=== PATIENT | male | born 1965 | race Caucasian/White ===

== ENCOUNTER 2016-09-08 19:46 | Inpatient (IN) | payer SELFPAY ==
[~2016-09-08] VITALS: Ht 188 cm; Wt 84.0 kg
[2016-09-08 19:47] VITALS: BP 190/88; PULSE 124; RESP 18; TEMP 101.6; O2SAT 98
--- NOTE | 2016-09-08 21:49 | PD ---
HPI Chief Complaint: Injury Time Seen by Provider: 21:44 Travel History International Travel<30 days: No Contact w/Intl Traveler<30days: No Traveled to known affect area: No History of Present Illness HPI 51-year-old male came to the emergency room with history of right foot wound that is not healing. Patient has history of diabetes but he is not taking any medications since he says medication makes him sick. He hasn't checked his blood sugar in a while either. Patient says about 4-5 days ago he noticed a blood blister on his lateral aspect of the right foot. Since then the blister has popped and the wound has not been healing. He has been trying to clean it daily but it has started to look worse and black. He decided to come in today. In triage his temperature was 101.5. He says he's been able to walk on that foot. Patient does not have a primary care physician. PFSH Past Medical History Narrative Medical List of his past medical, surgical, social and family history is reviewed from the nursing note. Hypertension: Yes Tetanus Vaccination: < 5 Years Influenza Vaccination: No Past Surgical History Endocrine Surgery: Yes (LITHOTRIPSY) Social History Alcohol Use: Yes (WEEKENDS) Tobacco Use: No Substance Use: Yes (MARIJUANA) Allergies-Medications (Allergen,Severity, Reaction): Coded Allergies: Ampicillin (Verified Allergy, Unknown, 09/08/16) Comments List of his allergies reviewed from the nursing note. However upon asking patient said he broke out into hives in 1970s when he received ampicillin. Since then he has received amoxicillin and penicillin without any problems. Narrative Medication Awaiting for the nurse to do a med reconciliation. However patient told me that he is not taking any medications. Review of Systems Except as stated in HPI: all other systems reviewed are Neg Physical Exam Narrative GENERAL: Awake, alert, anxious, mild distress SKIN: Focused skin assessment warm/dry. Flushed face. Right foot at the head of the fifth metatarsal laterally has a 2 cm diameter black, dry gangrenous looking wound. On the plantar aspect there is a 2 x 3 cm hemorrhagic blister that is fluctuant and nontender. There is significant surrounding erythema on the dorsum of the foot at the mid plantar aspect. The nail bed of the great toe looks ecchymotic but could be gangrene is. The nail is still intact. HEAD: Atraumatic. Normocephalic. EYES: Pupils equal and round. No scleral icterus. No injection or drainage. ENT: No nasal bleeding or discharge. Mucous membranes pink and moist. NECK: Trachea midline. No JVD. CARDIOVASCULAR: Regular rate and rhythm. No murmur appreciated. RESPIRATORY: No accessory muscle use. Clear to auscultation. Breath sounds equal bilaterally. GASTROINTESTINAL: Abdomen soft, non-tender, nondistended. Hepatic and splenic margins not palpable. MUSCULOSKELETAL: No obvious deformities. No clubbing. No cyanosis. No edema. NEUROLOGICAL: Awake and alert. No obvious cranial nerve deficits. Motor grossly within normal limits. Normal speech. PSYCHIATRIC: Appropriate mood and affect; insight and judgment normal. Data Data Last Documented VS Vital Signs Date Time Temp Pulse Resp B/P Pulse Ox O2 Delivery O2 Flow Rate FiO2 09/08/16 23:10 108 16 97 Room Air 09/08/16 22:00 98.3 145/78 Orders Complete Blood Count With Diff (09/08/16 21:52) Comprehensive Metabolic Panel (09/08/16 21:52) Lactic Acid Sepsis Protocol (09/08/16 21:52) Urinalysis - C+S If Indicated (09/08/16 21:52) Blood Culture (09/08/16 21:52) Chest, Single Ap (09/08/16 21:52) Blood Glucose (09/08/16 21:52) Ecg Monitoring (09/08/16 21:52) Iv Access Insert/Monitor (09/08/16 21:52) Oximetry (09/08/16 21:52) Oxygen Administration (09/08/16 21:52) Piperacil-Tazo 4.5 Gm Premix (Zosyn 4.5 (09/08/16 21:52) Sodium Chlor 0.9% 1000 Ml Inj (Ns 1000 M (09/08/16 21:52) Sodium Chlor 0.9% 1000 Ml Inj (Ns 1000 M (09/08/16 21:52) Sodium Chlor 0.9% 1000 Ml Inj (Ns 1000 M (09/08/16 21:52) Resp Blood Gas Venous (09/08/16 ) Mri Foot W&W/O Contrast (09/08/16 ) Acetaminophen (Tylenol) (09/08/16 22:00) Blood Gas Venous (Vbg) (09/08/16 22:43) Admit Order (Ed Use Only) (09/08/16 23:38) Labs Laboratory Tests Test 09/08/16 09/08/16 09/08/16 22:20 22:25 22:43 Lactic Acid Level 1.3 mmol/L White Blood Count 10.3 TH/MM3 Red Blood Count 5.14 MIL/MM3 Hemoglobin 15.0 GM/DL Hematocrit 43.9 % Mean Corpuscular Volume 85.5 FL Mean Corpuscular Hemoglobin 29.1 PG Mean Corpuscular Hemoglobin 34.0 % Concent Red Cell Distribution Width 12.8 % Platelet Count 283 TH/MM3 Mean Platelet Volume 9.0 FL Neutrophils (%) (Auto) 86.3 % Lymphocytes (%) (Auto) 6.7 % Monocytes (%) (Auto) 6.4 % Eosinophils (%) (Auto) 0.1 % Basophils (%) (Auto) 0.5 % Neutrophils # (Auto) 8.9 TH/MM3 Lymphocytes # (Auto) 0.7 TH/MM3 Monocytes # (Auto) 0.7 TH/MM3 Eosinophils # (Auto) 0.0 TH/MM3 Basophils # (Auto) 0.0 TH/MM3 CBC Comment DIFF FINAL Differential Comment Sodium Level 134 MEQ/L Potassium Level 3.8 MEQ/L Chloride Level 100 MEQ/L Carbon Dioxide Level 26.9 MEQ/L Anion Gap 7 MEQ/L Blood Urea Nitrogen 14 MG/DL Creatinine 0.93 MG/DL Estimat Glomerular Filtration 85 ML/MIN Rate Random Glucose 318 MG/DL Calcium Level 9.2 MG/DL Total Bilirubin 1.0 MG/DL Aspartate Amino Transf 12 U/L (AST/SGOT) Alanine Aminotransferase 22 U/L (ALT/SGPT) Alkaline Phosphatase 170 U/L Total Protein 8.1 GM/DL Albumin 3.7 GM/DL Blood Gas Puncture Site PIV Blood Gas Patient Temperature 98.6 Venous Blood pH 7.43 Venous Blood Partial Pressure 40 mmHg CO2 Venous Blood Partial Pressure 32 mmHg O2 Venous Blood HCO3 26 mmol/L Venous Blood Oxygen Saturation 65 % Venous Blood Oxygen Content 12.4 Vol % Venous Blood Base Excess 2.1 mmol/L Oxygen Delivery Device RA Blood Gas Inspired Oxygen 21 % MDM Medical Decision Making Medical Screen Exam Complete: Yes Emergency Medical Condition: Yes Medical Record Reviewed: Yes Differential Diagnosis Dry gangrene, osteomyelitis, sepsis, diabetic wound Narrative Course 11:45 PM given the fever in triage patient was approached as a sepsis and sepsis protocol was started. I went ahead and gave him Zosyn and vancomycin. Patient has not had any reaction to the Zosyn yet. Patient was also given Tylenol for his fever. Blood test results otherwise came back looking okay. I have ordered an MRI of the foot with and without contrast. Awaiting for the MRI to be done and resulted. Patient has been admitted to the hospitalist. Patient has been told about this plan. In my opinion the foot would require aggressive debridement in the OR and depending on the MRI may even require partial amputation. Critical Care Narrative Aggregate critical care time was 30 minutes. Time to perform other separately billable procedures was not included in the critical care time. My time did not include minutes spent treating any other patients simultaneously or on activities that did not directly contribute to the patient's treatment. The services I provided to this patient were to treat and/or prevent clinically significant deterioration that could result in: Sepsis, sepsis protocol, possible osteomyelitis I provided critical care services requiring my management, as noted below: Chart data review, documentation time, medication orders and management, vital sign assessments/reviewing monitor data, ordering and reviewing lab tests, ordering and interpreting/reviewing x-rays and diagnostic studies, care of the patient and discussion of the patient with the admitting physicians. Procedures EKG Prior to Arrival: No Sepsis Criteria SIRS Criteria (2 or more): Temp > 100.9 or < 96.8, Heart rate over 90 Sepsis Criteria (SIRS+source): Infect source susp/known Diagnosis Primary Impression: Sepsis Qualified Code: A41.9 - Sepsis, due to unspecified organism Additional Impressions: Diabetic foot Fever Qualified Code: R50.9 - Fever, unspecified fever cause possible osteomyelitis Dry gangrene Hyperglycemia Admitting Information Admitting Physician Requests: Admit Sourav Muro MD Sep 08, 2016 21:49 Sourav Muro MD Sep 08, 2016 21:49
[2016-09-08] MEDS ORDERED: SODIUM CHLOR 0.9% 1000 ML INJ 1,000 ML IV ONE ×2 (21:52)
[2016-09-08] MEDS ORDERED: VANCOMYCIN INJ 1,000 MG in SODIUM CHLOR 0.9% 250 ML INJ 250 ML IV STA (21:52)
[2016-09-08] MEDS ORDERED: SODIUM CHLOR 0.9% 1000 ML INJ 700 ML IV ONE (21:52)
[2016-09-08] MEDS ORDERED: PIPERACIL-TAZO 4.5 GM PREMIX 100 ML IV STA (21:52)
[2016-09-08 22:00] VITALS: BP 145/78; PULSE 111; RESP 18; TEMP 98.3; O2SAT 98
[2016-09-08] MEDS ORDERED: ACETAMINOPHEN 325 MG TAB PO ONE (22:00)
--- NOTE | 2016-09-08 22:35 | RADRPT ---
EXAM DATE/TIME: 09/08/2016 21:59 [facility] COMPARISON: No previous studies available for comparison. INDICATIONS : Fever. Infection. MEDICAL HISTORY : None. SURGICAL HISTORY : None. ENCOUNTER: Initial ACUITY: 3 days PAIN SCORE: 5/10 LOCATION: Bilateral chest FINDINGS: A single view of the chest demonstrates the lungs to be symmetrically aerated without evidence of mas s, infiltrate or effusion. The cardiomediastinal contours are unremarkable. Osseous structures are intact. CONCLUSION: No acute disease. Henri Thomas MD on September 08, 2016 at 22:32 Board Certified Radiologist. This report was verified electronically.
[2016-09-08 22:51] LABS: AUTOMATED NEUTROPHIL # 8.9 TH/MM3 (1.8-7.7); BASOPHIL % 0.5 % (0.0-2.0); EOSINOPHIL % 0.1 % (0.0-4.0); HEMATOCRIT 43.9 % (39.0-51.0); HEMO FLAGS DIFF FINAL; LYMPH % 6.7 % (9.0-44.0); LYMPHOCYTE # 0.7 TH/MM3 (1.0-4.8); MEAN CELL VOLUME 85.5 FL (80.0-100.0); MEAN CORPUSCULAR HEMOGLOBIN 29.1 PG (27.0-34.0); MONO % 6.4 % (0.0-8.0); NEUT % 86.3 % (16.0-70.0); PLATELET COUNT 283 TH/MM3 (150-450); RED BLOOD COUNT 5.14 MIL/MM3 (4.50-5.90); RED CELL DISTRIBUTION WIDTH 12.8 % (11.6-17.2); WHITE BLOOD COUNT 10.3 TH/MM3 (4.0-11.0)
[2016-09-08 23:09] LABS: BLOOD GAS VENOUS BASE EXCESS 2.1 mmol/L (-2-2); BLOOD GAS VENOUS HCO3 26 mmol/L (22-26); BLOOD GAS VENOUS O2 CONTENT 12.4 Vol % (9.0-17.0); BLOOD GAS VENOUS O2 HGB SAT 65 % (70-76); BLOOD GAS VENOUS PCO2 40 mmHg (44-48); BLOOD GAS VENOUS PO2 32 mmHg (35-40); BLOOD GAS VENOUS pH 7.43 (7.360-7.400); CRITICAL VALUE NO; DRAW SITE PIV; FIO2 21 %; OXYGEN DEVICE RA; STAT NO; TEMP CORR TO 98.6
[2016-09-08 23:10] VITALS: PULSE 108; RESP 16; O2SAT 97
[2016-09-08 23:10] LABS: ALT (GPT) 22 U/L (12-78); ANION GAP 7 MEQ/L (5-15); AST (GOT) 12 U/L (15-37); BICARBONATE 26.9 MEQ/L (21.0-32.0); BLOOD UREA NITROGEN 14 MG/DL (7-18); CHLORIDE 100 MEQ/L (98-107); GLOMERULAR FILTRATION RATE 85 ML/MIN (>89); POTASSIUM 3.8 MEQ/L (3.5-5.1); SODIUM (NA) 134 MEQ/L (136-145)
[2016-09-08 23:12] LABS: ALKALINE PHOSPHATASE 170 U/L (45-117)
--- NOTE | 2016-09-08 23:52 | HHI.HP ---
HPI Service [facility] Primary Care Physician No Primary Care Physician Admission Diagnosis sepsis, diabetic foot, hyperglycemia Diagnoses: (1) Sepsis Diagnosis: Principal (2) Right foot infection Diagnosis: Principal (3) HTN (hypertension) Diagnosis: Principal (4) Dehydration Diagnosis: Principal (5) DM (diabetes mellitus) Diagnosis: Principal Travel History International Travel<30 Days: No Contact w/Intl Traveler <30 Da: No Traveled to Known Affected Are: No History of Present Illness This is a 51-year-old male with PMH of HTN, DM and Non-Compliance who presents to ER with complaint of right foot pain and swelling x4-5 days. States he noticed a blister on his foot which popped on its own, notes area has gotten progressively worse since then. Denies fever or chills. On arrival, BP 190/88 , HR 124, O2 sat 98% on RA, Temp 101.6. CBC unremarkable except for elevated neutrophil count. GFR 85, no previous labs for comparison. BS 318. CXR with no acute findings. MRI ft. With soft tissue inflammation around fifth MTP, no evidence of marrow replacement to confirm osteomyelitis. S/p Blood Cultures, Vanc/Zosyn in ER. Review of Systems Except as stated in HPI: all other systems reviewed are Neg ROS: 14 point review of systems otherwise negative. Past Family Social History Past Medical History PMH: HTN, DM and Non-Compliance Past Surgical History PAST SURGICAL HISTORY: Lithotripsy Allergies: Coded Allergies: Ampicillin (Verified Allergy, Unknown, 09/08/16) Family History PAST FAMILY HISTORY: Reviewed. No h/o DM or CAD Social History PAST SOCIAL HISTORY: Occasional alcohol. Negative for tobacco. Positive for Marijuana. Physical Exam Vital Signs Vital Signs Date Time Temp Pulse Resp B/P Pulse Ox O2 Delivery O2 Flow Rate FiO2 09/08/16 23:10 108 16 97 Room Air 09/08/16 23:10 98 Room Air 09/08/16 22:00 98.3 111 18 145/78 98 Room Air 09/08/16 22:00 98 Room Air 09/08/16 19:47 101.6 124 18 190/88 98 Room Air Physical Exam PE: GENERAL: Middle-aged male in no acute distress. HEENT: PERRLA, EOMI. No scleral icterus or conjunctival pallor. No lid lag or facial droop. CARDIOVASCULAR: Regular rate and rhythm. No obvious murmurs to auscultation. No chest tenderness to palpation. RESPIRATORY: No obvious rhonchi or wheezing. Clear to auscultation. Breath sounds equal bilaterally. GASTROINTESTINAL: Abdomen soft, non-tender, nondistended. BS normal. MUSCULOSKELETAL: Extremities without clubbing, cyanosis, or edema. No obvious deformities. Right foot w/ necrotic wound 5th toe lateral aspect. NEUROLOGICAL: Awake, alert and oriented x4. No focal neurologic deficits. Moving both upper and lower extremities spontaneously. Laboratory Laboratory Tests Test 09/08/16 09/08/16 09/08/16 22:20 22:25 22:43 Lactic Acid Level 1.3 White Blood Count 10.3 Red Blood Count 5.14 Hemoglobin 15.0 Hematocrit 43.9 Mean Corpuscular Volume 85.5 Mean Corpuscular Hemoglobin 29.1 Mean Corpuscular Hemoglobin 34.0 Concent Red Cell Distribution Width 12.8 Platelet Count 283 Mean Platelet Volume 9.0 Neutrophils (%) (Auto) 86.3 Lymphocytes (%) (Auto) 6.7 Monocytes (%) (Auto) 6.4 Eosinophils (%) (Auto) 0.1 Basophils (%) (Auto) 0.5 Neutrophils # (Auto) 8.9 Lymphocytes # (Auto) 0.7 Monocytes # (Auto) 0.7 Eosinophils # (Auto) 0.0 Basophils # (Auto) 0.0 CBC Comment DIFF FINAL Differential Comment Sodium Level 134 Potassium Level 3.8 Chloride Level 100 Carbon Dioxide Level 26.9 Anion Gap 7 Blood Urea Nitrogen 14 Creatinine 0.93 Estimat Glomerular Filtration 85 Rate Random Glucose 318 Calcium Level 9.2 Total Bilirubin 1.0 Aspartate Amino Transf 12 (AST/SGOT) Alanine Aminotransferase 22 (ALT/SGPT) Alkaline Phosphatase 170 Total Protein 8.1 Albumin 3.7 Blood Gas Puncture Site PIV Blood Gas Patient Temperature 98.6 Venous Blood pH 7.43 Venous Blood Partial Pressure 40 CO2 Venous Blood Partial Pressure 32 O2 Venous Blood HCO3 26 Venous Blood Oxygen Saturation 65 Venous Blood Oxygen Content 12.4 Venous Blood Base Excess 2.1 Oxygen Delivery Device RA Blood Gas Inspired Oxygen 21 Date/Time Procedure Status Source Growth 09/08/16 22:25 Aerobic Blood Culture Received Blood Peripheral Pending 09/08/16 22:25 Anaerobic Blood Culture Received Blood Peripheral Pending Result Diagram: 09/08/16222409/08/162224 Assessment and Plan Problem List: (1) Sepsis ICD Code: A41.9 Status: Acute (2) Right foot infection ICD Code: L08.9 Status: Acute (3) Dehydration ICD Code: E86.0 Status: Acute (4) HTN (hypertension) ICD Code: I10 Status: Acute (5) DM (diabetes mellitus) ICD Code: E11.9 Status: Acute Assessment and Plan A/P: 1. Sepsis: HR 124, Temp 101.6, WBC normal, elevated neutrophil count, Source- Right Foot Infection. S/p Blood Cult, Vanc/Zosyn in ER. Follow up cultures, continue IV Abx. 2. Right Foot Infection: ongoing right foot infection x5 days, Foot MRI w/ no evidence of osteomyelitis, images reviewed by me. Continue w/ above treatment/ plan. Wound Consult for further evaluation. 3. Dehydration: GFR 85, no previous labs for comparison, BUN/Creatinine normal. IVF for hydration, repeat labs in am. 4. HTN: BP 170's on arrival, currently 140's, will monitor. 5. DM: Uncontrolled, secondary to Non-Compliance. Sliding scale w/ Accu- Cheks. Check Hgb A1c. 6. DVT Prophylaxis: Heparin sq 7. Social work for d/c planning as needed. 8. Case discussed w/ ER physician at length. Physician Certification 2 Midnight Certification Type: Admission for Inpatient Services Order for Inpatient Services The services are ordered in accordance with Medicare regulations or non- Medicare payer requirements, as applicable. In the case of services not specified as inpatient-only, they are appropriately provided as inpatient services in accordance with the 2-midnight benchmark. Estimated LOS (days): 2 days is the estimated time the patient will need to remain in the hospital, assuming treatment plan goals are met and no additional complications. Post-Hospital Plan: Not yet determined Problem Qualifiers (1) Sepsis: Qualified Code: A41.9 - Sepsis, due to unspecified organism Alta Wilson MD Sep 08, 2016 23:52
[2016-09-09] VITALS (9 sets, daily range): BP systolic 160–195; BP diastolic 82–98; PULSE 88–110; RESP 16–20; TEMP 97.6–98.6; O2SAT 98–99
[2016-09-09] MEDS ORDERED: Vancomycin Consult Pharmacy 1 EA OTHER SCH
[2016-09-09] MEDS ORDERED: ACETAMINOPHEN 325 MG TAB PO PRN
[2016-09-09] MEDS ORDERED: ONDANSETRON HCL 4 MG/2 ML VIAL IVP PRN
[2016-09-09] MEDS ORDERED: DEXTROSE 50% IN WATER 50 ML VIAL(D50) IV PRN
[2016-09-09] MEDS ORDERED: BISACODYL 10 MG SUPP RECTAL PRN
[2016-09-09] MEDS ORDERED: SENNOSIDES 8.6 MG TAB PO PRN
[2016-09-09] MEDS ORDERED: MAGNESIUM HYDROXIDE SUSP 30 ML CUP PO PRN
[2016-09-09] MEDS ORDERED: MORPHINE SULFATE 4 MG/ML INJ IV PRN
[2016-09-09] MEDS ORDERED: LACTULOSE SYRUP 20 GM/30 ML CUP PO PRN
[2016-09-09] MEDS ORDERED: SODIUM CHLORIDE 0.9% FLUSH 10 ML FLUSH IV FLUSH PRN
[2016-09-09] MEDS ORDERED: GLUCAGON 1 MG/ML VIAL OTHER PRN
--- NOTE | 2016-09-09 00:52 | RADRPT ---
EXAM DATE/TIME: 09/08/2016 23:35 [facility] COMPARISON: No previous studies available for comparison. INDICATIONS : Osteomyelitis. Wound rt lateral foot 5th metatarsal area CONTRAST: 16 cc Omniscan (gadodiamide) IV MEDICAL HISTORY : Diabetes mellitus type 2. Renal calculi. SURGICAL HISTORY : Left leg surgery. ENCOUNTER: Initial ACUITY: 1 week PAIN SCORE: 6/10 LOCATION: Right foot TECHNIQUE: Multiplanar, multisequence MRI examination was performed without contrast and after the intravenous a dministration of gadolinium. FINDINGS: Study was performed without the benefit of a plain film. BONE/CARTILAGE: Bone marrow signal is homogeneous. Articular cartilage signal is within normal limits. TENDONS: All of the visualized tendons are intact. There is some soft tissue swelling in the dorsum of the nolan t and throughout the interosseous musculature particularly between the fourth and fifth metatarsal sh afts MISCELLANEOUS: Plantar aponeurosis is intact. Sinus tarsi is within normal limits. POST-CONTRAST: There is diffuse enhancement of the fifth MTP joint and stranding soft tissues. I do not see any lj ow replacement on the T1 image to confirm osteomyelitis. Plain film would be helpful to evaluate for osteolysis. CONCLUSION: Soft tissue inflammation is around the fifth MTP joint. I don't see any evidence of marrow replacemen t to confirm osteomyelitis. No evidence of acute fracture or tendinous retraction. Plain film would b e helpful to evaluate for foreign body and osteolysis. Claudio Colunga MD on September 09, 2016 at 0:45 Board Certified Radiologist. This report was verified electronically.
[2016-09-09] MEDS ORDERED: VANCOMYCIN INJ 1,750 MG in SODIUM CHLORID 0.9% 500 ML INJ 500 ML IV ONE (00:55)
[2016-09-09] MEDS: SODIUM CHLOR 0.9% 1000 ML INJ 1,000 ML IV SCH ×3 (01:07→19:52)
[2016-09-09] MEDS ORDERED: GADODIAMIDE PF 287 MG/ML 20 ML VIAL (for RAD MRI) IV ONE (01:24)
[2016-09-09 02:04] LABS: PROTHROMBIN TIME - PATIENT 10.7 SEC (9.8-11.6)
[2016-09-09] MEDS: INSULIN ASPART SUPPLEMENTAL SCALE SQ SCH ×4 (05:52→20:44)
[2016-09-09] MEDS: HEPARIN SODIUM - SQ 10,000 UNITS/ML VIAL SQ SCH ×2 (08:59→20:46)
[2016-09-09] MEDS: DOCUSATE SODIUM 50 MG/SENNA 8.6 MG TAB PO SCH ×2 (08:59→20:52)
[2016-09-09] MEDS: SODIUM CHLORIDE 0.9% FLUSH 10 ML FLUSH IV FLUSH SCH ×2 (09:00→20:52)
[2016-09-09] MEDS: CEFEPIME INJ 2,000 MG in SODIUM CHLORIDE 0.9% INJ 100 ML IV SCH ×2 (09:59→20:48)
[2016-09-09 10:54] LABS: AUTOMATED NEUTROPHIL # 5.6 TH/MM3 (1.8-7.7); BASOPHIL % 0.6 % (0.0-2.0); EOSINOPHIL # 0.1 TH/MM3 (0-0.4); EOSINOPHIL % 1.4 % (0.0-4.0); HEMATOCRIT 37.4 % (39.0-51.0); HEMO FLAGS DIFF FINAL; LYMPH % 13.3 % (9.0-44.0); MEAN CELL VOLUME 85.5 FL (80.0-100.0); MEAN CORPUSCULAR HGB CONC 33.9 % (32.0-36.0); MONO % 7.7 % (0.0-8.0); PLATELET COUNT 237 TH/MM3 (150-450); RED BLOOD COUNT 4.38 MIL/MM3 (4.50-5.90); RED CELL DISTRIBUTION WIDTH 12.8 % (11.6-17.2); WHITE BLOOD COUNT 7.3 TH/MM3 (4.0-11.0)
[2016-09-09 11:32] LABS: ALKALINE PHOSPHATASE 125 U/L (45-117); ALT (GPT) 17 U/L (12-78); ANION GAP 6 MEQ/L (5-15); AST (GOT) 11 U/L (15-37); BICARBONATE 27.3 MEQ/L (21.0-32.0); BLOOD UREA NITROGEN 10 MG/DL (7-18); CHLORIDE 106 MEQ/L (98-107); GLOMERULAR FILTRATION RATE 122 ML/MIN (>89); POTASSIUM 3.6 MEQ/L (3.5-5.1); SODIUM (NA) 139 MEQ/L (136-145); TOTAL BILIRUBIN ADULT 0.6 MG/DL (0.2-1.0)
--- NOTE | 2016-09-09 12:49 | HHI.PR ---
Subjective Remarks No acute events overnight. Afebrile since 7 PM last night. Vital signs stable. Patient denies any pain. States he is able to walk on his foot without any issue. Objective Vitals Vital Signs Date Time Temp Pulse Resp B/P Pulse Ox O2 Delivery O2 Flow Rate FiO2 09/09/16 08:20 Room Air 09/09/16 08:00 98.2 90 20 182/90 99 09/09/16 04:00 Room Air 09/09/16 04:00 97.6 90 18 188/90 99 09/09/16 03:05 91 09/09/16 03:05 Room Air 09/09/16 01:45 97.8 92 20 195/91 99 09/08/16 23:10 108 16 97 Room Air 09/08/16 23:10 98 Room Air 09/08/16 22:00 98.3 111 18 145/78 98 Room Air 09/08/16 22:00 98 Room Air 09/08/16 19:47 101.6 124 18 190/88 98 Room Air I/O 09/08/16 09/08/16 09/08/16 09/09/16 09/09/16 09/09/16 07:00 15:00 23:00 07:00 15:00 23:00 Intake Total 997 ml Balance 997 ml Intake Oral 300 ml IV Total 697 ml # Voids 1 # Bowel Movements 0 Result Diagram: 09/09/16 1030 09/09/16 1030 Objective Remarks GENERAL: Middle-aged male in no acute distress. HEENT: PERRLA, EOMI. No scleral icterus or conjunctival pallor. No lid lag or facial droop. CARDIOVASCULAR: Regular rate and rhythm. No obvious murmurs to auscultation. No chest tenderness to palpation. RESPIRATORY: No obvious rhonchi or wheezing. Clear to auscultation. Breath sounds equal bilaterally. GASTROINTESTINAL: Abdomen soft, non-tender, nondistended. BS normal. MUSCULOSKELETAL: Extremities without clubbing, cyanosis, or edema. No obvious deformities. Right foot w/ necrotic wound 5th toe lateral aspect. Surrounding erythema to the ankle. No fluctuance noted. NEUROLOGICAL: Awake, alert and oriented x4. No focal neurologic deficits. Moving both upper and lower extremities spontaneously. A/P Problem List: (1) Sepsis ICD Code: A41.9 Status: Acute (2) Right foot infection ICD Code: L08.9 Status: Acute (3) Dehydration ICD Code: E86.0 Status: Acute (4) HTN (hypertension) ICD Code: I10 Status: Acute (5) DM (diabetes mellitus) ICD Code: E11.9 Status: Acute Assessment and Plan 1. Sepsis: HR 124, Temp 101.6, WBC normal, elevated neutrophil count, Source- Right Foot Infection. S/p Blood Cult, Vanc/Zosyn in ER. Follow up cultures, continue IV Abx. No growth 1 day. 2. Right Foot Infection: ongoing right foot infection x5 days, Foot MRI w/ no evidence of osteomyelitis. Continue w/ above treatment/plan. Wound Consult for further evaluation. Consult podiatry for possible debridement. Foot x-ray pending. 3. HTN: BP 170's on arrival, remains elevated in the [id number] systolic. Started on lisinopril. 4. DM: Uncontrolled, secondary to Non-Compliance. Sliding scale w/ Accu- Cheks. Check Hgb A1c, pending. Started Levemir 5 units twice a day. 6. DVT Prophylaxis: Heparin sq 7. Social work for d/c planning as needed. Problem Qualifiers (1) Sepsis: Qualified Code: A41.9 - Sepsis, due to unspecified organism Larissa Arroyo MD R3 Sep 09, 2016 12:49
[2016-09-09] MEDS ORDERED: LISINOPRIL 5 MG TAB PO SCH (13:00)
[2016-09-09 13:05] LABS: HEMOGLOBIN A1a 1.3 %; HEMOGLOBIN Ao 76.2 %; HEMOGLOBIN F 1.7 %; HEMOGLOBIN P3 5.3 %
--- NOTE | 2016-09-09 13:49 | RADRPT ---
EXAM DATE/TIME: 09/09/2016 13:02 [facility] COMPARISON: No previous studies available for comparison. INDICATIONS : Right foot pain. MEDICAL HISTORY : Diabetes mellitus type II. SURGICAL HISTORY : None. ENCOUNTER: Subsequent ACUITY: 2 days PAIN SCORE: 3/10 LOCATION: Right foot. FINDINGS: Three view examination of the right foot demonstrates soft tissue swelling of the lateral foot with a small amount of subcutaneous air at the base of the fifth toe. No acute bony abnormality. No fractur e or dislocation. CONCLUSION: 1. Soft tissue swelling of the lateral right foot with small ocular subcutaneous air. Findings most c haracteristic of a cellulitis, possibly with a gas producing organism. No acute bony abnormality. Joe Jaime MD on September 09, 2016 at 13:45 Board Certified Radiologist. This report was verified electronically.
[2016-09-09] MEDS ORDERED: VANCOMYCIN 1,500 MG/NS 500 ML IV ONE ×2 (14:00)
[2016-09-09] MEDS: INSULIN DETEMIR 100 UNITS/ML VIAL SQ SCH (20:45)
[2016-09-10] VITALS (11 sets, daily range): BP systolic 118–200; BP diastolic 54–116; PULSE 74–106; RESP 16–20; TEMP 97.9–99.1; O2SAT 97–100
[2016-09-10] MEDS: hydrALAZINE HCL 20 MG/ML VIAL IV PUSH PRN ×2 (00:47→20:16)
[2016-09-10] MEDS: SODIUM CHLOR 0.9% 1000 ML INJ 1,000 ML IV SCH ×2 (05:47→15:52)
[2016-09-10] MEDS: INSULIN ASPART SUPPLEMENTAL SCALE SQ SCH ×3 (05:47→16:00)
[2016-09-10 06:52] LABS: BASOPHIL % 0.5 % (0.0-2.0); EOSINOPHIL # 0.1 TH/MM3 (0-0.4); EOSINOPHIL % 1.6 % (0.0-4.0); HEMATOCRIT 39.3 % (39.0-51.0); HEMO FLAGS DIFF FINAL; LYMPH % 12.8 % (9.0-44.0); MEAN CELL VOLUME 84.7 FL (80.0-100.0); MEAN CORPUSCULAR HEMOGLOBIN 28.8 PG (27.0-34.0); MONO % 9.7 % (0.0-8.0); NEUT % 75.4 % (16.0-70.0); PLATELET COUNT 257 TH/MM3 (150-450); RED BLOOD COUNT 4.64 MIL/MM3 (4.50-5.90); RED CELL DISTRIBUTION WIDTH 12.7 % (11.6-17.2); WHITE BLOOD COUNT 7.9 TH/MM3 (4.0-11.0)
[2016-09-10 07:49] LABS: ALT (GPT) 19 U/L (12-78); ANION GAP 6 MEQ/L (5-15); AST (GOT) 14 U/L (15-37); BICARBONATE 25.8 MEQ/L (21.0-32.0); BLOOD UREA NITROGEN 9 MG/DL (7-18); CHLORIDE 107 MEQ/L (98-107); GLOMERULAR FILTRATION RATE 136 ML/MIN (>89); POTASSIUM 3.5 MEQ/L (3.5-5.1); SODIUM (NA) 139 MEQ/L (136-145)
[2016-09-10 07:51] LABS: ALKALINE PHOSPHATASE 150 U/L (45-117); TOTAL BILIRUBIN ADULT 0.4 MG/DL (0.2-1.0)
[2016-09-10] MEDS: DOCUSATE SODIUM 50 MG/SENNA 8.6 MG TAB PO SCH ×2 (09:00→21:00)
[2016-09-10] MEDS: INSULIN DETEMIR 100 UNITS/ML VIAL SQ SCH ×3 (09:00→21:47)
[2016-09-10] MEDS: LISINOPRIL 10 MG TAB PO SCH (09:10)
[2016-09-10] MEDS: CEFEPIME INJ 2,000 MG in SODIUM CHLORIDE 0.9% INJ 100 ML IV SCH ×2 (09:11→21:00)
[2016-09-10] MEDS: SODIUM CHLORIDE 0.9% FLUSH 10 ML FLUSH IV FLUSH SCH ×2 (09:11→21:00)
--- NOTE | 2016-09-10 09:15 | PD.VS.CON ---
History of Present Illness Chief Complaint: right foot wound for more than a week. Consult Requested by: calvin Schreiber History of Present Illness 51 year old with right diabetic foot wound for more than a week. Hx of smoking and diabetes. Past/Family/Social History Past Medical History Past Medical History PMH: HTN, DM and Non-Compliance Past Surgical History PAST SURGICAL HISTORY: Lithotripsy Allergies: Coded Allergies: Ampicillin (Verified Allergy, Unknown, 09/08/16) Family History PAST FAMILY HISTORY: Reviewed. No h/o DM or CAD Social History PAST SOCIAL HISTORY: Occasional alcohol. Negative for tobacco. Positive for Marijuana. Coded Allergies: Ampicillin (Verified Allergy, Unknown, 09/08/16) Physical Exam Vitals/I&O Date Time Temp Pulse Resp B/P Pulse Ox O2 Delivery O2 Flow Rate FiO2 09/10/16 04:28 98.0 90 16 187/91 98 09/10/16 04:00 Room Air 09/10/16 00:07 98.3 85 16 188/93 98 09/10/16 00:00 Room Air 09/09/16 20:25 98.5 93 16 179/89 99 170/90 09/09/16 20:00 Room Air 09/09/16 20:00 110 09/09/16 16:00 Room Air 09/09/16 16:00 98.6 90 20 160/98 98 09/09/16 12:00 Room Air 09/09/16 12:00 97.7 98 20 186/82 99 09/10/16 09/10/16 09/10/16 07:00 15:00 23:00 Intake Total 2736 ml Balance 2736 ml Neck: supple Heart: regular Lungs: CTA b Vascular: palpable femoral bilaterally left dp/pt palpable right dp/pt with signals. Extremities: right foot with 5th MT eschar and plantar 1st MT ecchymosis. Erythema right foot. Laboratory Tests Test 09/09/16 09/10/16 10:30 06:00 White Blood Count 7.3 7.9 Red Blood Count 4.38 4.64 Hemoglobin 12.7 13.4 Hematocrit 37.4 39.3 Mean Corpuscular Volume 85.5 84.7 Mean Corpuscular Hemoglobin 29.0 28.8 Mean Corpuscular Hemoglobin 33.9 34.0 Concent Red Cell Distribution Width 12.8 12.7 Platelet Count 237 257 Mean Platelet Volume 9.1 9.2 Neutrophils (%) (Auto) 77.0 75.4 Lymphocytes (%) (Auto) 13.3 12.8 Monocytes (%) (Auto) 7.7 9.7 Eosinophils (%) (Auto) 1.4 1.6 Basophils (%) (Auto) 0.6 0.5 Neutrophils # (Auto) 5.6 6.0 Lymphocytes # (Auto) 1.0 1.0 Monocytes # (Auto) 0.6 0.8 Eosinophils # (Auto) 0.1 0.1 Basophils # (Auto) 0.0 0.0 CBC Comment DIFF FINAL DIFF FINAL Differential Comment Sodium Level 139 139 Potassium Level 3.6 3.5 Chloride Level 106 107 Carbon Dioxide Level 27.3 25.8 Anion Gap 6 6 Blood Urea Nitrogen 10 9 Creatinine 0.68 0.62 Estimat Glomerular Filtration 122 136 Rate Random Glucose 272 191 Hemoglobin A1c 11.3 Calcium Level 7.9 8.4 Total Bilirubin 0.6 0.4 Aspartate Amino Transf 11 14 (AST/SGOT) Alanine Aminotransferase 17 19 (ALT/SGPT) Alkaline Phosphatase 125 150 Total Protein 6.2 6.6 Albumin 2.6 2.6 Date/Time Procedure Status Source Growth 09/08/16 22:25 Aerobic Blood Culture - Preliminary Resulted Blood Peripheral NO GROWTH IN 1 DAY 09/08/16 22:25 Anaerobic Blood Culture - Preliminary Resulted Blood Peripheral NO GROWTH IN 1 DAY Last 48 hours Impressions Foot X-Ray 09/09/16 0000 Signed Impressions: Service Date/Time: Friday, September 09, 2016 13:02 - CONCLUSION: 1. Soft tissue swelling of the lateral right foot with small ocular subcutaneous air. Findings most characteristic of a cellulitis, possibly with a gas producing organism. No acute bony abnormality. Joe Jaime MD Chest X-Ray 09/08/162151 Signed Impressions: Service Date/Time: Thursday, September 08, 2016 21:59 - CONCLUSION: No acute disease. Henri Thomas MD Assessment and Plan Assessment: (1) Diabetic foot Status: Acute (2) Dry gangrene Status: Acute Plan 51 year old with diabetic foot ulcer with cellulitis and gangrenous changes of the right lower extremity. 1. Hgb a1c 2. CTA aorta with runoff. 3. Vein mapping 4. Arterial evaluation Merritt Rashid DO, FACS Findings on CTA are significant right SFA disease and distal popliteal/ tibioperoneal artery disease. Plan for angiogram to assess runoff vessels this afternoon (awaiting NPO for 8 hours). Needs right lower extremity recanalization vs. bypass. Vein mapping by duplex US with only upper leg vein that appears adequate. Patient made aware of vascular status and risk of limb loss. Merritt Rashid DO Sep 10, 2016 09:15
[2016-09-10] MEDS: HEPARIN SODIUM - SQ 10,000 UNITS/ML VIAL SQ SCH ×2 (09:19→21:46)
--- NOTE | 2016-09-10 09:46 | MB ---
cc: MITZY DOWNING DPM DATE OF CONSULTATION 09/10/2016 REASON FOR CONSULTATION Right foot a dark eschar. Diabetic foot infection. HISTORY OF PRESENT ILLNESS This is a 51-year-old male who states he developed a blood blister and pain on the right foot within the past 4-5 days. The area has gotten progressively worse, is red, swollen and now painful. The patient does admit he is a diabetic. He works; he owns his own [employer] business. He has been excessively working and walking, but now he is very concerned because the area is black. PAST MEDICAL HISTORY Positive for - 1. Diabetes. 2. Hypertension. FAMILY HISTORY He does note he has family, a blood line relative that suffered from diabetes and amputations. ALLERGIES AMPICILLIN. SOCIAL HISTORY Positive for marijuana. Occasional alcohol. No tobacco. OUTPATIENT MEDICATIONS I did not see a list. INPATIENT MEDICATIONS He is receiving - 1. Vancomycin. 2. Cefepime. 3. Please see complete med list in chart. PHYSICAL EXAMINATION VITALS: Temperature is 98, pulse rate 90, respiratory rate 16, blood pressure 187/91. He is sating 98% on room air. GENERAL: This is an alert and oriented gentleman seen bedside exhibiting nonlabored respirations. EXTREMITIES: The bilateral lower extremities are examined. The left lower extremity appeared to be free from any lesion or compromise of the soft tissue envelope. The right lower extremity is examined. There appears to be an eschar with very mild odor of the dorsal distal lateral fifth MPJ. There is significant philippe-eschar erythema that extends to the midfoot. There is no obvious signs of soft tissue emphysema. There is no drainage from the area, there is no obvious fluctuance. Upon attempting to palpate dorsalis pedis and posterior tibialis, I am not able. The foot, however, is warm. There is slight delayed capillary fill time to the right fifth digit. Digits one through five appear to be slightly cool. Sensation is significantly decreased below the patient's ankle. The limb appears to be warm at the level of the ankle and proximal. There is good range of motion of the ankle. LABORATORY FINDINGS White blood cell 7.9, hemoglobin/hematocrit 13 and 39, platelet count is 257. Chem-7 - Sodium is 139, potassium 3.5, chloride 107, CO2 25.8, BUN is 9, random glucose is 191, hemoglobin A1c is 11.3. PT is 10.7, INR 1.0. Blood cultures - No growth 1 day. IMAGING FINDINGS Foot x-ray - Soft tissue swelling, findings most consistent with cellulitis. Of note, possible gas-producing organism. No acute bony abnormality. MRI findings - Soft tissue inflation around the fifth MPJ. No obvious marrow placement to confirm osteomyelitis. There is no acute fracture. ASSESSMENT AND PLAN Right diabetic foot infection. Clinically there is no signs of a gas gangrene event. However, ischemia is noted and absent pulses. My concern is that the circulation maybe be a huge issue. The patient will likely need a fifth ray debridement and amputation of the digits. At this time my main concern is verifying circulation. We may need to move forward with surgery within the next 1-2 days pending the patient's clinical presentation. At this time I wish to evaluate the circulatory status and continue antibiotics. It is probably a good idea to add anaerobic coverage and consult Infectious Disease as well as Vascular. I spoke with Medicine and told them my clinical findings and plan. MARTA García/AMOS /8:25 AM /9:37 AM
[2016-09-10] MEDS ORDERED: IOHEXOL 350 MG/ML 10 ML VIAL (for RAD DIAG) IV ONE (10:32)
--- NOTE | 2016-09-10 12:00 | RADRPT ---
EXAM DATE/TIME: 09/10/2016 10:11 [facility] COMPARISON: No previous studies available for comparison. INDICATIONS : Evaluate for occlusion. IV CONTRAST: 100 cc Omnipaque 350 (iohexol) IV RADIATION DOSE: 2.97 CTDIvol (mGy) MEDICAL HISTORY : Cardiovascular disease. Diabetes mellitus type 2. Hypertension. SURGICAL HISTORY : None. ENCOUNTER: Initial ACUITY: 1 day PAIN SCALE: 0/10 LOCATION: Bilateral lower extremity TECHNIQUE: Volumetric scanning was performed using a multi-row detector CT scanner. The data was post processed with a variety of visualization algorithms including full volume maximum intensity projection, multi -planar sliding thin slab reformation, curved planar reformation, and surface rendering techniques. Using automated exposure control and adjustment of the mA and/or kV according to patient size, radiat ion dose was kept as low as reasonably achievable to obtain optimal diagnostic quality images. DICO M format image data is available electronically for review and comparison. FINDINGS: AORTA: History abdominal aorta with circumferential mixed plaque in the distal abdominal aorta wi th resultant moderate stenosis. The distal aorta measures 13 mm. No aortic aneurysm. VISCERAL ARTERIES: Single bilateral renal arteries which are widely patent. Celiac, SMA, and JASIEL are widely patent. RIGHT LEG: INFLOW: Mild stenosis of the mid common iliac artery secondary to eccentric mixed plaque. Interna l iliac artery is heavily diseased and occluded just beyond the origin. Common femoral artery is agustin nt. OUTFLOW: Bone erosion is patent. There is however mild stenosis of the profunda moderate stenosis of the proximal profunda. SFA is diffusely diseased in the mid to distal thigh with severe stenosis in the mid thigh secondary to noncalcified plaque and focal moderate to severe stenosis in the distal thigh secondary to eccentric calcified plaque. There is occlusion of the popliteal artery at the lev el of the knee with reconstitution of the proximal below-knee popliteal artery. RUNOFF: Small caliber 3 vessel runoff. The tibioperoneal trunk is heavily diseased with occlusion /critical stenosis at the bifurcation. The anterior tibial artery is not well-demonstrated beyond the ankle, likely occluded. LEFT LEG: INFLOW: Mild stenosis of the mid to distal cardiac artery secondary to concentric noncalcified pl aque. Severely diseased internal iliac artery which appears occluded proximally. The external iliac a rtery is patent. OUTFLOW: Profunda is patent. SFA is diffusely diseased in the mid to distal spine are with multip le tandem [id number] stenoses. There is a mild to moderate focal stenosis of the popliteal trina ry at the level of the knee. Below knee popliteal artery is patent. RUNOFF: There is limited three-vessel runoff. Heavily calcified tibioperoneal trunk with tandem m oderate stenoses. GENERAL FINDINGS: Visualized lung bases are clear. Evaluation of the abdominal viscera is limited due to arterial phase technique. Liver, spleen, adrenal glands, and pancreas are grossly unremarkable. Small calcified gal lstones in the gallbladder which otherwise appears unremarkable by CT. Kidneys demonstrate symmetrica l enhancement without evidence for hydronephrosis. There is a punctate calcification in the anterior left inferior likely reflecting calyceal calculus. No significant renal mass. The bowel appears unrem arkable without evidence for obstruction. No significant free fluid or drainable fluid collection. Bladder is mildly distended but otherwise unremarkable. Prostate and seminal vesicles are within norm al limits. CONCLUSION: 1. Moderate distal aortic stenosis secondary to circumferential mixed plaque. 2. No significant iliac inflow stenosis. 3. Diffuse outflow disease bilaterally, right > left. There are moderate to severe stenoses in the ri ght SFA in the mid to distal thigh with occlusion of the right popliteal artery at the level of the k nee joint. 4. Very limited runoff on the right with occlusion/critical stenosis of the distal tibioperoneal trun k and occlusion of the anterior tibial artery at the ankle. Therefore, there is no continuous single in line flow on the right. 5. Limited three-vessel runoff on the left. 6. Punctate obstructing left inferior pole renal calyceal calculus. Dta Barlow MD on September 10, 2016 at 11:30 Board Certified Radiologist. This report was verified electronically.
--- NOTE | 2016-09-10 12:48 | PD.PN.STU ---
Subjective Remarks Patient is a 51 year old male presenting meeting sepsis criteria for a black, painful lesion on his right lateral foot. He states that for the past week he has had increasing pain the area following a blister rupturing. The lesion turned black on 09-08-16 which prompted his presentation to the ED. He is a known diabetic with a family history of both maternal and paternal diabetes necessitating amputations. He does not take any medications and does not test his blood sugar regularly. He was a smoker for 25 years. On initial presentation he met sepsis criteria. He was started on broad spectrum antibiotics and admitted to evaluate possible surgical debridement/amputation of the necrotic tissue as well as supportive care for sepsis. Serial blood cultures have remained negative. Imaging on 09-09-2016 shows involvement of the surrounding soft tissues but no evidence of osteomyelitis. Today the patient states he feels well aside from the pain in his right foot localized around the lesion. He states his feet are usually "not very sensitive " and "numb". He denies chest pain, chest tightness, shortness of breath, headache, muscle aches, fever, cough, join pain, nausea, and vomiting. He is concerned with possible amputation of his foot or leg and the impact it will have on his ability to work in [employer]. He states that two years ago he had a large area of his left calf removed due to necrosis from an insect bite while working. The scar is well healed. Objective Vitals Vital Signs Date Time Temp Pulse Resp B/P Pulse Ox O2 Delivery O2 Flow Rate FiO2 09/10/16 08:00 97.9 106 18 191/91 99 09/10/16 08:00 Room Air 09/10/16 04:28 98.0 90 16 187/91 98 09/10/16 04:00 Room Air 09/10/16 00:07 98.3 85 16 188/93 98 09/10/16 00:00 Room Air 09/09/16 20:25 98.5 93 16 179/89 99 170/90 09/09/16 20:00 Room Air 09/09/16 20:00 110 09/09/16 16:00 Room Air 09/09/16 16:00 98.6 90 20 160/98 98 I/O 09/09/16 09/09/16 09/09/16 09/10/16 09/10/16 09/10/16 07:00 15:00 23:00 07:00 15:00 23:00 Intake Total 997 ml 1028 ml 600 ml 2736 ml Output Total 225 ml Balance 997 ml 1028 ml 375 ml 2736 ml Intake Oral 300 ml 600 ml 600 ml 480 ml IV Total 697 ml 428 ml 2256 ml Output Urine Total 225 ml # Voids 1 10 4 6 # Bowel Movements 0 0 0 Result Diagram: 09/10/16 0600 09/10/16 0600 Other Results Laboratory Tests Test 09/08/16 09/08/16 09/08/16 09/09/16 22:20 22:25 22:43 01:00 Lactic Acid Level 1.3 mmol/L (0.4-2.0) White Blood Count 10.3 TH/MM3 (4.0-11.0) Red Blood Count 5.14 MIL/MM3 (4.50-5.90) Hemoglobin 15.0 GM/DL (13.0-17.0) Hematocrit 43.9 % (39.0-51.0) Mean Corpuscular Volume 85.5 FL (80.0-100.0) Mean Corpuscular Hemoglobin 29.1 PG (27.0-34.0) Mean Corpuscular Hemoglobin 34.0 % Concent (32.0-36.0) Red Cell Distribution Width 12.8 % (11.6-17.2) Platelet Count 283 TH/MM3 (150-450) Mean Platelet Volume 9.0 FL (7.0-11.0) Neutrophils (%) (Auto) 86.3 % (16.0-70.0) Lymphocytes (%) (Auto) 6.7 % (9.0-44.0) Monocytes (%) (Auto) 6.4 % (0.0-8.0) Eosinophils (%) (Auto) 0.1 % (0.0-4.0) Basophils (%) (Auto) 0.5 % (0.0-2.0) Neutrophils # (Auto) 8.9 TH/MM3 (1.8-7.7) Lymphocytes # (Auto) 0.7 TH/MM3 (1.0-4.8) Monocytes # (Auto) 0.7 TH/MM3 (0-0.9) Eosinophils # (Auto) 0.0 TH/MM3 (0-0.4) Basophils # (Auto) 0.0 TH/MM3 (0-0.2) CBC Comment DIFF FINAL Differential Comment Sodium Level 134 MEQ/L (136-145) Potassium Level 3.8 MEQ/L (3.5-5.1) Chloride Level 100 MEQ/L (98-107) Carbon Dioxide Level 26.9 MEQ/L (21.0-32.0) Anion Gap 7 MEQ/L (5-15) Blood Urea Nitrogen 14 MG/DL (7-18) Creatinine 0.93 MG/DL (0.60-1.30) Estimat Glomerular Filtration 85 ML/MIN (>89) Rate Random Glucose 318 MG/DL (74-106) Calcium Level 9.2 MG/DL (8.5-10.1) Total Bilirubin 1.0 MG/DL (0.2-1.0) Aspartate Amino Transf 12 U/L (15-37) (AST/SGOT) Alanine Aminotransferase 22 U/L (12-78) (ALT/SGPT) Alkaline Phosphatase 170 U/L (45-117) Total Protein 8.1 GM/DL (6.4-8.2) Albumin 3.7 GM/DL (3.4-5.0) Blood Gas Puncture Site PIV Blood Gas Patient Temperature 98.6 Venous Blood pH 7.43 (7.360-7.400) Venous Blood Partial Pressure 40 mmHg (44-48) CO2 Venous Blood Partial Pressure 32 mmHg (35-40) O2 Venous Blood HCO3 26 mmol/L (22-26) Venous Blood Oxygen Saturation 65 % (70-76) Venous Blood Oxygen Content 12.4 Vol % (9.0-17.0) Venous Blood Base Excess 2.1 mmol/L (-2-2) Oxygen Delivery Device RA Blood Gas Inspired Oxygen 21 % Prothrombin Time 10.7 SEC (9.8-11.6) Prothromb Time International 1.0 RATIO Ratio Blood Type O POSITIVE Antibody Screen NEGATIVE Blood Bank Comment Test 09/09/16 09/10/16 10:30 06:00 White Blood Count 7.3 TH/MM3 7.9 TH/MM3 (4.0-11.0) (4.0-11.0) Red Blood Count 4.38 MIL/MM3 4.64 MIL/MM3 (4.50-5.90) (4.50-5.90) Hemoglobin 12.7 GM/DL 13.4 GM/DL (13.0-17.0) (13.0-17.0) Hematocrit 37.4 % 39.3 % (39.0-51.0) (39.0-51.0) Mean Corpuscular Volume 85.5 FL 84.7 FL (80.0-100.0) (80.0-100.0) Mean Corpuscular Hemoglobin 29.0 PG 28.8 PG (27.0-34.0) (27.0-34.0) Mean Corpuscular Hemoglobin 33.9 % 34.0 % Concent (32.0-36.0) (32.0-36.0) Red Cell Distribution Width 12.8 % 12.7 % (11.6-17.2) (11.6-17.2) Platelet Count 237 TH/MM3 257 TH/MM3 (150-450) (150-450) Mean Platelet Volume 9.1 FL 9.2 FL (7.0-11.0) (7.0-11.0) Neutrophils (%) (Auto) 77.0 % 75.4 % (16.0-70.0) (16.0-70.0) Lymphocytes (%) (Auto) 13.3 % 12.8 % (9.0-44.0) (9.0-44.0) Monocytes (%) (Auto) 7.7 % (0.0-8.0) 9.7 % (0.0-8.0) Eosinophils (%) (Auto) 1.4 % (0.0-4.0) 1.6 % (0.0-4.0) Basophils (%) (Auto) 0.6 % (0.0-2.0) 0.5 % (0.0-2.0) Neutrophils # (Auto) 5.6 TH/MM3 6.0 TH/MM3 (1.8-7.7) (1.8-7.7) Lymphocytes # (Auto) 1.0 TH/MM3 1.0 TH/MM3 (1.0-4.8) (1.0-4.8) Monocytes # (Auto) 0.6 TH/MM3 0.8 TH/MM3 (0-0.9) (0-0.9) Eosinophils # (Auto) 0.1 TH/MM3 0.1 TH/MM3 (0-0.4) (0-0.4) Basophils # (Auto) 0.0 TH/MM3 0.0 TH/MM3 (0-0.2) (0-0.2) CBC Comment DIFF FINAL DIFF FINAL Differential Comment Sodium Level 139 MEQ/L 139 MEQ/L (136-145) (136-145) Potassium Level 3.6 MEQ/L 3.5 MEQ/L (3.5-5.1) (3.5-5.1) Chloride Level 106 MEQ/L 107 MEQ/L (98-107) (98-107) Carbon Dioxide Level 27.3 MEQ/L 25.8 MEQ/L (21.0-32.0) (21.0-32.0) Anion Gap 6 MEQ/L (5-15) 6 MEQ/L (5-15) Blood Urea Nitrogen 10 MG/DL (7-18) 9 MG/DL (7-18) Creatinine 0.68 MG/DL 0.62 MG/DL (0.60-1.30) (0.60-1.30) Estimat Glomerular Filtration 122 ML/MIN 136 ML/MIN Rate (>89) (>89) Random Glucose 272 MG/DL 191 MG/DL (74-106) (74-106) Hemoglobin A1c 11.3 % (4.3-6.0) Calcium Level 7.9 MG/DL 8.4 MG/DL (8.5-10.1) (8.5-10.1) Total Bilirubin 0.6 MG/DL 0.4 MG/DL (0.2-1.0) (0.2-1.0) Aspartate Amino Transf 11 U/L (15-37) 14 U/L (15-37) (AST/SGOT) Alanine Aminotransferase 17 U/L (12-78) 19 U/L (12-78) (ALT/SGPT) Alkaline Phosphatase 125 U/L 150 U/L (45-117) (45-117) Total Protein 6.2 GM/DL 6.6 GM/DL (6.4-8.2) (6.4-8.2) Albumin 2.6 GM/DL 2.6 GM/DL (3.4-5.0) (3.4-5.0) Imaging Last 72 hours Impressions Foot X-Ray 09/09/16 0000 Signed Impressions: Service Date/Time: Friday, September 09, 2016 13:02 - CONCLUSION: 1. Soft tissue swelling of the lateral right foot with small ocular subcutaneous air. Findings most characteristic of a cellulitis, possibly with a gas producing organism. No acute bony abnormality. Joe Jaime MD Chest X-Ray 09/08/162151 Signed Impressions: Service Date/Time: Thursday, September 08, 2016 21:59 - CONCLUSION: No acute disease. Henri Thomas MD Foot MRI 09/08/16 0000 Signed Impressions: Service Date/Time: Thursday, September 08, 2016 23:35 - CONCLUSION: Soft tissue inflammation is around the fifth MTP joint. I don't see any evidence of marrow replacement to confirm osteomyelitis. No evidence of acute fracture or tendinous retraction. Plain film would be helpful to evaluate for foreign body and osteolysis. Claudio Colunga MD Objective Remarks General- Patient is well developed, well nourished, anxious Cardiovascular- Regualr rate and rhythm, no rubs murmurs or gallops Pulmonary- Breath sounds clear bilaterally Integumentary- 6cm by 3cm lesion noted on the right lateral foot with ulceration of the skin. There is minimal thin clear drainage from the wound Vascular- Femoral pulses palpable, posterior tibial pulse 1+ on left and absent on right, Dorsalis pedis 2+ on left and 1+ on right Neuro- Decreased sensation bilaterally, inability to distinguish light touch Medications and IVs Current Medications Medications (Trade) Dose Ordered Sig/Wilma Route PRN Reason Start Time Stop Time Status Last Admin Dose Admin Dextrose (D50w (Vial) Inj) 50 ml UNSCH PRN IV HYPOGLYCEMIA-SEE COMMENTS 09/09/16 00:00 Glucagon 1 mg 1 mg UNSCH PRN OTHER HYPOGLYCEMIA-SEE COMMENTS 09/09/16 00:00 Pharmacy Profile Note 0 ml @ 0 mls/hr UNSCH OTHER 09/09/16 00:00 Cefepime HCl 2000 mg/Sodium Chloride 100 ml @ 200 mls/hr Q12H IV 09/09/16 09:00 09/10/16 09:11 Sodium Chloride (NS 1000 ml Inj) 1,000 ml @ 100 mls/hr Q10H IV 09/08/16 23:52 09/10/16 05:47 Sodium Chloride (NS Flush) 2 ml UNSCH PRN IV FLUSH FLUSH AFTER USING IV ACCESS 09/09/16 00:00 Sodium Chloride (NS Flush) 2 ml BID IV FLUSH 09/09/16 09:00 09/10/16 09:11 Ondansetron HCl (Zofran Inj) 4 mg Q6H PRN IVP NAUSEA OR VOMITING 09/09/16 00:00 Heparin Sodium (Porcine) (Heparin Inj) 5,000 units Q12H SQ 09/09/16 09:00 09/10/16 09:19 Acetaminophen (Tylenol) 650 mg Q6H PRN PO FEVER/PAIN SCALE 1 TO 2 09/09/16 00:00 Acetaminophen/ Hydrocodone Bitart ([place] 5-325 Mg) 1 tab Q4H PRN PO PAIN SCALE 3 TO 5 09/09/16 00:00 Morphine Sulfate (Morphine Inj) 2 mg Q3H PRN IV Pain 6-10 09/09/16 00:00 Senna/Docusate Sodium (Hailey-Colace) 1 tab BID PO 09/09/16 09:00 Magnesium Hydroxide (Milk Of Magnesia Liq) 30 ml Q12H PRN PO MILD - MODERATE CONSTIPATION 09/09/16 00:00 Sennosides (Senokot) 17.2 mg Q12H PRN PO MODERATE - SEVERE CONSTIPATION 09/09/16 00:00 Bisacodyl (Dulcolax Supp) 10 mg DAILY PRN RECTAL SEVERE CONSITIPATION 09/09/16 00:00 Lactulose (Lactulose Liq) 30 ml DAILY PRN PO SEVERE CONSITIPATION 09/09/16 00:00 Miscellaneous Information SPECIFIC LAB TO BE GREG... ONCE ONCE .XX 09/10/16 13:45 09/10/16 13:46 Insulin Detemir (Levemir Inj) 5 units Q12HR SQ 09/09/16 21:00 09/09/16 20:45 Hydralazine HCl (Apresoline Inj) 10 mg Q4H PRN IV PUSH SBP>180, DBP>100 09/09/16 13:00 09/10/16 00:47 Lisinopril (Prinivil) 10 mg DAILY PO 09/10/16 09:00 09/10/16 09:10 A/P Assessment and Plan Wound concerning for impaired healing from minimal circulation and sensation secondary to diabetic neuropathy. Vascular surgery consulted and requested SHANNON testing to evaluate extent of impaired circulation. Pending results of testing surgical intervention for debridement with possible amputation of the right 5th metatarsal expected within the next day. 1)Necrotic foot ulcer 2)Uncontrolled Diabetes Mellitus 3)Diabetic neuropathy 4)Smoker (former) Discharge Planning Pending evaluation by vascular surgery Sariah Bangura M3 Sep 10, 2016 12:48
[2016-09-10] MEDS ORDERED: PHARMACY ORDERED LAB ONE (13:45)
--- NOTE | 2016-09-10 14:58 | RADRPT ---
EXAM DATE/TIME: 09/10/2016 00:00 [facility] COMPARISON: No previous studies available for comparison. INDICATIONS : Sepsis, Diabetic Foot Infection, Hyperglycemia TECHNIQUE: Five-station segmental examination of the lower extremities was performed. Pulsed-cuff waveform tracings and pressures were recorded. Ankle-brachial indices and toe-brachial indices were calculated. PRESSURES (mmHg): Brachial (arm): Right IV SITE Left 211 Left Lower Thigh: Right 210 Left 225 Calf: Right 190 Left 207 Ankle: Right 103 Left 212 Toe: Right 48 Left 153 SHANNON: Right 0.49 Left 1.00 TBI: Right 0.23 Left 0.73 PULSED CUFF WAVEFORMS: Biphasic waveforms to the right knee with monophasic waveforms in the right ankle and toe. Biphasic w aveforms throughout the left. CONCLUSION: 1. Significantly diminished blood flow on the right, rest pain range, corresponding to outflow and ru noff disease. 2. Decreased blood flow on the left corresponding to mild outflow disease. SHANNON is likely falsely elev ated due to noncompressible vessels. Dat Barlow MD on September 10, 2016 at 14:26 Board Certified Radiologist. This report was verified electronically.
--- NOTE | 2016-09-10 16:36 | RADRPT ---
EXAM DATE/TIME: 09/10/2016 12:28 [facility] COMPARISON: No previous studies available for comparison. INDICATIONS : Preop arterial surgery. Diabetic foot ulcer. MEDICAL HISTORY : Hypertension. Renal calculi. Diabetes. Substance use. SURGICAL HISTORY : Litrotripsy. ENCOUNTER: Initial ACUITY: 1 day PAIN SCORE: 0/10 LOCATION: Bilateral leg. TECHNIQUE: Venous ultrasound of the left and right leg was performed from the inguinal ligament to the proximal calf. Real-time, color Doppler and spectral tracing, compression and augmentation techniques were us ed. FINDINGS: RIGHT LEG: There is normal compressibility of the deep venous system from the inguinal region to the proximal ca lf. No echogenic clot is seen in the lumen of the common femoral, femoral, popliteal, and posterior tibial veins. There is a normal response of the venous system to proximal and distal augmentation an d respiration. Incidental note is made of enlarged right inguinal lymph nodes the largest measuring 3.8 x 0.9 x 1.7 cm. LEFT LEG: There is normal compressibility of the deep venous system from the inguinal region to the proximal ca lf. No echogenic clot is seen in the lumen of the common femoral, femoral, popliteal, and posterior tibial veins. There is a normal response of the venous system to proximal and distal augmentation an d respiration. CONCLUSION: 1. No sonographic evidence for lower extremity DVT. 2. Incidental note of nonspecific right inguinal adenopathy. Dat Barlow MD on September 10, 2016 at 16:31 Board Certified Radiologist. This report was verified electronically.
[2016-09-10] MEDS: HEPARIN SODIUM - IV 10,000 UNITS/10 ML VIAL ONE ×2 (16:56→17:16)
[2016-09-10] MEDS: MIDAZOLAM HCL 5 MG/ML VIAL (1 ML) ONE ×6 (16:56→17:58)
[2016-09-10] MEDS ORDERED: IOHEXOL 300 MG/ML 100 ML BTL (for Rad CT) OTHER ONE (16:57)
[2016-09-10] MEDS ORDERED: VANCOMYCIN INJ 1,250 MG in SODIUM CHLOR 0.9% 250 ML INJ 250 ML IV SCH (17:00)
--- NOTE | 2016-09-10 17:00 | RADRPT ---
EXAM DATE/TIME: 09/10/2016 15:13 [facility] COMPARISON: No previous studies available for comparison. INDICATIONS : Preop arterial surgery. Diabetic foot ulcer. MEDICAL HISTORY : Hypertension. Renal calculi. Diabetes. Substance use. SURGICAL HISTORY : Litrotripsy. ENCOUNTER: Initial ACUITY: 1 day PAIN SCORE: 0/10 LOCATION: Bilateral leg. GREATER SAPHENOUS VEIN THIGH: PROXIMAL: Right 4 mm Left 3 mm MID: Right 3 mm Left 1 mm DISTAL: Right 3 mm Left 2 mm CALF: PROXIMAL: Right 2 mm Left 1 mm MID: Right 1 mm Left 1 mm DISTAL: Right 3 mm Left 2 mm FINDINGS: The venous system of the lower extremities are patent by color Doppler imaging. Measurements of the leg veins (in mm) are listed above. CONCLUSION: Venous mapping as above. Kumar De La Paz MD on September 10, 2016 at 16:57 Board Certified Radiologist. This report was verified electronically.
--- NOTE | 2016-09-10 17:06 | HHI.PR ---
Subjective Remarks Patient is very anxious about the possibility of partial amputation. Otherwise he has no new complaints. Pain is controlled. Patient reports vascular surgery is planning for endovascular intervention. Objective Vitals Vital Signs Date Time Temp Pulse Resp B/P Pulse Ox O2 Delivery O2 Flow Rate FiO2 09/10/16 12:00 97.9 96 18 190/100 99 09/10/16 08:16 99 09/10/16 08:00 97.9 106 18 191/91 99 09/10/16 08:00 Room Air 09/10/16 04:28 98.0 90 16 187/91 98 09/10/16 04:00 Room Air 09/10/16 00:07 98.3 85 16 188/93 98 09/10/16 00:00 Room Air 09/09/16 20:25 98.5 93 16 179/89 99 170/90 09/09/16 20:00 Room Air 09/09/16 20:00 110 I/O 09/09/16 09/09/16 09/09/16 09/10/16 09/10/16 09/10/16 07:00 15:00 23:00 07:00 15:00 23:00 Intake Total 997 ml 1028 ml 600 ml 2736 ml 400 ml Output Total 225 ml Balance 997 ml 1028 ml 375 ml 2736 ml 400 ml Intake Oral 300 ml 600 ml 600 ml 480 ml IV Total 697 ml 428 ml 2256 ml 400 ml Output Urine Total 225 ml # Voids 1 10 4 6 # Bowel Movements 0 0 0 Result Diagram: 09/10/16 0600 09/10/16 0600 Imaging Last Impressions Lower Extremity Ultrasound 09/10/16 0000 Signed Impressions: Service Date/Time: Saturday, September 10, 2016 12:28 - CONCLUSION: 1. No sonographic evidence for lower extremity DVT. 2. Incidental note of nonspecific right inguinal adenopathy. Dat Barlow MD Aorta w/Runoff CTA 09/10/16 0000 Signed Impressions: Service Date/Time: Saturday, September 10, 2016 10:11 - CONCLUSION: 1. Moderate distal aortic stenosis secondary to circumferential mixed plaque. 2. No significant iliac inflow stenosis. 3. Diffuse outflow disease bilaterally, right > left. There are moderate to severe stenoses in the right SFA in the mid to distal thigh with occlusion of the right popliteal artery at the level of the knee joint. 4. Very limited runoff on the right with occlusion/critical stenosis of the distal tibioperoneal trunk and occlusion of the anterior tibial artery at the ankle. Therefore, there is no continuous single in line flow on the right. 5. Limited three-vessel runoff on the left. 6. Punctate obstructing left inferior pole renal calyceal calculus. Dat Barlow MD Foot X-Ray 09/09/16 0000 Signed Impressions: Service Date/Time: Friday, September 09, 2016 13:02 - CONCLUSION: 1. Soft tissue swelling of the lateral right foot with small ocular subcutaneous air. Findings most characteristic of a cellulitis, possibly with a gas producing organism. No acute bony abnormality. Joe Jaime MD Chest X-Ray [id number]/08/[id number] Signed Impressions: Service Date/Time: Thursday, September 08, 2016 21:59 - CONCLUSION: No acute disease. Henri Thomas MD Foot MRI 09/08/16 0000 Signed Impressions: Service Date/Time: Thursday, September 08, 2016 23:35 - CONCLUSION: Soft tissue inflammation is around the fifth MTP joint. I don't see any evidence of marrow replacement to confirm osteomyelitis. No evidence of acute fracture or tendinous retraction. Plain film would be helpful to evaluate for foreign body and osteolysis. Claudio Colunga MD Objective Remarks GENERAL: Patient in no acute distress. HEENT: PERRLA, EOMI. No scleral icterus or conjunctival pallor. No lid lag or facial droop. CARDIOVASCULAR: Regular rate and rhythm. No obvious murmurs to auscultation. No chest tenderness to palpation. RESPIRATORY: No obvious rhonchi or wheezing. Clear to auscultation. Breath sounds equal bilaterally. GASTROINTESTINAL: Abdomen soft, non-tender, nondistended. BS normal. MUSCULOSKELETAL: Right foot w/ necrotic wound 5th toe lateral aspect and plantar aspect. NEUROLOGICAL: Awake, alert and oriented x4. No focal neurologic deficits. Moving both upper and lower extremities spontaneously. A/P Problem List: (1) Sepsis ICD Code: A41.9 Status: Acute (2) Right foot infection ICD Code: L08.9 Status: Acute (3) Dehydration ICD Code: E86.0 Status: Acute (4) HTN (hypertension) ICD Code: I10 Status: Acute (5) DM (diabetes mellitus) ICD Code: E11.9 Status: Acute Assessment and Plan 51-year-old male admitted with 1. Sepsis: HR 124, Temp 101.6, WBC normal, elevated neutrophil count, Source- Right Foot Infection. S/p Blood Cult, Vanc/Zosyn in ER. Follow up cultures, continue IV Abx. No growth so far. 2. Right Foot gangrene/cellulitis/ischemia: ongoing right foot infection x5 days, Foot MRI w/ no evidence of osteomyelitis. Podiatry and vascular surgery following. Plan for endovascular intervention today per vascular surgery. 3. HTN: BP 170's on arrival, remains elevated in the [id number] systolic. Started on lisinopril. Increase to 10 mg daily. Anxiety likely contributing. Add Ativan as needed. 4. DM: Uncontrolled, secondary to Non-Compliance. Sliding scale w/ Accu- Cheks. Hemoglobin A1c 11.3. Patient counseled regarding the need to be compliant. Continue Levemir 5 units twice a day. Sliding scale insulin with Accu-Cheks. 6. DVT Prophylaxis: Heparin sq Problem Qualifiers (1) Sepsis: Qualified Code: A41.9 - Sepsis, due to unspecified organism Jolie Islas MD Sep 10, 2016 17:06
[2016-09-10] MEDS ORDERED: LABETALOL HCL 100 MG/20 ML VIAL ONE (17:12)
[2016-09-10] MEDS ORDERED: CLOPIDOGREL 75 MG TAB ONE (18:05)
--- NOTE | 2016-09-10 18:27 | HHI.PR ---
Immediate Post Op Note Procedure Date: Sep 10, 2016 Pre Op Diagnosis: (1) Right foot infection Post Op Diagnosis: (1) Right foot infection Surgeon: Merritt Rashid Yarder Operator(s): SABRINA Procedure: recanalization right popliteal artery with DCB. drug coated stent of right SFA for high grade stenosis Findings: right SFA with high grade stenosis and right popliteal artery with EDUCATION INSTRUCTOR. Additional Information: NA Complications: None Specimen(s) removed: NA Estimated blood loss: Minimal Anesthesia: Conscious Sedation Drains: None Fluids: one liter IVF Tourniquet time (min at mmHg) NA Patient to: PACU Patient Condition: Good Implant/Devices: SEE IMPLANT LOG (if applicable) Date/Time of Procedure: SEE SURGICAL CARE RECORD Merritt Rashid DO Sep 10, 2016 18:27
--- NOTE | 2016-09-10 18:30 | PD.VS.PN ---
Subjective POD #: 0 Procedure(s): Recanalization of right popliteal artery Balloon angioplasty and selective stenting right SFA Objective Vitals/I&O Date Time Temp Pulse Resp B/P Pulse Ox O2 Delivery O2 Flow Rate FiO2 09/10/16 16:30 97.9 96 18 200/100 99 09/10/16 15:00 90 09/10/16 12:00 97.9 96 18 190/100 99 09/10/16 08:16 99 09/10/16 08:00 97.9 106 18 191/91 99 09/10/16 08:00 Room Air 09/10/16 04:28 98.0 90 16 187/91 98 09/10/16 04:00 Room Air 09/10/16 00:07 98.3 85 16 188/93 98 09/10/16 00:00 Room Air 09/09/16 20:25 98.5 93 16 179/89 99 170/90 09/09/16 20:00 Room Air 09/09/16 20:00 110 09/10/16 09/10/16 09/10/16 07:00 15:00 23:00 Intake Total 2736 ml 640 ml Balance 2736 ml 640 ml Pulses: Bilateral femoral pulses palpable. Bilateral PT and DP with strong multiphasic signals. Laboratory Laboratory Tests Test 09/10/16 06:00 White Blood Count 7.9 Red Blood Count 4.64 Hemoglobin 13.4 Hematocrit 39.3 Mean Corpuscular Volume 84.7 Mean Corpuscular Hemoglobin 28.8 Mean Corpuscular Hemoglobin 34.0 Concent Red Cell Distribution Width 12.7 Platelet Count 257 Mean Platelet Volume 9.2 Neutrophils (%) (Auto) 75.4 Lymphocytes (%) (Auto) 12.8 Monocytes (%) (Auto) 9.7 Eosinophils (%) (Auto) 1.6 Basophils (%) (Auto) 0.5 Neutrophils # (Auto) 6.0 Lymphocytes # (Auto) 1.0 Monocytes # (Auto) 0.8 Eosinophils # (Auto) 0.1 Basophils # (Auto) 0.0 CBC Comment DIFF FINAL Differential Comment Sodium Level 139 Potassium Level 3.5 Chloride Level 107 Carbon Dioxide Level 25.8 Anion Gap 6 Blood Urea Nitrogen 9 Creatinine 0.62 Estimat Glomerular Filtration 136 Rate Random Glucose 191 Calcium Level 8.4 Total Bilirubin 0.4 Aspartate Amino Transf 14 (AST/SGOT) Alanine Aminotransferase 19 (ALT/SGPT) Alkaline Phosphatase 150 Total Protein 6.6 Albumin 2.6 Date/Time Procedure Status Source Growth 09/08/16 22:25 Aerobic Blood Culture - Preliminary Resulted Blood Peripheral NO GROWTH IN 2 DAYS 09/08/16 22:25 Anaerobic Blood Culture - Preliminary Resulted Blood Peripheral NO GROWTH IN 2 DAYS Assessment and Plan Assessment: (1) Diabetic foot Status: Acute (2) Dry gangrene Status: Acute Plan 51 year old with diabetic foot ulcer with cellulitis and gangrenous changes of the right lower extremity. Patient underwent endovascular revascularization of right lower extremity. Should be started on plavix. transfer to [facility] after stabilized in DOCU. Merritt Rashid DO, Merritt Miller DO Sep 10, 2016 18:30
[2016-09-10] MEDS: amLODIPine BESYLATE 5 MG TAB PO SCH (18:46)
--- NOTE | 2016-09-10 18:51 | PD.POD ---
Subjective Remarks Patient not in room SP Vascular procedure Past Med/Surg/Social History Social History Smoking Status: Former Smoker Objective Vital Signs Vital Signs Date Time Temp Pulse Resp B/P Pulse Ox O2 Delivery O2 Flow Rate FiO2 09/10/16 16:30 97.9 96 18 200/100 99 09/10/16 15:00 90 09/10/16 12:00 97.9 96 18 190/100 99 09/10/16 08:16 99 09/10/16 08:00 97.9 106 18 191/91 99 09/10/16 08:00 Room Air 09/10/16 04:28 98.0 90 16 187/91 98 09/10/16 04:00 Room Air 09/10/16 00:07 98.3 85 16 188/93 98 09/10/16 00:00 Room Air 09/09/16 20:25 98.5 93 16 179/89 99 170/90 09/09/16 20:00 Room Air 09/09/16 20:00 110 Coded Allergies: Ampicillin (Verified Allergy, Unknown, 09/08/16) Assessment & Plan A/P Right lateral foot wound eschar infection. Reviewed case with Vascular, received ok to proceed with debridement of infected tissue. Sign off to Dr Grimm who will assume care in AM and proceed with surgery Miguelangel Hart DPM Sep 10, 2016 18:51
[2016-09-10] MEDS ORDERED: LACTATED RINGER'S 1000 ML INJ IV SCH (20:30)
[2016-09-10] MEDS ORDERED: POTASSIUM PHOSPHATE 21 MMOL/NS 250 ML IV PRN ×2 (20:30)
[2016-09-10] MEDS ORDERED: POTASSIUM CHLOR 20 MEQ 100 ML x 2 BAGS IV PRN (20:30)
[2016-09-10] MEDS ORDERED: POTASSIUM CHLOR 20 MEQ/100 ML x 1 BAG IV PRN (20:30)
[2016-09-10] MEDS ORDERED: ONDANSETRON HCL 4 MG/2 ML VIAL IV PUSH PRN (20:30)
[2016-09-10] MEDS ORDERED: MAGNESIUM SULFATE 1 GM/100 ML IV PRN (20:30)
[2016-09-10] MEDS: ACETAMINOPHEN/HYDROcodone 325 MG/5 MG TAB PO PRN (21:46)
[2016-09-11] VITALS (27 sets, daily range): BP systolic 124–190; BP diastolic 76–100; PULSE 85–117; RESP 16–18; TEMP 97.6–98.6; O2SAT 98–100
[2016-09-11] MEDS ORDERED: CHLORHEXIDINE GLUCONATE 2 % 1 PACK (2 CLOTHS) TOPICAL PRN (00:30)
[2016-09-11] MEDS ORDERED: SODIUM CHLORID 0.9% 500 ML IV PRN (00:30)
[2016-09-11] MEDS ORDERED: LACTATED RINGER'S 1000 ML IV PRN (00:30)
[2016-09-11] MEDS ORDERED: POVIDONE IODINE 5% (ANTISEPSIS KIT) 4 APPLICATIONS EACH NARE PRN (00:30)
[2016-09-11] MEDS: INSULIN ASPART SUPPLEMENTAL SCALE SQ SCH ×5 (00:41→21:31)
[2016-09-11] MEDS: SODIUM CHLOR 0.9% 1000 ML INJ 1,000 ML IV SCH ×2 (01:52→11:52)
[2016-09-11 04:35] LABS: MEAN CELL VOLUME 85.4 FL (80.0-100.0); MEAN CORPUSCULAR HEMOGLOBIN 28.6 PG (27.0-34.0); MEAN CORPUSCULAR HGB CONC 33.5 % (32.0-36.0); PLATELET COUNT 255 TH/MM3 (150-450); RED BLOOD COUNT 4.68 MIL/MM3 (4.50-5.90); RED CELL DISTRIBUTION WIDTH 12.9 % (11.6-17.2); REVIEW FLAG FINAL; WHITE BLOOD COUNT 7.2 TH/MM3 (4.0-11.0)
[2016-09-11 05:02] LABS: BICARBONATE 27.2 MEQ/L (21.0-32.0); POTASSIUM 3.5 MEQ/L (3.5-5.1)
[2016-09-11] MEDS: hydrALAZINE HCL 20 MG/ML VIAL IV PUSH PRN ×3 (05:19→23:01)
--- NOTE | 2016-09-11 06:13 | MA ---
cc: DOMO JUNG DATE OF PROCEDURE 09/10/2016 PREOPERATIVE DIAGNOSIS Critical limb ischemia, diabetic foot ulcer with gangrenous changes right lower extremity. POSTOPERATIVE DIAGNOSIS Critical limb ischemia, diabetic foot ulcer with gangrenous changes right lower extremity. PROCEDURE 1. Selective right lower extremity arteriogram. 2. Balloon angioplasty with drug-coated balloon right popliteal artery. This was a Medtronic 5 x 40 drug-coated balloon. 3. Balloon angioplasty of a right superficial femoral artery with elastic recoil and subsequent Zilver drug-eluting stent by Cook in the right superficial femoral artery. This was a 6-mm x 40-mm drug-coated stent. 4. AngioSeal left common femoral artery. SURGEON Rachid, DO IV FLUIDS Approximately a 1 liter. ESTIMATED BLOOD LOSS Minimal. URINE OUTPUT Not calculated. COMPLICATIONS None. DISPOSITION To PACU. PROCEDURE The patient's bilateral groins were prepped and draped in sterile fashion after being under moderate sedation. I got access to the left common femoral artery using duplex ultrasound. I made sure that my needle went through the left common femoral artery and exchanged using Seldinger technique for a 5-Djiboutian sheath. I then advanced an Omni flush catheter over a stiff angled Glidewire in the abdominal aorta and I selected out the right lower extremity common femoral artery with a stiff angled Glidewire. I shot a selective right lower extremity arteriogram. My findings were that the right common femoral and profunda femoral arteries were widely patent and the right superficial femoral artery was patent. There was some mild disease along its length but there was a critical stenosis in the upper to middle right SFA; it was a short segment. 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 The patient's anterior tibial artery and tibioperoneal arteries appeared to be patent. There was some disease at the origin of the tibioperoneal trunk. The patient did have a blood flow across the level of the posterior tibial artery as the main runoff but also did have blood flow through the anterior tibial artery to the dorsalis pedis, although this blood flow was less brisk. Based on these findings, we heparinized the patient to an ACT of greater than 200 after exchanging for a 6-Djiboutian 45-cm Destination sheath. I used a Quick-Cross catheter and stiff angled Glidewire to cross the lesion. After I crossed and rechanneled the right popliteal artery, I made sure I had luminal access. I exchanged for a Storq wire into the anterior tibial artery and then performed balloon angioplasty of the right popliteal artery with a 4-mm x 6-cm balloon and then subsequently with a 5-mm x 4-cm drug-eluting balloon behind the right knee. Afterwards there was no residual recoil and there was patent flow through the popliteal artery and through the tibioperoneal trunk and anterior tibial artery preserved. It should be noted that there was more brisk flow after this. The patient had a had a right SFA lesion that was treated with balloon angioplasty with a 6-mm x 4-cm balloon. It was with no waisting but still residual stenosis which I suspect is recoil. Based on this I used a 6-mm x 4-cm Zilver PTX drug-coated stent and then performed balloon angioplasty after the stent was deployed. It should be noted that the blood flow was more brisk after this and my completion angio showed that there was no residual stenosis at this SFA lesion. The patient did have good blood flow across the posterior tibial artery in the ankle and the anterior tibial giving rise to dorsalis pedis. It should be noted that the distal vasculature of the foot was somewhat diminutive. At the end of the procedure I made sure that my sheath in the left groin was above the takeoff of the profunda and superficial femoral artery and I exchanged for a 6-Djiboutian AngioSeal. At the end of the procedure I applied pressure over the left groin. There was no hematoma. IN SUMMARY 1. The patient had rechanneling of the right popliteal artery with drug-coated balloon. 2. The patient had balloon angioplasty and selective stenting of the right superficial femoral artery for a high-grade stenosis. DO ASHWINI Stephens/AMOS /6:14 PM /5:58 AM
[2016-09-11] MEDS ORDERED: LIDOCAINE HCL 2% 50 ML VIAL ONE (07:12)
[2016-09-11] MEDS ORDERED: BUPIVACAINE HCL PF 0.5% 30 ML VIAL ONE (07:12)
[2016-09-11] MEDS ORDERED: PROPOFOL 200 MG/20 ML AMP IV ONE (07:43)
[2016-09-11] MEDS ORDERED: MIDAZOLAM HCL 2 MG/2 ML VIAL ONE ×2 (08:00→09:30)
[2016-09-11] MEDS ORDERED: GENTAMICIN SULFATE 80 MG/2 ML VIAL ONE (08:17)
[2016-09-11] MEDS: DOCUSATE SODIUM 50 MG/SENNA 8.6 MG TAB PO SCH ×2 (09:00→21:00)
--- NOTE | 2016-09-11 09:32 | HHI.PR ---
Immediate Post Op Note Procedure Date: Sep 11, 2016 Pre Op Diagnosis: Infection R foot, necrotic Post Op Diagnosis: same Surgeon: Jesus Grimm DPM Staffing Executive(s): Staff Procedure: Partial 5th ray amputation R foot with partial closure and wound vac Findings: Consistent with diagnosis. Necrotic tissue to dorsal and lateral 5th metatarsal midshaft and met head areas with minimal purulence noted. Healthy appearing tissue noted upon removal of necrotic tissue. Bone of 5th metatarsal resected just distal to 5th met base area and partial 5th ray amputated. No pockets of purulence noted. Irrigation with 3L NS with gentamicin. Partial closure with 2- 0 and 3-0 nylon, followed by wound vac application, set at 125mmHg continuous setting, T/Th/Sat vac dressing changes ordered. Will monitor tissues to assess viability in the coming days. Nonweightbearing R foot Additional Information: n/a Complications: none Specimen(s) removed: 1. partial R 5th ray to pathology 2. Culture R foot, prior to wound vac dressing application Estimated blood loss: 20mL Anesthesia: MAC, Local (10mL 1% lidocaine plain) Drains: Other (wound vac R foot) IVF Tourniquet time (min at mmHg) n/a Patient to: PACU Patient Condition: Good Date/Time of Procedure: SEE SURGICAL CARE RECORD Jesus Grimm DPM Sep 11, 2016 09:32
[2016-09-11] MEDS ORDERED: DO NOT ADM ANY ANTICOAGULANT DRUGS PRN (10:00)
--- NOTE | 2016-09-11 10:13 | RADRPT ---
EXAM DATE/TIME: 09/11/2016 09:51 [facility] COMPARISON: No previous studies available for comparison. INDICATIONS : Post-op right foot. MEDICAL HISTORY : Diabetes mellitus type II. Renal calculi. SURGICAL HISTORY : None. ENCOUNTER: Initial ACUITY: 1 day PAIN SCORE: 0/10 LOCATION: Right Foot. FINDINGS: The patient is status post amputation of the fifth digit distal to the base of the fifth metatarsal. Associated soft tissue defect with drain in place and bandaging. A small amount of soft tissue emphys lyndon is present. CONCLUSION: Status post fifth digit amputation as described above. Quang Dave MD on September 11, 2016 at 10:10 Board Certified Radiologist. This report was verified electronically.
[2016-09-11] MEDS: amLODIPine BESYLATE 5 MG TAB PO SCH (10:15)
[2016-09-11] MEDS: HEPARIN SODIUM - SQ 10,000 UNITS/ML VIAL SQ SCH ×2 (10:15→21:30)
[2016-09-11] MEDS: LISINOPRIL 10 MG TAB PO SCH (10:15)
[2016-09-11] MEDS: SODIUM CHLORIDE 0.9% FLUSH 10 ML FLUSH IV FLUSH SCH ×2 (10:16→21:36)
[2016-09-11] MEDS: CLOPIDOGREL 75 MG TAB PO SCH (10:16)
[2016-09-11] MEDS: CEFEPIME INJ 2,000 MG in SODIUM CHLORIDE 0.9% INJ 100 ML IV SCH ×2 (10:17→21:36)
[2016-09-11] MEDS: INSULIN DETEMIR 100 UNITS/ML VIAL SQ SCH ×2 (10:19→21:00)
--- NOTE | 2016-09-11 10:25 | PD.VS.PN ---
Subjective POD #: 1 Procedure(s): Recanalization of right popliteal artery Balloon angioplasty and selective stenting right SFA Subjective/Hospital Course patient status post right foot surgery. Without complaints. Objective Vitals/I&O right foot with wound vac in place with serosang blood in wound vac container Bilateral DP and PT triphasic. Left groin with dressing intact. Date Time Temp Pulse Resp B/P Pulse Ox O2 Delivery O2 Flow Rate FiO2 09/11/16 09:58 98.4 95 17 123/68 98 Room Air 09/11/16 09:45 94 16 115/61 98 Room Air 09/11/16 09:30 95 15 102/62 98 Room Air 09/11/16 09:24 98.4 93 15 94/62 98 Room Air 09/11/16 07:01 111 09/11/16 06:00 102 09/11/16 06:00 102 160/92 09/11/16 05:00 98 09/11/16 04:00 103 09/11/16 04:00 98.2 103 16 190/100 98 09/11/16 03:00 85 09/11/16 02:00 85 09/11/16 01:00 92 09/11/16 00:00 Room Air 09/11/16 00:00 98.0 103 18 124/76 100 09/11/16 00:00 102 09/10/16 23:00 106 09/10/16 22:00 100 09/10/16 21:00 106 09/10/16 20:00 74 09/10/16 20:00 98.0 97 20 198/116 100 09/10/16 20:00 Room Air 09/10/16 16:30 97.9 96 18 200/100 99 09/10/16 15:00 90 09/10/16 12:00 97.9 96 18 190/100 99 09/11/16 09/11/16 09/11/16 07:00 15:00 23:00 Intake Total 1705 ml 350 ml Output Total 1075 ml Balance 630 ml 350 ml Laboratory Laboratory Tests Test 09/11/16 03:30 White Blood Count 7.2 Red Blood Count 4.68 Hemoglobin 13.4 Hematocrit 40.0 Mean Corpuscular Volume 85.4 Mean Corpuscular Hemoglobin 28.6 Mean Corpuscular Hemoglobin 33.5 Concent Red Cell Distribution Width 12.9 Platelet Count 255 Mean Platelet Volume 8.7 Sodium Level 140 Potassium Level 3.5 Chloride Level 105 Carbon Dioxide Level 27.2 Anion Gap 8 Blood Urea Nitrogen 13 Creatinine 0.73 Estimat Glomerular Filtration 112 Rate Random Glucose 206 Calcium Level 8.7 Date/Time Procedure Status Source Growth 09/08/16 22:25 Aerobic Blood Culture - Preliminary Resulted Blood Peripheral NO GROWTH IN 2 DAYS 09/08/16 22:25 Anaerobic Blood Culture - Preliminary Resulted Blood Peripheral NO GROWTH IN 2 DAYS Assessment and Plan Assessment: (1) Diabetic foot Status: Acute (2) Dry gangrene Status: Acute Plan 51 year old with diabetic foot ulcer with cellulitis and gangrenous changes of the right lower extremity. Patient underwent endovascular revascularization of right lower extremity. Should be maintained on plavix. Will continue to follow. If Discharged follow up in one week in office. Merritt Rashid DO, Merritt Miller DO Sep 11, 2016 10:25
--- NOTE | 2016-09-11 10:26 | HHI.PR ---
Subjective Remarks In bed. No fever or chills. There is drainage in the wound vac. No swelling of his right leg. R Leg is wrapped., c/d/i. No chest pain , sob, n/v/d/c. Says she has no pain at this time. Objective Vitals Vital Signs Date Time Temp Pulse Resp B/P Pulse Ox O2 Delivery O2 Flow Rate FiO2 09/11/16 09:58 98.4 95 17 123/68 98 Room Air 09/11/16 09:45 94 16 115/61 98 Room Air 09/11/16 09:30 95 15 102/62 98 Room Air 09/11/16 09:24 98.4 93 15 94/62 98 Room Air 09/11/16 07:01 111 09/11/16 06:00 102 09/11/16 06:00 102 160/92 09/11/16 05:00 98 09/11/16 04:00 103 09/11/16 04:00 98.2 103 16 190/100 98 09/11/16 03:00 85 09/11/16 02:00 85 09/11/16 01:00 92 09/11/16 00:00 Room Air 09/11/16 00:00 98.0 103 18 124/76 100 09/11/16 00:00 102 09/10/16 23:00 106 09/10/16 22:00 100 09/10/16 21:00 106 09/10/16 20:00 74 09/10/16 20:00 98.0 97 20 198/116 100 09/10/16 20:00 Room Air 09/10/16 16:30 97.9 96 18 200/100 99 09/10/16 15:00 90 09/10/16 12:00 97.9 96 18 190/100 99 I/O 09/10/16 09/10/16 09/10/16 09/11/16 09/11/16 09/11/16 07:00 15:00 23:00 07:00 15:00 23:00 Intake Total 2736 ml 640 ml 1705 ml 350 ml Output Total 1075 ml Balance 2736 ml 640 ml 630 ml 350 ml Intake Oral 480 ml 240 ml 480 ml IV Total 2256 ml 400 ml 1225 ml 50 ml Other 300 ml Output Urine Total 1075 ml # Voids 6 10 # Bowel Movements 0 Result Diagram: 7/4/17 0330 09/11/16 0330 Objective Remarks GENERAL: Patient in no acute distress. HEENT: PERRLA, EOMI. No scleral icterus or conjunctival pallor. No lid lag or facial droop. CARDIOVASCULAR: Regular rate and rhythm. No obvious murmurs to auscultation. No chest tenderness to palpation. RESPIRATORY: No obvious rhonchi or wheezing. Clear to auscultation. Breath sounds equal bilaterally. GASTROINTESTINAL: Abdomen soft, non-tender, nondistended. BS normal. MUSCULOSKELETAL: Right foot with wound vac in place, wrapped, dressing c/d/i. No edema or erythema noted. NEUROLOGICAL: Awake, alert and oriented x4. No focal neurologic deficits. Moving both upper and lower extremities. Procedures Right SFA with high grade stenosis and right popliteal artery with CHIROPRACTOR SOLE PRACTITIONER s/p recanalization right popliteal artery with DCB. drug coated stent of right SFA for high grade stenosis by Dr Rachid almodovar surgeon on 09/10/16 Infection R foot, necrotic s/p Partial 5th ray amputation R foot with partial closure and wound vac 09/11/[address] Coleman podiatry A/P Problem List: (1) Sepsis ICD Code: A41.9 Status: Acute (2) Right foot infection ICD Code: L08.9 Status: Acute (3) Dehydration ICD Code: E86.0 Status: Acute (4) HTN (hypertension) ICD Code: I10 Status: Acute (5) DM (diabetes mellitus) ICD Code: E11.9 Status: Acute Assessment and Plan 51-year-old male admitted with: Sepsis: HR 124, Temp 101.6, WBC normal, elevated neutrophil count, Source- Right Foot Infection. S/p Blood Cult, Vanc/Zosyn in ER. Follow up cultures, continue IV Abx. No growth so far. Right Foot gangrene/cellulitis/ischemia: ongoing right foot infection. Foot MRI w/ no evidence of osteomyelitis. Podiatry and vascular surgery following. Plan for endovascular intervention today per vascular surgery Right SFA with high grade stenosis and right popliteal artery with CHIROPRACTOR SOLE PRACTITIONER s/p recanalization right popliteal artery with DCB. drug coated stent of right SFA for high grade stenosis by Dr Rachid almodovar surgeon on 09/10/16 Infection R foot, necrotic s/p Partial 5th ray amputation R foot with partial closure and wound vac 09/11/[address] Coleman podiatry HTN: BP 170's on arrival, remains elevated in the [id number] systolic. Started on lisinopril. Increase to 10 mg daily. Anxiety likely contributing. Add Ativan as needed. DM2: Uncontrolled, secondary to Non-Compliance. Sliding scale w/ Accu-Cheks. Hemoglobin A1c 11.3. Patient counseled regarding the need to be compliant. Continue Levemir 5 units twice a day. Sliding scale insulin with Accu-Cheks. DVT Prophylaxis: Heparin sq Problem Qualifiers (1) Sepsis: Qualified Code: A41.9 - Sepsis, due to unspecified organism Christina Sandoval MD Sep 11, 2016 10:26
[2016-09-11] MEDS: VANCOMYCIN INJ 1,250 MG in SODIUM CHLOR 0.9% 250 ML INJ 250 ML IV SCH (13:00)
--- NOTE | 2016-09-11 20:44 | MP ---
cc: JEUSS GRIDER MARTA DATE OF SURGERY 09/11/16 1965 The patient presented to the emergency department with infection to the lateral aspect of the right foot. He was evaluated and found to have necrotic tissue with gas in the superficial layers to the central fifth metatarsal mid shaft area and metatarsal head areas with some erythema surrounding these tissues. Discussed with the patient that his circulation was terrible. He underwent a vascular procedure with Dr. Rashid yesterday after he was evaluated and discussed with the patient that he would require the necrotic tissue to be removed and likely a partial fifth ray amputation in order to achieve closure of the skin due to the extensive necrotic tissue. The patient consented to the procedure. He was seen in preop holding by myself, nursing staff and anesthesia where the correct patient, side and site were all confirmed to be correct in the right foot. He was then taken back to surgical suite, placed in supine position where the right foot was prepped and draped in normal sterile fashion followed by time-out as per hospital protocol. Attention was directed to the right lateral foot where there was noted to be necrotic tissue to the dorsal and lateral aspects of fifth metatarsal mid shaft and metatarsal head areas with minimal purulence noted in the surrounding areas. There was healthy appearing tissue noted upon removal of all this necrotic tissue around the bone of the fifth metatarsal and toe with minimal bleeding. However, it was bleeding some. The fat appeared to be healthy and not necrotic. There was no foul odor noted. Upon removal of the superficial necrotic tissue, the bone was resected at the fifth metatarsal base area just distal to the fifth metatarsal base where the base was left intact to preserve tendinous attachments and a partial fifth ray was amputated. There were no pockets of purulence noted in the surrounding tissues. The area was irrigated with 3 liters normal sterile saline plus gentamicin followed by partial closure with 2-0 and 3-0 nylon followed by a small granufoam wound VAC application to the residual central wound area that was unable to be completely closed and set at 125 mmHg continuous setting with Saturday, and Saturday wound VAC dressing changed ordered. He tolerated procedure and anesthesia well and was taken back to the PACU with vital signs stable and vascular status intact to the remainder of the right foot. He will be monitored in the coming days for assessing viability of the tissue to determine if any further surgery will be required. He will be non-weightbearing to the right foot and continue IV antibiotics. Cultures were taken of the right foot prior to the wound VAC dressing application. SHORT OPERATIVE NOTE SURGEON Oksana Grider MD [employer] Staff PREOPERATIVE DIAGNOSIS Infection right foot. POSTOPERATIVE DIAGNOSIS Infection right foot. PROCEDURE Partial fifth ray amputation right foot with partial closure and wound VAC application. ANESTHESIA MAC plus 10 mL of 1% lidocaine plain ESTIMATED BLOOD LOSS 20 mL COMPLICATIONS None. CONDITION Stable to PACU PATHOLOGY 1. Partial right fifth ray to pathology 2. Culture right foot prior to wound VAC dressing application. DISPOSITION Non-weightbearing right foot. We will assess the viability of tissues in the coming days to determine if further procedures are required. Jesus SHAW/ /9:47 AM /8:35 PM
[2016-09-11] MEDS: LORazepam 1 MG TAB PO PRN (23:11)
[2016-09-12] VITALS (27 sets, daily range): BP systolic 144–180; BP diastolic 80–102; PULSE 92–120; RESP 16–18; TEMP 98.2–98.4; O2SAT 98–99
[2016-09-12] MEDS: VANCOMYCIN INJ 1,250 MG in SODIUM CHLOR 0.9% 250 ML INJ 250 ML IV SCH ×2 (01:54→18:26)
[2016-09-12] MEDS: INSULIN ASPART SUPPLEMENTAL SCALE SQ SCH ×4 (06:36→22:32)
[2016-09-12] MEDS: CEFEPIME INJ 2,000 MG in SODIUM CHLORIDE 0.9% INJ 100 ML IV SCH ×2 (08:06→22:28)
[2016-09-12] MEDS: HEPARIN SODIUM - SQ 10,000 UNITS/ML VIAL SQ SCH ×2 (08:07→22:26)
[2016-09-12] MEDS: LISINOPRIL 10 MG TAB PO SCH (08:07)
[2016-09-12] MEDS: CLOPIDOGREL 75 MG TAB PO SCH (08:07)
[2016-09-12] MEDS: amLODIPine BESYLATE 5 MG TAB PO SCH (08:07)
[2016-09-12] MEDS: DOCUSATE SODIUM 50 MG/SENNA 8.6 MG TAB PO SCH ×2 (08:07→22:28)
[2016-09-12] MEDS: SODIUM CHLORIDE 0.9% FLUSH 10 ML FLUSH IV FLUSH SCH ×2 (08:08→22:25)
[2016-09-12] MEDS: INSULIN DETEMIR 100 UNITS/ML VIAL SQ SCH ×2 (08:09→21:00)
[2016-09-12] MEDS ORDERED: PHARMACY ORDERED LAB ONE (12:45)
--- NOTE | 2016-09-12 17:35 | HHI.PR ---
Subjective Remarks Patient seen this afternoon around 2 PM. Says he is feeling all right. Denies any chest pain or shortness of breath. No nausea or vomiting Reports that pain is controlled. Patient reports he had a bowel movement recently. Objective Vital Signs Date Time Temp Pulse Resp B/P Pulse Ox O2 Delivery O2 Flow Rate FiO2 09/12/16 14:00 98 09/12/16 13:00 106 09/12/16 12:00 120 09/12/16 11:01 99 Room Air 09/12/16 11:01 98.4 119 18 167/83 99 09/12/16 11:00 112 09/12/16 10:00 102 09/12/16 09:00 98 09/12/16 08:01 98 Room Air 09/12/16 08:01 98.3 98 18 153/92 98 09/12/16 08:00 106 09/12/16 07:01 92 09/12/16 03:28 100 Room Air 09/12/16 03:15 98.2 102 16 163/86 99 09/12/16 03:00 102 09/12/16 02:00 116 09/12/16 01:00 116 09/12/16 00:00 116 09/11/16 23:10 98.2 106 18 161/82 100 09/11/16 23:04 100 Room Air 09/11/16 23:00 117 09/11/16 22:50 106 182/99 09/11/16 22:00 116 09/11/16 21:00 116 09/11/16 20:00 116 09/11/16 19:20 100 Room Air 09/11/16 19:20 98.2 104 18 160/88 100 09/11/16 19:00 117 09/11/16 18:01 116 I/O 09/11/16 09/11/16 09/11/16 09/12/16 09/12/16 09/12/16 07:00 15:00 23:00 07:00 15:00 23:00 Intake Total 1705 ml 350 ml 1952 ml 240 ml Output Total 1075 ml 525 ml 450 ml Balance 630 ml 350 ml 1427 ml -210 ml Intake Oral 480 ml 702 ml 240 ml IV Total 1225 ml 50 ml 1250 ml Other 300 ml Output Urine Total 1075 ml 525 ml 450 ml # Voids 2 # Bowel Movements 0 Result Diagram: 7/4/17 0330 09/11/16 0330 Objective Remarks GENERAL: . Appears comfortable. Alert and oriented 3. SKIN: Warm and dry. HEAD: Normocephalic. EYES: No scleral icterus. No injection or drainage. NECK: Supple, trachea midline. No JVD. CARDIOVASCULAR: Regular rate and rhythm without murmurs, gallops, or rubs. RESPIRATORY: Breath sounds equal bilaterally. No accessory muscle use. GASTROINTESTINAL: Abdomen soft, non-tender, nondistended. MUSCULOSKELETAL: No cyanosis, or edema. right fifth ray amputation with wound VAC in place. BACK: Nontender without obvious deformity. No CVA tenderness. A/P Assessment and Plan 09/12/16====== Patient continues with wound VAC to right foot. Continue cefepime and vancomycin. Follow up cultures. Diabetes. Glucose elevated. Increase Levemir //Sepsis: HR 124, Temp 101.6, WBC normal, elevated neutrophil count, Source- Right Foot Infection. S/p Blood Cult, Vanc/Zosyn in ER. Follow up cultures, continue IV Abx. No growth so far. Right Foot gangrene/cellulitis/ischemia: ongoing right foot infection. Foot MRI w/ no evidence of osteomyelitis. Podiatry and vascular surgery following. Plan for endovascular intervention today per vascular surgery Right SFA with high grade stenosis and right popliteal artery with ADMISSIONS ADVISOR s/p recanalization right popliteal artery with DCB. drug coated stent of right SFA for high grade stenosis by Dr Rashid vas surgeon on 09/10/16 Infection R foot, necrotic s/p Partial 5th ray amputation R foot with partial closure and wound vac 09/11/[address] Coleman podiatry 09/22/16-Patient continues with wound VAC to right foot. Continue cefepime and vancomycin. Follow up cultures. //HTN: BP 170's on arrival, remains elevated in the [id number] systolic. Started on lisinopril. Increase to 10 mg daily. Anxiety likely contributing. cont Ativan as needed. //DM2: Uncontrolled, secondary to Non-Compliance. Sliding scale w/ Accu- Cheks. Hemoglobin A1c 11.3. Patient counseled regarding the need to be compliant. Continue Levemir 5 units twice a day. 09/12 -Diabetes. Glucose elevated. Increase Levemir cont Sliding scale insulin with Accu-Cheks. DVT Prophylaxis: Heparin sq Discharge Planning continues with wound VAC. Patient is self-pay. Difficult discharge. Nitin Nash MD Sep 12, 2016 17:35
--- NOTE | 2016-09-12 18:38 | PD.WCN.NOT ---
Wound Consult Description: Patient seen on [facility] at request of [facility] for Wound VAC assessment on R lateral foot. Wound VAC dressing was changed yesterday.Wound VAC is alarming with blockage alert and is not holding suction. Sensi trac pad sensors are not contact with black foam. Removed Sensi trac pad and bridged granufoam to R dorsal foot from granufoam covering wound bed. Applied new Sensi trac pad over mushroom cap of granufoam to bridged granufoam on dorsal R foot.Wound VAC suctioning without leaks upon leaving patient's room. Wound VAC dressing is due to be changed tomorrow. Communicated with: AISHWARYA [facility] Recommendation: Please Vocera wound care nurse for wound VAC dressing assistance if needed. Nat Vernon [facility] Sep 12, 2016 18:38
[2016-09-12] MEDS: hydrALAZINE HCL 20 MG/ML VIAL IV PUSH PRN (22:21)
[2016-09-13] VITALS (23 sets, daily range): BP systolic 124–182; BP diastolic 63–94; PULSE 90–117; RESP 16–18; TEMP 98.4–99; O2SAT 97–99
[2016-09-13] MEDS: SODIUM CHLOR 0.9% 1000 ML INJ 1,000 ML IV SCH ×3 (03:52→21:24)
[2016-09-13] MEDS: VANCOMYCIN INJ 1,750 MG in SODIUM CHLORID 0.9% 500 ML INJ 500 ML IV SCH ×2 (05:37→17:52)
[2016-09-13] MEDS: INSULIN ASPART SUPPLEMENTAL SCALE SQ SCH ×4 (06:10→21:52)
--- NOTE | 2016-09-13 07:52 | PD.VS.PN ---
Subjective Procedure(s): Recanalization of right popliteal artery Balloon angioplasty and selective stenting right SFA Subjective/Hospital Course patient status post right foot surgery. Without complaints. Objective Vitals/I&O Date Time Temp Pulse Resp B/P Pulse Ox O2 Delivery O2 Flow Rate FiO2 09/13/16 03:20 98 Room Air 09/13/16 03:20 98.8 103 18 149/80 98 09/13/16 03:00 95 09/13/16 02:00 96 09/13/16 01:00 90 09/12/16 23:01 99 Room Air 09/12/16 23:01 98.3 97 18 144/80 99 09/12/16 23:00 103 09/12/16 22:00 102 09/12/16 21:40 98.4 99 18 180/102 98 09/12/16 21:00 96 09/12/16 20:09 99 Room Air 09/12/16 20:00 94 09/12/16 19:00 107 09/12/16 18:01 94 09/12/16 17:00 108 09/12/16 16:00 98 09/12/16 15:45 98.3 98 18 155/88 99 09/12/16 15:45 99 Room Air 09/12/16 15:00 98 09/12/16 14:00 98 09/12/16 13:00 106 09/12/16 12:00 120 09/12/16 11:01 99 Room Air 09/12/16 11:01 98.4 119 18 167/83 99 09/12/16 11:00 112 09/12/16 10:00 102 09/12/16 09:00 98 09/12/16 08:01 98 Room Air 09/12/16 08:01 98.3 98 18 153/92 98 09/12/16 08:00 106 09/13/16 09/13/16 09/13/16 07:00 15:00 23:00 Intake Total 240 ml Balance 240 ml Pulses: Palpable right PT. left groin site soft Laboratory Laboratory Tests Test 09/12/16 09/13/16 17:46 05:52 Vancomycin Level Trough 4.4 Creatinine 0.58 Estimat Glomerular Filtration 147 Rate Date/Time Procedure Status Source Growth 09/11/16 13:53 Gram Stain - Final Resulted Wound Foot 09/11/16 13:53 Wound Culture - Preliminary Resulted Wound Foot 09/11/16 13:53 Fungal Smear - Final Resulted Wound Foot NO FUNGAL ELEMENTS SEEN. 09/11/16 13:53 Fungal Culture Resulted Wound Foot Pending 09/11/16 13:53 Acid Fast Stain Received Wound Foot Pending 09/11/16 13:53 Mycobacterial Culture Received Wound Foot Pending 09/08/16 22:25 Aerobic Blood Culture - Preliminary Resulted Blood Peripheral NO GROWTH IN 4 DAYS 09/08/16 22:25 Anaerobic Blood Culture - Preliminary Resulted Blood Peripheral NO GROWTH IN 4 DAYS Assessment and Plan Assessment: (1) Diabetic foot Status: Acute (2) Dry gangrene Status: Acute Plan 51 year old with diabetic foot ulcer with cellulitis and gangrenous changes of the right lower extremity Status post right ray amputation open. Patient underwent endovascular revascularization of right lower extremity. Should be maintained on plavix. Will continue to follow. If Discharged follow up in one week in office. Merritt Rashid DO, Merritt Miller DO Sep 13, 2016 07:52
[2016-09-13] MEDS: SODIUM CHLORIDE 0.9% FLUSH 10 ML FLUSH IV FLUSH SCH ×2 (08:45→21:39)
[2016-09-13] MEDS: CLOPIDOGREL 75 MG TAB PO SCH (08:45)
[2016-09-13] MEDS: DOCUSATE SODIUM 50 MG/SENNA 8.6 MG TAB PO SCH ×2 (08:45→21:39)
[2016-09-13] MEDS: LISINOPRIL 10 MG TAB PO SCH (08:45)
[2016-09-13] MEDS: amLODIPine BESYLATE 5 MG TAB PO SCH (08:45)
[2016-09-13] MEDS: HEPARIN SODIUM - SQ 10,000 UNITS/ML VIAL SQ SCH ×2 (08:45→21:39)
[2016-09-13] MEDS: INSULIN DETEMIR 100 UNITS/ML VIAL SQ SCH ×2 (08:49→21:52)
[2016-09-13] MEDS: CEFEPIME INJ 2,000 MG in SODIUM CHLORIDE 0.9% INJ 100 ML IV SCH ×2 (08:51→21:36)
[2016-09-13] MEDS: hydrALAZINE HCL 20 MG/ML VIAL IV PUSH PRN ×2 (12:08→21:51)
--- NOTE | 2016-09-13 13:26 | HHI.PR ---
Subjective Remarks Patient seen this morning around 11 AM. Reports pain is controlled. Denies any chest pain or shortness of breath. Denies constipation. Objective Vital Signs Date Time Temp Pulse Resp B/P Pulse Ox O2 Delivery O2 Flow Rate FiO2 09/13/16 13:05 110 09/13/16 12:03 92 09/13/16 11:41 104 09/13/16 11:41 98.4 96 16 148/80 98 09/13/16 11:41 98 Room Air 09/13/16 10:04 97 09/13/16 09:01 115 09/13/16 08:00 97 Room Air 09/13/16 08:00 99 09/13/16 08:00 98.4 97 16 148/80 97 09/13/16 03:20 98 Room Air 09/13/16 03:20 98.8 103 18 149/80 98 09/13/16 03:00 95 09/13/16 02:00 96 09/13/16 01:00 90 09/12/16 23:01 99 Room Air 09/12/16 23:01 98.3 97 18 144/80 99 09/12/16 23:00 103 09/12/16 22:00 102 09/12/16 21:40 98.4 99 18 180/102 98 09/12/16 21:00 96 09/12/16 20:09 99 Room Air 09/12/16 20:00 94 09/12/16 19:00 107 09/12/16 18:01 94 09/12/16 17:00 108 09/12/16 16:00 98 09/12/16 15:45 98.3 98 18 155/88 99 09/12/16 15:45 99 Room Air 09/12/16 15:00 98 09/12/16 14:00 98 I/O 09/12/16 09/12/16 09/12/16 09/13/16 09/13/16 09/13/16 07:00 15:00 23:00 07:00 15:00 23:00 Intake Total 240 ml 790 ml 240 ml Output Total 450 ml 1025 ml Balance -210 ml -235 ml 240 ml Intake Oral 240 ml 690 ml 240 ml IV Total 100 ml Output Urine Total 450 ml 1025 ml # Voids 4 2 # Bowel Movements 1 1 Result Diagram: 09/11/16 0330 09/13/16 0552 Objective Remarks GENERAL: . Appears comfortable. Alert and oriented 3. SKIN: Warm and dry. HEAD: Normocephalic. EYES: No scleral icterus. No injection or drainage. NECK: Supple, trachea midline. No JVD. CARDIOVASCULAR: Regular rate and rhythm without murmurs, gallops, or rubs. RESPIRATORY: Breath sounds equal bilaterally. No accessory muscle use. GASTROINTESTINAL: Abdomen soft, non-tender, nondistended. MUSCULOSKELETAL: No cyanosis, or edema. right fifth ray amputation with wound VAC in place, no appreciable change from yesterday.. BACK: Nontender without obvious deformity. No CVA tenderness. A/P Assessment and Plan 09/13/16====== Patient continues with wound VAC to right fifth ray amputation site. Cultures with group B strep. We'll consult infectious disease for home antibiotics recommendations. -Discussed with case management. Possibility of needing home wound VAC. Care as per podiatry. Appreciate podiatry assistance. Diabetes. Glucose levels improved. Into new Levemir 8 units twice daily. Awaiting diabetic counselor. //Sepsis: HR 124, Temp 101.6, WBC normal, elevated neutrophil count, Source- Right Foot Infection. S/p Blood Cult, Vanc/Zosyn in ER. Follow up cultures, continue IV Abx. No growth so far. Right Foot gangrene/cellulitis/ischemia: ongoing right foot infection. Foot MRI w/ no evidence of osteomyelitis. Podiatry and vascular surgery following. Plan for endovascular intervention today per vascular surgery Right SFA with high grade stenosis and right popliteal artery with LOAN CLERK s/p recanalization right popliteal artery with DCB. drug coated stent of right SFA for high grade stenosis by Dr Rashid vas surgeon on 09/10/16 Infection R foot, necrotic s/p Partial 5th ray amputation R foot with partial closure and wound vac 09/11/[address] Coleman podiatry 09/22/16-Patient continues with wound VAC to right foot. Continue cefepime and vancomycin. Follow up cultures. //HTN: BP 170's on arrival, remains elevated in the [id number] systolic. Started on lisinopril. Increase to 10 mg daily. Anxiety likely contributing. cont Ativan as needed. //DM2: Uncontrolled, secondary to Non-Compliance. Sliding scale w/ Accu- Cheks. Hemoglobin A1c 11.3. Patient counseled regarding the need to be compliant. Continue Levemir 5 units twice a day. 09/12 -Diabetes. Glucose elevated. Increase Levemir cont Sliding scale insulin with Accu-Cheks. DVT Prophylaxis: Heparin sq Discharge Planning continues with wound VAC. Patient is self-pay. Difficult discharge. -May need home diabetic supplies. -May need wound VAC. -Discharge wound care as per podiatry. Nitin Nash MD Sep 13, 2016 13:26
[2016-09-13] MEDS: LORazepam 1 MG TAB PO PRN (15:54)
[2016-09-13] MEDS: ACETAMINOPHEN/HYDROcodone 325 MG/5 MG TAB PO PRN (21:51)
[2016-09-14] VITALS (27 sets, daily range): BP systolic 128–199; BP diastolic 71–99; PULSE 88–114; RESP 16–20; TEMP 97.6–98.4; O2SAT 96–99
[2016-09-14] MEDS: VANCOMYCIN INJ 1,750 MG in SODIUM CHLORID 0.9% 500 ML INJ 500 ML IV SCH (05:34)
[2016-09-14] MEDS: INSULIN ASPART SUPPLEMENTAL SCALE SQ SCH ×4 (05:42→21:42)
[2016-09-14] MEDS: INSULIN DETEMIR 100 UNITS/ML VIAL SQ SCH ×2 (09:00→21:42)
[2016-09-14] MEDS: SODIUM CHLORIDE 0.9% FLUSH 10 ML FLUSH IV FLUSH SCH ×2 (09:00→21:36)
[2016-09-14] MEDS: DOCUSATE SODIUM 50 MG/SENNA 8.6 MG TAB PO SCH ×2 (09:35→21:37)
[2016-09-14] MEDS: CLOPIDOGREL 75 MG TAB PO SCH (09:35)
[2016-09-14] MEDS: LISINOPRIL 10 MG TAB PO SCH (09:36)
[2016-09-14] MEDS: amLODIPine BESYLATE 5 MG TAB PO SCH (09:36)
[2016-09-14] MEDS: CEFEPIME INJ 2,000 MG in SODIUM CHLORIDE 0.9% INJ 100 ML IV SCH (09:39)
[2016-09-14] MEDS: HEPARIN SODIUM - SQ 10,000 UNITS/ML VIAL SQ SCH ×2 (09:40→21:36)
[2016-09-14] MEDS: SODIUM CHLOR 0.9% 1000 ML INJ 1,000 ML IV SCH ×2 (09:52→19:52)
--- NOTE | 2016-09-14 10:30 | PD.VS.PN ---
Subjective POD #: 4 Procedure(s): Recanalization of right popliteal artery Balloon angioplasty and selective stenting right SFA Subjective/Hospital Course Patient s/p right foot surgery. Pt sitting in chair eating breakfast without complaints Objective Vitals/I&O Date Time Temp Pulse Resp B/P Pulse Ox O2 Delivery O2 Flow Rate FiO2 09/14/16 07:00 101 09/14/16 06:00 98 09/14/16 05:00 93 09/14/16 04:00 88 09/14/16 03:30 98.4 95 16 153/83 98 09/14/16 03:00 98 09/14/16 02:00 89 09/14/16 01:00 93 09/14/16 00:00 95 09/13/16 23:45 99.0 102 16 124/63 99 09/13/16 23:00 103 09/13/16 22:28 168/89 09/13/16 22:00 100 09/13/16 21:00 102 09/13/16 20:30 98.7 107 16 180/94 99 09/13/16 20:30 99 Room Air 09/13/16 20:00 96 09/13/16 19:00 115 09/13/16 18:03 104 09/13/16 17:25 107 09/13/16 16:29 112 09/13/16 15:24 98 Room Air 09/13/16 15:24 106 09/13/16 15:24 98.7 103 16 165/87 98 09/13/16 14:02 117 09/13/16 13:05 110 09/13/16 12:03 92 09/13/16 11:41 104 09/13/16 11:41 98.4 96 16 182/92 98 09/13/16 11:41 98 Room Air 09/14/16 09/14/16 09/14/16 07:00 15:00 23:00 Intake Total 340 ml Output Total 600 ml Balance -260 ml Exam: GENERAL: Pt alert and oriented in NAD, GCS 15 SKIN: Warm and dry/ Wound vac to Right foot in place and intact BLE warm w/o motor deficits Triphasic R DP/PT heard via Doppler Laboratory Date/Time Procedure Status Source Growth 09/11/16 13:53 Gram Stain - Final Complete Wound Foot 09/11/16 13:53 Wound Culture - Final Complete Group B Beta Strep 09/11/16 13:53 Fungal Smear - Final Resulted Wound Foot NO FUNGAL ELEMENTS SEEN. 09/11/16 13:53 Fungal Culture Resulted Wound Foot Pending 09/11/16 13:53 Acid Fast Stain - Final Resulted Wound Foot NO ACID FAST BACILLI SEEN 09/11/16 13:53 Mycobacterial Culture Resulted Wound Foot Pending Assessment and Plan Assessment: (1) Diabetic foot Status: Acute (2) Dry gangrene Status: Acute Plan 51 year old with diabetic foot ulcer with cellulitis and gangrenous changes of the right lower extremity Status post right ray amputation open/endovascular revascularization of right lower extremity. Plan Continue PT Should be maintained on Plavix Raina SHEPARD [facility] [phone] Discharge Planning Will arrange for out patient follow up Raina Beard Sep 14, 2016 10:30 Raina Beard Sep 14, 2016 10:30
[2016-09-14] MEDS: hydrALAZINE HCL 20 MG/ML VIAL IV PUSH PRN (12:50)
--- NOTE | 2016-09-14 15:13 | PD.ID.CON ---
History of Present Illness Service ID Consult Requested By Dr Nash Reason for Consult DFI Primary Care Physician No Primary Care Physician Diagnoses: History of Present Illness 51-year-old diabetic male with poor compliance presented to ER 1week ago with complaint of right foot pain and swelling x4-5 days. It started as a blister on the lateral aspect of his foot which popped on its own, and has gotten progressively worse since then. Pt was febrile with Temp 101.6a nd he had leukocytosis Blood glc in 300 range He apparently developpped gangrenous changes MRI of the foot showed soft tissue inflammation around fifth MTP, no evidence of osteomyelitis. He was seen by [facility] surgeon Dr Del Cid Findings on CTA are significant right SFA disease and distal popliteal/ tibioperoneal artery disease. He uderwent Recanalization of right popliteal artery and Balloon angioplasty and selective stenting right SFA and next day underwent partial 5th ray amputation with wound VAC placement His culg grew group B strep path showed gangrenous necrosis He is afebrile, normla WBC adn denies other complaints Review of Systems Except as stated in HPI: all other systems reviewed are Neg Past Family Social History Allergies: Coded Allergies: Ampicillin (Verified Allergy, Unknown, 09/08/16) Past Medical History HTN, DM and Non-Compliance Past Surgical History Lithotripsy Active Ordered Medications Medications where reviewed in EMR Antibiotics Include: vancomycin cefepime Family History Reviewed. Noncontributory Social History Occasional alcohol. Quit tobacco 2 yrs ago; < 1/2 ppd prior. Positive for Marijuana. Physical Exam Vital Signs Vital Signs Date Time Temp Pulse Resp B/P Pulse Ox O2 Delivery O2 Flow Rate FiO2 09/14/16 12:00 170/90 09/14/16 11:00 100 09/14/16 11:00 98.1 100 20 199/99 96 09/14/16 10:00 96 09/14/16 09:00 104 09/14/16 08:00 104 09/14/16 08:00 97.6 104 20 165/81 98 09/14/16 07:00 101 09/14/16 06:00 98 09/14/16 05:00 93 09/14/16 04:00 88 09/14/16 03:30 98.4 95 16 153/83 98 09/14/16 03:00 98 09/14/16 02:00 89 09/14/16 01:00 93 09/14/16 00:00 95 09/13/16 23:45 99.0 102 16 124/63 99 09/13/16 23:00 103 09/13/16 22:28 168/89 09/13/16 22:00 100 09/13/16 21:00 102 09/13/16 20:30 98.7 107 16 180/94 99 09/13/16 20:30 99 Room Air 09/13/16 20:00 96 09/13/16 19:00 115 09/13/16 18:03 104 09/13/16 17:25 107 09/13/16 16:29 112 09/13/16 15:24 98 Room Air 09/13/16 15:24 106 09/13/16 15:24 98.7 103 16 165/87 98 Physical Exam CONSTITUTIONAL/GENERAL: This is an adequately nourished patient, in no apparent distress. TUBES/LINES/DRAINS: SKIN: No jaundice, rashes, or lesions. Ecchymoses on upper extremities. No wounds seen anteriorly. Skin temperature appropriate. Not diaphoretic. EYES: Pupils equal and round and reactive. Extraocular motions intact. No scleral icterus. No injection or drainage. Fundi not examined. ENT: Hearing grossly normal. Oral mucosae without visible erythema, exudates, masses, or lesions. NECK: Trachea midline. Supple, nontender. No palpable thyroid enlargement or nodularity. CARDIOVASCULAR: Regular rate and rhythm without murmurs, gallops, or rubs. No JVD. Peripheral pulses symmetric. RESPIRATORY/CHEST: Symmetric, unlabored respirations. Clear to auscultation. Breath sounds equal bilaterally. No wheezes, rales, or rhonchi. GASTROINTESTINAL: Abdomen soft, non-tender, nondistended. No hepato-splenomegaly , or palpable masses. No guarding. Bowel sounds present. GENITOURINARY: Without palpable bladder distension. MUSCULOSKELETAL: Extremities without clubbing, cyanosis, or edema. No mottling or clubbing. R foot with s/p 5 toe amputation, VAC in place with serosang d/c residual erythema and edma noted no ascending lympahtgitis/lymphadenitis well perfused COntralaterl foot w/o sign of vascular deficienct LYMPHATICS: No palpable cervical or supraclavicular adenopathy. NEUROLOGICAL: Awake and alert. Motor and sensory grossly within normal limits. Follows commands. Clear speech. Moves all extremities. PSYCHIATRIC: No obvious anxiety/depression. no apparent hallucinations or other psychotic thought process. Laboratory Date/Time Procedure Status Source Growth 09/11/16 13:53 Gram Stain - Final Complete Wound Foot 09/11/16 13:53 Wound Culture - Final Complete Group B Beta Strep 09/11/16 13:53 Fungal Smear - Final Resulted Wound Foot NO FUNGAL ELEMENTS SEEN. 09/11/16 13:53 Fungal Culture Resulted Wound Foot Pending 09/11/16 13:53 Acid Fast Stain - Final Resulted Wound Foot NO ACID FAST BACILLI SEEN 09/11/16 13:53 Mycobacterial Culture Resulted Wound Foot Pending Result Diagram: 09/11/16 0330 09/13/16 0552 Imaging Last Impressions Foot X-Ray 09/11/16 0000 Signed Impressions: Service Date/Time: Sunday, September 11, 2016 09:51 - CONCLUSION: Status post fifth digit amputation as described above. Quang Dave MD Lower Extremity Ultrasound 09/10/16 0000 Signed Impressions: Service Date/Time: Saturday, September 10, 2016 12:28 - CONCLUSION: 1. No sonographic evidence for lower extremity DVT. 2. Incidental note of nonspecific right inguinal adenopathy. aDt Barlow MD Aorta w/Runoff CTA 09/10/16 0000 Signed Impressions: Service Date/Time: Saturday, September 10, 2016 10:11 - CONCLUSION: 1. Moderate distal aortic stenosis secondary to circumferential mixed plaque. 2. No significant iliac inflow stenosis. 3. Diffuse outflow disease bilaterally, right > left. There are moderate to severe stenoses in the right SFA in the mid to distal thigh with occlusion of the right popliteal artery at the level of the knee joint. 4. Very limited runoff on the right with occlusion/critical stenosis of the distal tibioperoneal trunk and occlusion of the anterior tibial artery at the ankle. Therefore, there is no continuous single in line flow on the right. 5. Limited three-vessel runoff on the left. 6. Punctate obstructing left inferior pole renal calyceal calculus. Dat Barlow MD Chest X-Ray 09/08/16 1061 Signed Impressions: Service Date/Time: Thursday, September 08, 2016 21:59 - CONCLUSION: No acute disease. Henri Thomas MD Foot MRI 09/08/16 0000 Signed Impressions: Service Date/Time: Thursday, September 08, 2016 23:35 - CONCLUSION: Soft tissue inflammation is around the fifth MTP joint. I don't see any evidence of marrow replacement to confirm osteomyelitis. No evidence of acute fracture or tendinous retraction. Plain film would be helpful to evaluate for foreign body and osteolysis. Claudio Colunga MD Assessment and Plan Assessment and Plan DFI involving R 5th toe, metatarsal with gangene in the setting of PVD sp evascularisation sp 5 th ray amputaion group B streptococcus DM PVD Ampicillin self reported allergy, rash - tolerates cefepime OK dc vanco, cefepime start Rocephine anticipate 4 wks of abx Discussed Condition With Dr Saad Poole,Claudia Cedeno MD Sep 14, 2016 15:13
[2016-09-14] MEDS: cefTRIAXone INJ 2,000 MG in SODIUM CHLORIDE 0.9% INJ 100 ML IV SCH (17:19)
--- NOTE | 2016-09-14 17:25 | HHI.PR ---
Subjective Remarks Patient seen today around noon. Says he is feeling all right. Pain is controlled. Denies any chest pain or shortness of breath. Recent bowel movement Objective Vital Signs Date Time Temp Pulse Resp B/P Pulse Ox O2 Delivery O2 Flow Rate FiO2 09/14/16 12:00 170/90 09/14/16 11:00 100 09/14/16 11:00 98.1 100 20 199/99 96 09/14/16 10:00 96 09/14/16 09:00 104 09/14/16 08:00 104 09/14/16 08:00 97.6 104 20 165/81 98 09/14/16 07:00 101 09/14/16 06:00 98 09/14/16 05:00 93 09/14/16 04:00 88 09/14/16 03:30 98.4 95 16 153/83 98 09/14/16 03:00 98 09/14/16 02:00 89 09/14/16 01:00 93 09/14/16 00:00 95 09/13/16 23:45 99.0 102 16 124/63 99 09/13/16 23:00 103 09/13/16 22:28 168/89 09/13/16 22:00 100 09/13/16 21:00 102 09/13/16 20:30 98.7 107 16 180/94 99 09/13/16 20:30 99 Room Air 09/13/16 20:00 96 09/13/16 19:00 115 09/13/16 18:03 104 09/13/16 17:25 107 I/O 09/13/16 09/13/16 09/13/16 09/14/16 09/14/16 09/14/16 07:00 15:00 23:00 07:00 15:00 23:00 Intake Total 240 ml 990 ml 340 ml Output Total 1525 ml 600 ml Balance 240 ml -535 ml -260 ml Intake Oral 240 ml 840 ml 240 ml IV Total 150 ml 100 ml Output Urine Total 1525 ml 600 ml # Voids 2 # Bowel Movements 1 0 0 Result Diagram: 09/11/16 0330 09/13/16 0552 Objective Remarks GENERAL: . sitting in chair. Appears comfortable. Alert and oriented 3. SKIN: Warm and dry. HEAD: Normocephalic. EYES: No scleral icterus. No injection or drainage. NECK: Supple, trachea midline. No JVD. CARDIOVASCULAR: Regular rate and rhythm without murmurs, gallops, or rubs. RESPIRATORY: Breath sounds equal bilaterally. No accessory muscle use. GASTROINTESTINAL: Abdomen soft, non-tender, nondistended. MUSCULOSKELETAL: No cyanosis, or edema. right fifth ray amputation with wound VAC in place, again no appreciable change from yesterday.. BACK: Nontender without obvious deformity. No CVA tenderness. A/P Assessment and Plan 09/14/16====== Patient continues with wound VAC to right fifth ray amputation site. -discussed with infectious disease. Continue Rocephin. -can discharge point cleared by podiatry, and this patient has home health for IV antibiotics and wound VAC. Diabetes. Glucose levels acceptable. //Sepsis: HR 124, Temp 101.6, WBC normal, elevated neutrophil count, Source- Right Foot Infection. S/p Blood Cult, Vanc/Zosyn in ER. Follow up cultures, continue IV Abx. No growth so far. Right Foot gangrene/cellulitis/ischemia: ongoing right foot infection. Foot MRI w/ no evidence of osteomyelitis. Podiatry and vascular surgery following. Plan for endovascular intervention today per vascular surgery Right SFA with high grade stenosis and right popliteal artery with HOTEL SERVICES SALES REPRESENTATIVE s/p recanalization right popliteal artery with DCB. drug coated stent of right SFA for high grade stenosis by Dr Rashid vas surgeon on 09/10/16 Infection R foot, necrotic s/p Partial 5th ray amputation R foot with partial closure and wound vac 09/11/[address] Coleman podiatry 09/12/16-Patient continues with wound VAC to right foot. Continue cefepime and vancomycin. Follow up cultures. //HTN: BP 170's on arrival, remains elevated in the [id number] systolic. Started on lisinopril. Increase to 10 mg daily. Anxiety likely contributing. cont Ativan as needed. //DM2: Uncontrolled, secondary to Non-Compliance. Sliding scale w/ Accu- Cheks. Hemoglobin A1c 11.3. Patient counseled regarding the need to be compliant. Continue Levemir 5 units twice a day. 09/12 -Diabetes. Glucose elevated. Increase Levemir cont Sliding scale insulin with Accu-Cheks. DVT Prophylaxis: Heparin sq Discharge Planning continues with wound VAC. Patient is self-pay. Difficult discharge. -May need home diabetic supplies. -May need wound VAC.IV Rocephin as per infectious disease. Nitin Nash MD Sep 14, 2016 17:25 Nitin Nash MD Sep 14, 2016 17:25
[2016-09-14] MEDS ORDERED: NOVOLOGSS SQ (17:34)
[2016-09-14] MEDS ORDERED: LISI10TA3 PO (17:34)
[2016-09-14] MEDS ORDERED: AMLO5 PO (17:34)
[2016-09-14] MEDS ORDERED: LEVEMIR SQ (17:34)
[2016-09-14] MEDS ORDERED: PLAV75TA29 PO (17:34)
[2016-09-14] MEDS ORDERED: PHARMACY ORDERED LAB ONE (17:45)
[2016-09-14] MEDS: LORazepam 1 MG TAB PO PRN (21:36)
[2016-09-15] VITALS (26 sets, daily range): BP systolic 128–183; BP diastolic 75–102; PULSE 66–109; RESP 16–22; TEMP 97.9–98.1; O2SAT 98–100
[2016-09-15] MEDS: SODIUM CHLOR 0.9% 1000 ML INJ 1,000 ML IV SCH (03:47)
[2016-09-15] MEDS: INSULIN ASPART SUPPLEMENTAL SCALE SQ SCH ×4 (06:13→21:24)
[2016-09-15] MEDS: INSULIN DETEMIR 100 UNITS/ML VIAL SQ SCH ×2 (09:00→20:03)
[2016-09-15] MEDS: SODIUM CHLORIDE 0.9% FLUSH 10 ML FLUSH IV FLUSH SCH ×2 (09:20→21:25)
[2016-09-15] MEDS: amLODIPine BESYLATE 5 MG TAB PO SCH (09:21)
[2016-09-15] MEDS: DOCUSATE SODIUM 50 MG/SENNA 8.6 MG TAB PO SCH ×2 (09:21→20:00)
[2016-09-15] MEDS: CLOPIDOGREL 75 MG TAB PO SCH (09:22)
[2016-09-15] MEDS: HEPARIN SODIUM - SQ 10,000 UNITS/ML VIAL SQ SCH ×2 (09:22→20:01)
[2016-09-15] MEDS: LISINOPRIL 10 MG TAB PO SCH (09:22)
[2016-09-15] MEDS: hydrALAZINE HCL 20 MG/ML VIAL IV PUSH PRN ×2 (11:49→21:15)
[2016-09-15] MEDS ORDERED: LISI-515 PO (15:08)
[2016-09-15] MEDS ORDERED: ALCO1PAD (15:10)
[2016-09-15] MEDS ORDERED: BLOOD GLUCOSE T1 TES (15:10)
[2016-09-15] MEDS ORDERED: INSU1MIS (15:10)
[2016-09-15] MEDS ORDERED: BLOOD GLUCOSE M1 KIT (15:10)
--- NOTE | 2016-09-15 15:15 | HHI.PR ---
Subjective Remarks She is seen today around 2 PM. Says he's feeling all right. Denies any chest pain or shortness of breath. Reports pain is under control. Objective Vital Signs Date Time Temp Pulse Resp B/P Pulse Ox O2 Delivery O2 Flow Rate FiO2 09/15/16 14:00 82 09/15/16 14:00 128/75 09/15/16 13:00 88 09/15/16 12:00 87 09/15/16 11:00 98.1 87 17 183/102 100 09/15/16 11:00 84 09/15/16 10:00 96 09/15/16 09:00 66 09/15/16 08:00 97 09/15/16 08:00 98.1 95 18 153/85 99 09/15/16 07:00 96 09/15/16 07:00 95 09/15/16 07:00 87 09/15/16 06:00 87 09/15/16 05:00 92 09/15/16 04:00 100 09/15/16 03:45 97.9 95 16 145/79 98 09/15/16 03:00 82 09/15/16 02:00 83 09/15/16 01:00 87 09/15/16 00:00 96 09/14/16 23:30 98.0 99 16 130/71 97 09/14/16 23:00 92 09/14/16 22:00 100 09/14/16 21:00 102 09/14/16 20:45 98.1 96 16 171/98 98 09/14/16 20:00 96 09/14/16 19:00 106 09/14/16 18:00 114 09/14/16 17:00 90 09/14/16 16:00 96 I/O 09/14/16 09/14/16 09/14/16 09/15/16 09/15/16 09/15/16 07:00 15:00 23:00 07:00 15:00 23:00 Intake Total 340 ml 1000 ml 480 ml Output Total 600 ml 1880 ml 600 ml Balance -260 ml -880 ml -120 ml Intake Oral 240 ml 800 ml 480 ml IV Total 100 ml 200 ml 0 ml Output Urine Total 600 ml 1880 ml 600 ml # Bowel Movements 0 0 Result Diagram: 09/11/16 0330 09/15/16 0508 Objective Remarks GENERAL: . sitting in chair. Appears comfortable. Alert and oriented 3. SKIN: Warm and dry. HEAD: Normocephalic. EYES: No scleral icterus. No injection or drainage. NECK: Supple, trachea midline. No JVD. CARDIOVASCULAR: Regular rate and rhythm without murmurs, gallops, or rubs. RESPIRATORY: Breath sounds equal bilaterally. No accessory muscle use. GASTROINTESTINAL: Abdomen soft, non-tender, nondistended. MUSCULOSKELETAL: No cyanosis, or edema. right fifth ray amputation with wound VAC in place, again no appreciable change from yesterday.. BACK: Nontender without obvious deformity. No CVA tenderness. A/P Assessment and Plan 09/15/16====== acc Hypertension. Blood pressure had been elevated in the 180s systolic. Discussed with nursing. Improved with hydralazine. Lisinopril will be increased. Patient continues with wound VAC to right fifth ray amputation site. -disease. Continue Rocephin as per infectious disease. -can discharge when cleared by podiatry -Patient will need home health for IV antibiotics and wound VAC. Diabetes. Glucose levels acceptable. He shouldn't will need to administer insulin. Appreciate diabetic teaching assistance. Patient will need home diabetic supplies. //Sepsis: HR 124, Temp 101.6, WBC normal, elevated neutrophil count, Source- Right Foot Infection. S/p Blood Cult, Vanc/Zosyn in ER. Follow up cultures, continue IV Abx. No growth so far. Right Foot gangrene/cellulitis/ischemia: ongoing right foot infection. Foot MRI w/ no evidence of osteomyelitis. Podiatry and vascular surgery following. Plan for endovascular intervention today per vascular surgery Right SFA with high grade stenosis and right popliteal artery with CLERK SPECIALIST s/p recanalization right popliteal artery with DCB. drug coated stent of right SFA for high grade stenosis by Dr Rashid [facility] surgeon on 09/10/16 Infection R foot, necrotic s/p Partial 5th ray amputation R foot with partial closure and wound vac 09/11/[address] Coleman podiatry 09/12/16-Patient continues with wound VAC to right foot. Continue cefepime and vancomycin. Follow up cultures. //HTN: BP 170's on arrival, remains elevated in the [id number] systolic. Started on lisinopril. Increase to 10 mg daily. Anxiety likely contributing. cont Ativan as needed. //DM2: Uncontrolled, secondary to Non-Compliance. Sliding scale w/ Accu- Cheks. Hemoglobin A1c 11.3. Patient counseled regarding the need to be compliant. Continue Levemir 5 units twice a day. 09/12 -Diabetes. Glucose elevated. Increase Levemir cont Sliding scale insulin with Accu-Cheks. DVT Prophylaxis: Heparin sq Discharge Planning continues with wound VAC, IV antibiotics. Patient is self-pay. Difficult discharge. -Will need home diabetic supplies filled -We'll likely need home health care for wound VAC -We'll need to continue Rocephin to complete course as per infectious disease. Nitin Nash MD Sep 15, 2016 15:15
[2016-09-15] MEDS: cefTRIAXone INJ 2,000 MG in SODIUM CHLORIDE 0.9% INJ 100 ML IV SCH (16:10)
--- NOTE | 2016-09-15 16:27 | PD.POD ---
Subjective Podiatric Problems s/p R 5th ray amputation with Dr Grimm on 09/11/16 Seen at bedside this pm in NAD. Pain scale used: 0-10 numeric scale Pain score: 0 Past Med/Surg/Social History Social History Smoking Status: Former Smoker Objective Vital Signs Vital Signs Date Time Temp Pulse Resp B/P Pulse Ox O2 Delivery O2 Flow Rate FiO2 09/15/16 16:19 97.9 92 20 164/89 98 09/15/16 16:00 92 09/15/16 15:00 84 09/15/16 14:00 82 09/15/16 14:00 128/75 09/15/16 13:00 88 09/15/16 12:00 87 09/15/16 11:00 98.1 87 17 183/102 100 09/15/16 11:00 84 09/15/16 10:00 96 09/15/16 09:00 66 09/15/16 08:00 97 09/15/16 08:00 98.1 95 18 153/85 99 09/15/16 07:00 96 09/15/16 07:00 95 09/15/16 07:00 87 09/15/16 06:00 87 09/15/16 05:00 92 09/15/16 04:00 100 09/15/16 03:45 97.9 95 16 145/79 98 09/15/16 03:00 82 09/15/16 02:00 83 09/15/16 01:00 87 09/15/16 00:00 96 09/14/16 23:30 98.0 99 16 130/71 97 09/14/16 23:00 92 09/14/16 22:00 100 09/14/16 21:00 102 09/14/16 20:45 98.1 96 16 171/98 98 09/14/16 20:00 96 09/14/16 19:00 106 09/14/16 18:00 114 09/14/16 17:00 90 Coded Allergies: Ampicillin (Verified Allergy, Unknown, 09/08/16) Other Results Microbiology Date/Time Procedure Status Source Growth 09/11/16 13:53 Gram Stain - Final Complete Wound Foot 09/11/16 13:53 Wound Culture - Final Complete Group B Beta Strep 09/11/16 13:53 Fungal Smear - Final Resulted Wound Foot NO FUNGAL ELEMENTS SEEN. 09/11/16 13:53 Fungal Culture Resulted Wound Foot Pending 09/11/16 13:53 Acid Fast Stain - Final Resulted Wound Foot NO ACID FAST BACILLI SEEN 09/11/16 13:53 Mycobacterial Culture Resulted Wound Foot Pending Laboratory Tests Test 09/08/16 09/11/16 09/12/16 09/15/16 22:25 03:30 17:46 05:08 Neutrophils (%) (Auto) 86.3 % Lymphocytes (%) (Auto) 6.7 % Monocytes (%) (Auto) 6.4 % Eosinophils (%) (Auto) 0.1 % Basophils (%) (Auto) 0.5 % Neutrophils # (Auto) 8.9 TH/MM3 Lymphocytes # (Auto) 0.7 TH/MM3 Monocytes # (Auto) 0.7 TH/MM3 Eosinophils # (Auto) 0.0 TH/MM3 Basophils # (Auto) 0.0 TH/MM3 CBC Comment DIFF FINAL Differential Comment White Blood Count 7.2 TH/MM3 Red Blood Count 4.68 MIL/MM3 Hemoglobin 13.4 GM/DL Hematocrit 40.0 % Mean Corpuscular Volume 85.4 FL Mean Corpuscular Hemoglobin 28.6 PG Mean Corpuscular Hemoglobin 33.5 % Concent Red Cell Distribution Width 12.9 % Platelet Count 255 TH/MM3 Mean Platelet Volume 8.7 FL Sodium Level 140 MEQ/L Potassium Level 3.5 MEQ/L Chloride Level 105 MEQ/L Carbon Dioxide Level 27.2 MEQ/L Anion Gap 8 MEQ/L Blood Urea Nitrogen 13 MG/DL Random Glucose 206 MG/DL Calcium Level 8.7 MG/DL Vancomycin Level Trough 4.4 MCG/ML Creatinine 0.62 MG/DL Estimat Glomerular Filtration 136 ML/MIN Rate Exam-Podiatry Dermatological Exam Other: Scars, Surgery,Injury RLE Intact sutures. + granular base wound with no drainage and no acute soi. No exposed bone or tendon. 3x2cm LE is warm to warm. Assessment & Plan Diagnosis: (1) Right foot infection Status: Acute (2) Dry gangrene Status: Acute (3) Amputation of fifth toe, right, traumatic Status: Acute (4) DM (diabetes mellitus) Status: Acute A/P Wound VAC changed 09/15/16 Continue with schedule. WB with post op shoe. Plan for wound VAC 2-4 weeks. OK to d/c per Podiatry. Abx per ID F/U with Dr Grimm as an out patient with in 1 week of d/c. Dr Grimm begin coverage 09/17/16 Johnna Sullivan DPRosi Sep 15, 2016 16:27
[2016-09-15] MEDS: LORazepam 1 MG TAB PO PRN (20:08)
[2016-09-16] VITALS (27 sets, daily range): BP systolic 146–178; BP diastolic 80–94; PULSE 84–112; RESP 18–20; TEMP 97.9–98.4; O2SAT 98–100
[2016-09-16] MEDS: INSULIN ASPART SUPPLEMENTAL SCALE SQ SCH ×3 (06:07→20:52)
[2016-09-16] MEDS: INSULIN DETEMIR 100 UNITS/ML VIAL SQ SCH ×2 (09:00→20:51)
[2016-09-16] MEDS: DOCUSATE SODIUM 50 MG/SENNA 8.6 MG TAB PO SCH ×2 (09:27→20:53)
[2016-09-16] MEDS: SODIUM CHLORIDE 0.9% FLUSH 10 ML FLUSH IV FLUSH SCH ×2 (09:27→20:41)
[2016-09-16] MEDS: amLODIPine BESYLATE 5 MG TAB PO SCH (09:27)
[2016-09-16] MEDS: CLOPIDOGREL 75 MG TAB PO SCH (09:28)
[2016-09-16] MEDS: LISINOPRIL 10 MG TAB PO SCH (09:28)
[2016-09-16] MEDS: HEPARIN SODIUM - SQ 10,000 UNITS/ML VIAL SQ SCH ×2 (09:28→20:40)
--- NOTE | 2016-09-16 11:23 | HHI.PR ---
Subjective Remarks Patient says he feels well. Denies any chest pain or shortness of breath. Denies any nausea or vomiting. Her bowel movements. No dysuria. Right foot pain under control. Objective Vital Signs Date Time Temp Pulse Resp B/P Pulse Ox O2 Delivery O2 Flow Rate FiO2 09/16/16 10:00 93 09/16/16 09:00 87 09/16/16 08:00 88 09/16/16 07:56 98.1 88 20 167/87 100 09/16/16 07:00 94 09/16/16 07:00 86 09/16/16 06:00 86 09/16/16 05:00 86 09/16/16 04:14 87 09/16/16 04:00 98.0 88 18 147/81 98 09/16/16 03:00 84 09/16/16 02:00 87 09/16/16 01:00 84 09/16/16 00:00 98.4 95 20 146/80 99 09/16/16 00:00 95 09/15/16 23:00 100 09/15/16 22:00 98 09/15/16 21:00 102 09/15/16 20:00 99 09/15/16 20:00 98.0 109 22 182/95 99 09/15/16 19:00 108 09/15/16 18:00 109 09/15/16 17:06 88 09/15/16 16:19 97.9 92 20 164/89 98 09/15/16 16:00 92 09/15/16 15:00 84 09/15/16 14:00 82 09/15/16 14:00 128/75 09/15/16 13:00 88 09/15/16 12:00 87 I/O 09/15/16 09/15/16 09/15/16 09/16/16 09/16/16 09/16/16 07:00 15:00 23:00 07:00 15:00 23:00 Intake Total 480 ml 680 ml 244 ml Output Total 600 ml 825 ml 850 ml Balance -120 ml -145 ml -606 ml Intake Oral 480 ml 580 ml 240 ml IV Total 0 ml 100 ml 4 ml Output Urine Total 600 ml 825 ml 850 ml Stool Total 0 ml Drainage Total 0 ml # Voids 3 # Bowel Movements 0 Result Diagram: 09/15/16 2283 Objective Remarks GENERAL: . sitting in chair. Appears comfortable. Alert and oriented 3. no chnage from yesterday SKIN: Warm and dry. HEAD: Normocephalic. EYES: No scleral icterus. No injection or drainage. NECK: Supple, trachea midline. No JVD. CARDIOVASCULAR: Regular rate and rhythm without murmurs, gallops, or rubs. RESPIRATORY: Breath sounds equal bilaterally. No accessory muscle use. GASTROINTESTINAL: Abdomen soft, non-tender, nondistended. MUSCULOSKELETAL: No cyanosis, or edema. right fifth ray amputation with wound VAC in place, no appreciable change from yesterday.. BACK: Nontender without obvious deformity. No CVA tenderness. A/P Assessment and Plan 09/16/16====== //Hypertension. improved today SBO 160s on incr dose of lisinopril. monitor Patient continues with wound VAC to right fifth ray amputation site. -inf disease. Continue Rocephin as per infectious disease. -can discharge when cleared by podiatry -Patient will need home health for IV antibiotics and wound VAC. Diabetes. Glucose levels continue acceptable. patient will need to administer insulin. Appreciate diabetic teaching assistance. Patient will need home diabetic supplies. //Sepsis: HR 124, Temp 101.6, WBC normal, elevated neutrophil count, Source- Right Foot Infection. S/p Blood Cult, Vanc/Zosyn in ER. Follow up cultures, continue IV Abx. No growth so far. Right Foot gangrene/cellulitis/ischemia: ongoing right foot infection. Foot MRI w/ no evidence of osteomyelitis. Podiatry and vascular surgery following. Plan for endovascular intervention today per vascular surgery Right SFA with high grade stenosis and right popliteal artery with SKIN CARE SPECIALIST s/p recanalization right popliteal artery with DCB. drug coated stent of right SFA for high grade stenosis by Dr Rashid [facility] surgeon on 09/10/16 Infection R foot, necrotic s/p Partial 5th ray amputation R foot with partial closure and wound vac 09/11/[address] Coleman podiatry 09/12/16-Patient continues with wound VAC to right foot. Continue cefepime and vancomycin. Follow up cultures. //HTN: BP 170's on arrival, remains elevated in the [id number] systolic. Started on lisinopril. Increase to 10 mg daily. Anxiety likely contributing. cont Ativan as needed. //DM2: Uncontrolled, secondary to Non-Compliance. Sliding scale w/ Accu- Cheks. Hemoglobin A1c 11.3. Patient counseled regarding the need to be compliant. Continue Levemir 5 units twice a day. 09/12 -Diabetes. Glucose elevated. Increase Levemir cont Sliding scale insulin with Accu-Cheks. DVT Prophylaxis: Heparin sq Discharge Planning continues with wound VAC, IV antibiotics. Patient is self-pay. Difficult discharge. -Will need home diabetic supplies filled -We'll likely need home health care for wound VAC -We'll need to continue Rocephin to complete course as per infectious disease. Nitin Nash MD Sep 16, 2016 11:23
[2016-09-16] MEDS ORDERED: HYDROCHLOROTHIAZIDE 12.5 MG CAP PO ONE (12:00)
[2016-09-16] MEDS: LORazepam 1 MG TAB PO PRN ×2 (12:22→20:52)
--- NOTE | 2016-09-16 16:15 | HHI.PR ---
Subjective Remarks F/U DFI, DM and PVD Objective Vitals Vital Signs Date Time Temp Pulse Resp B/P Pulse Ox O2 Delivery O2 Flow Rate FiO2 09/16/16 15:00 112 09/16/16 15:00 98.3 102 20 153/85 100 09/16/16 14:00 86 09/16/16 13:00 96 09/16/16 12:11 98.1 99 18 178/94 100 09/16/16 12:00 99 09/16/16 11:00 90 09/16/16 10:00 93 09/16/16 09:00 87 09/16/16 08:00 88 09/16/16 07:56 98.1 88 20 167/87 100 09/16/16 07:00 94 09/16/16 07:00 86 09/16/16 06:00 86 09/16/16 05:00 86 09/16/16 04:14 87 09/16/16 04:00 98.0 88 18 147/81 98 09/16/16 03:00 84 09/16/16 02:00 87 09/16/16 01:00 84 09/16/16 00:00 98.4 95 20 146/80 99 09/16/16 00:00 95 09/15/16 23:00 100 09/15/16 22:00 98 09/15/16 21:00 102 09/15/16 20:00 99 09/15/16 20:00 98.0 109 22 182/95 99 09/15/16 19:00 108 09/15/16 18:00 109 09/15/16 17:06 88 09/15/16 16:19 97.9 92 20 164/89 98 I/O 09/15/16 09/15/16 09/15/16 09/16/16 09/16/16 09/16/16 07:00 15:00 23:00 07:00 15:00 23:00 Intake Total 480 ml 680 ml 244 ml Output Total 600 ml 825 ml 850 ml Balance -120 ml -145 ml -606 ml Intake Oral 480 ml 580 ml 240 ml IV Total 0 ml 100 ml 4 ml Output Urine Total 600 ml 825 ml 850 ml Stool Total 0 ml Drainage Total 0 ml # Voids 3 # Bowel Movements 0 Result Diagram: 09/15/16 0508 Imaging Last Impressions Foot X-Ray 09/11/16 0000 Signed Impressions: Service Date/Time: Sunday, September 11, 2016 09:51 - CONCLUSION: Status post fifth digit amputation as described above. Quang Dave MD Lower Extremity Ultrasound 09/10/16 0000 Signed Impressions: Service Date/Time: Saturday, September 10, 2016 12:28 - CONCLUSION: 1. No sonographic evidence for lower extremity DVT. 2. Incidental note of nonspecific right inguinal adenopathy. Dat Barlow MD Aorta w/Runoff CTA 09/10/16 0000 Signed Impressions: Service Date/Time: Saturday, September 10, 2016 10:11 - CONCLUSION: 1. Moderate distal aortic stenosis secondary to circumferential mixed plaque. 2. No significant iliac inflow stenosis. 3. Diffuse outflow disease bilaterally, right > left. There are moderate to severe stenoses in the right SFA in the mid to distal thigh with occlusion of the right popliteal artery at the level of the knee joint. 4. Very limited runoff on the right with occlusion/critical stenosis of the distal tibioperoneal trunk and occlusion of the anterior tibial artery at the ankle. Therefore, there is no continuous single in line flow on the right. 5. Limited three-vessel runoff on the left. 6. Punctate obstructing left inferior pole renal calyceal calculus. Dat Barlow MD Chest X-Ray 09/08/162151 Signed Impressions: Service Date/Time: Thursday, September 08, 2016 21:59 - CONCLUSION: No acute disease. Henri Thomas MD Foot MRI 09/08/16 0000 Signed Impressions: Service Date/Time: Thursday, September 08, 2016 23:35 - CONCLUSION: Soft tissue inflammation is around the fifth MTP joint. I don't see any evidence of marrow replacement to confirm osteomyelitis. No evidence of acute fracture or tendinous retraction. Plain film would be helpful to evaluate for foreign body and osteolysis. Claudio Colunga MD Objective Remarks GENERAL: Appears comfortable. Alert and oriented 3. SKIN: Warm and dry. HEAD: Normocephalic. EYES: No scleral icterus. No injection or drainage. NECK: Supple, trachea midline. No JVD. CARDIOVASCULAR: Regular rate and rhythm without murmurs, gallops, or rubs. RESPIRATORY: Breath sounds equal bilaterally. No accessory muscle use. GASTROINTESTINAL: Abdomen soft, non-tender, nondistended. MUSCULOSKELETAL: No cyanosis, or edema. right fifth ray amputation with wound VAC in place, BACK: Nontender without obvious deformity. No CVA tenderness. Procedures Right SFA with high grade stenosis and right popliteal artery with DIESEL FITTER MECHANIC s/p recanalization right popliteal artery with DCB. drug coated stent of right SFA for high grade stenosis by Dr Rashid [facility] surgeon on 09/10/16 Infection R foot, necrotic s/p Partial 5th ray amputation R foot with partial closure and wound vac 09/11/[address] Coleman podiatry A/P Problem List: (1) Sepsis ICD Code: A41.9 Status: Acute (2) Right foot infection ICD Code: L08.9 Status: Acute (3) Dehydration ICD Code: E86.0 Status: Resolved (4) HTN (hypertension) ICD Code: I10 Status: Chronic (5) DM (diabetes mellitus) ICD Code: E11.9 Status: Chronic Assessment and Plan Hypertension. improved today SBO 160s on incr dose of lisinopril. monitor DFI. Patient continues with wound VAC to right fifth ray amputation site. -inf disease. Continue Rocephin as per infectious disease. -can discharge when IV abx and wd vac arranged pt has no payor source -Patient will need home health for IV antibiotics and wound VAC. S/p Sepsis due to above Diabetes. Aic 11.3. Glucose levels continue acceptable. patient will need to administer insulin. Appreciate diabetic teaching assistance. Patient will need home diabetic supplies. DVT Prophylaxis: Heparin sq Problem Qualifiers (1) Sepsis: Qualified Code: A41.9 - Sepsis, due to unspecified organism Jamaal Fan MD Sep 16, 2016 16:15
[2016-09-16] MEDS ORDERED: HYDR12.57 PO (16:29)
--- NOTE | 2016-09-16 16:29 | HHI.DCPOC ---
Discharge Care Plan Diagnosis: (1) Right foot infection Your Health Problems Are: Exercise Tolerance Goals to Promote Your Health * To prevent worsening of your condition and complications * To maintain your health at the optimal level Directions to Meet Your Goals Take your medications as prescribed Follow your dietary instruction Follow activity as directed Keep your appointments as scheduled Take your immunizations and boosters as scheduled If your symptoms worsen call your PCP, if no PCP go to Urgent Care Center or Emergency Room Smoking is Dangerous to Your Health. Avoid second hand smoke Call the 24-hour hour crisis hotline for domestic abuse at Jamaal Fan MD Sep 16, 2016 16:29
--- NOTE | 2016-09-16 16:31 | HHI.FF ---
Face to Face Verification Diagnosis: (1) Right foot infection Physical Therapy Order: Evaluate and Treat Home Health Nursing Order: Diabetic education Medication education-adverse effect Wound care and dressing changes (wound vac) Nursing assessment with vital signs IV medication administration I have seen patient Oniel Miller on 09/16/16. My clinical findings support the need for the requested home health care services because: Ltd mobility - disease progression I certify that my clinical findings support that this patient is homebound because: Unsteady gait/balance Need for psychosocial assistance Jamaal Fan MD Sep 16, 2016 16:31
[2016-09-16] MEDS: cefTRIAXone INJ 2,000 MG in SODIUM CHLORIDE 0.9% INJ 100 ML IV SCH (17:23)
[2016-09-17] VITALS (15 sets, daily range): BP systolic 119–173; BP diastolic 63–89; PULSE 73–98; RESP 16–20; TEMP 98.2–98.6; O2SAT 96–99
[2016-09-17] MEDS: INSULIN ASPART SUPPLEMENTAL SCALE SQ SCH ×3 (06:13→16:00)
[2016-09-17] MEDS ORDERED: HYDROCHLOROTHIAZIDE 12.5 MG CAP PO SCH (09:00)
[2016-09-17] MEDS: INSULIN DETEMIR 100 UNITS/ML VIAL SQ SCH (09:00)
[2016-09-17] MEDS: amLODIPine BESYLATE 5 MG TAB PO SCH (09:16)
[2016-09-17] MEDS: DOCUSATE SODIUM 50 MG/SENNA 8.6 MG TAB PO SCH (09:16)
[2016-09-17] MEDS: LISINOPRIL 10 MG TAB PO SCH (09:17)
[2016-09-17] MEDS: CLOPIDOGREL 75 MG TAB PO SCH (09:17)
[2016-09-17] MEDS: HEPARIN SODIUM - SQ 10,000 UNITS/ML VIAL SQ SCH (09:17)
[2016-09-17] MEDS: SODIUM CHLORIDE 0.9% FLUSH 10 ML FLUSH IV FLUSH SCH (09:18)
[2016-09-17] MEDS ORDERED: LEVEMIR SQ ×2 (10:16)
[2016-09-17] MEDS ORDERED: NOVOLOGSS SQ (10:18)
--- NOTE | 2016-09-17 10:25 | HHI.PR ---
Subjective Remarks Follow-up diabetic foot infection and diabetes mellitus. Patient is doing okay wants to go home. Denies any pain. BP elevated no headache, dizziness, chest pain and shortness of breath and hydrochlorothiazide started today. Discussed with RN, patient to be discharged after PICC. We'll also clarify with podiatry regarding wound VAC which patient does not want. Objective Vitals Vital Signs Date Time Temp Pulse Resp B/P Pulse Ox O2 Delivery O2 Flow Rate FiO2 09/17/16 10:17 88 09/17/16 09:37 98.5 93 16 173/89 96 09/17/16 08:00 96 09/17/16 06:03 83 09/17/16 05:27 88 09/17/16 04:00 98.2 80 20 131/77 99 09/17/16 04:00 81 09/17/16 03:00 80 09/17/16 02:00 89 09/17/16 01:00 89 09/17/16 00:00 86 09/17/16 00:00 98.2 86 20 119/63 99 09/16/16 23:00 85 09/16/16 22:00 92 09/16/16 21:00 85 09/16/16 20:00 89 09/16/16 20:00 97.9 108 20 172/90 99 09/16/16 19:00 108 09/16/16 18:00 93 09/16/16 17:00 96 09/16/16 16:00 102 09/16/16 15:00 112 09/16/16 15:00 98.3 102 20 153/85 100 09/16/16 14:00 86 09/16/16 13:00 96 09/16/16 12:11 98.1 99 18 178/94 100 09/16/16 12:00 99 09/16/16 11:00 90 I/O 09/16/16 09/16/16 09/16/16 09/17/16 09/17/16 09/17/16 07:00 15:00 23:00 07:00 15:00 23:00 Intake Total 244 ml 900 ml 240 ml Output Total 850 ml 1200 ml Balance -606 ml 900 ml -960 ml Intake Oral 240 ml 900 ml 240 ml IV Total 4 ml Output Urine Total 850 ml 1200 ml Drainage Total 0 ml 0 ml # Voids 4 Result Diagram: 09/15/16 0508 Imaging Last Impressions Foot X-Ray 09/11/16 0000 Signed Impressions: Service Date/Time: Sunday, September 11, 2016 09:51 - CONCLUSION: Status post fifth digit amputation as described above. Quang Dave MD Lower Extremity Ultrasound 09/10/16 0000 Signed Impressions: Service Date/Time: Saturday, September 10, 2016 12:28 - CONCLUSION: 1. No sonographic evidence for lower extremity DVT. 2. Incidental note of nonspecific right inguinal adenopathy. Dat Barlow MD Aorta w/Runoff CTA 09/10/16 0000 Signed Impressions: Service Date/Time: Saturday, September 10, 2016 10:11 - CONCLUSION: 1. Moderate distal aortic stenosis secondary to circumferential mixed plaque. 2. No significant iliac inflow stenosis. 3. Diffuse outflow disease bilaterally, right > left. There are moderate to severe stenoses in the right SFA in the mid to distal thigh with occlusion of the right popliteal artery at the level of the knee joint. 4. Very limited runoff on the right with occlusion/critical stenosis of the distal tibioperoneal trunk and occlusion of the anterior tibial artery at the ankle. Therefore, there is no continuous single in line flow on the right. 5. Limited three-vessel runoff on the left. 6. Punctate obstructing left inferior pole renal calyceal calculus. Dat Barlow MD Chest X-Ray 09/08/16 391 Signed Impressions: Service Date/Time: Thursday, September 08, 2016 21:59 - CONCLUSION: No acute disease. Henri Thomas MD Foot MRI 09/08/16 0000 Signed Impressions: Service Date/Time: Thursday, September 08, 2016 23:35 - CONCLUSION: Soft tissue inflammation is around the fifth MTP joint. I don't see any evidence of marrow replacement to confirm osteomyelitis. No evidence of acute fracture or tendinous retraction. Plain film would be helpful to evaluate for foreign body and osteolysis. Claudio Colunga MD Objective Remarks GENERAL: Appears comfortable. Alert and oriented 3. SKIN: Warm and dry. HEAD: Normocephalic. EYES: No scleral icterus. No injection or drainage. NECK: Supple, trachea midline. No JVD. CARDIOVASCULAR: Regular rate and rhythm without murmurs, gallops, or rubs. RESPIRATORY: Breath sounds equal bilaterally. No accessory muscle use. GASTROINTESTINAL: Abdomen soft, non-tender, nondistended. MUSCULOSKELETAL: No cyanosis, or edema. right fifth ray amputation with wound VAC in place, BACK: Nontender without obvious deformity. No CVA tenderness. Procedures Right SFA with high grade stenosis and right popliteal artery with PERSONAL PROPERTY APPRAISER s/p recanalization right popliteal artery with DCB. drug coated stent of right SFA for high grade stenosis by Dr Rashid [facility] surgeon on 09/10/16 Infection R foot, necrotic s/p Partial 5th ray amputation R foot with partial closure and wound vac 09/11/[address] Coleman podiatry PICC today A/P Problem List: (1) Sepsis ICD Code: A41.9 Status: Acute (2) Right foot infection ICD Code: L08.9 Status: Acute (3) Dehydration ICD Code: E86.0 Status: Resolved (4) HTN (hypertension) ICD Code: I10 Status: Chronic (5) DM (diabetes mellitus) ICD Code: E11.9 Status: Chronic Assessment and Plan Hypertension. Still elevated. Hydrochlorothiazide started today. Continue lisinopril and Norvasc. Continue to monitor. DFI. Patient continues with wound VAC to right fifth ray amputation site. -inf disease. Continue Rocephin week started 09/14/16 via PICC as per infectious disease. -can discharge when IV abx and wd vac arranged pt has no payor source -Patient will need home health for IV antibiotics and wound VAC. S/p Sepsis due to above Diabetes. Aic 11.3. Glucose levels continue acceptable. Increase Levemir to 10 units in the morning for better control and continue it units at bedtime. Appreciate diabetic teaching assistance. Patient will need home diabetic supplies. DVT Prophylaxis: Heparin sq Discharge Planning Discharge when home care with IV Rocephin and wound VAC arranged Problem Qualifiers (1) Sepsis: Qualified Code: A41.9 - Sepsis, due to unspecified organism Jamaal Fan MD Sep 17, 2016 10:25
--- NOTE | 2016-09-17 10:26 | HHI.DS ---
Discharge Summary Admission Date Sep 08, 2016 at 23:39 Discharge Date: Sep 17, 2016 Admitting Diagnosis sepsis, diabetic foot, hyperglycemia (1) Sepsis ICD Code: A41.9 Diagnosis: Principal (2) Right foot infection ICD Code: L08.9 Diagnosis: Principal (3) Dehydration ICD Code: E86.0 Diagnosis: Secondary (4) HTN (hypertension) ICD Code: I10 Diagnosis: Principal (5) DM (diabetes mellitus) ICD Code: E11.9 Diagnosis: Principal Procedures Right SFA with high grade stenosis and right popliteal artery with FLOAT PHLEBOTOMIST s/p recanalization right popliteal artery with DCB. drug coated stent of right SFA for high grade stenosis by Dr Rashid [facility] surgeon on 09/10/16 Infection R foot, necrotic s/p Partial 5th ray amputation R foot with partial closure and wound vac 09/11/[address] Coleman podiatry [facility] today Brief History - From Admission This is a 51-year-old male with PMH of HTN, DM and Non-Compliance who presents to ER with complaint of right foot pain and swelling x4-5 days. States he noticed a blister on his foot which popped on its own, notes area has gotten progressively worse since then. Denies fever or chills. On arrival, BP 190/88 , HR 124, O2 sat 98% on RA, Temp 101.6. CBC unremarkable except for elevated neutrophil count. GFR 85, no previous labs for comparison. BS 318. CXR with no acute findings. MRI ft. With soft tissue inflammation around fifth MTP, no evidence of marrow replacement to confirm osteomyelitis. S/p Blood Cultures, Vanc/Zosyn in ER. CBC/BMP: 09/15/16 0508 Imaging Last Impressions Foot X-Ray 09/11/16 0000 Signed Impressions: Service Date/Time: Sunday, September 11, 2016 09:51 - CONCLUSION: Status post fifth digit amputation as described above. Quang Dave MD Lower Extremity Ultrasound 09/10/16 0000 Signed Impressions: Service Date/Time: Saturday, September 10, 2016 12:28 - CONCLUSION: 1. No sonographic evidence for lower extremity DVT. 2. Incidental note of nonspecific right inguinal adenopathy. Dat Barlow MD Aorta w/Runoff CTA 09/10/16 0000 Signed Impressions: Service Date/Time: Saturday, September 10, 2016 10:11 - CONCLUSION: 1. Moderate distal aortic stenosis secondary to circumferential mixed plaque. 2. No significant iliac inflow stenosis. 3. Diffuse outflow disease bilaterally, right > left. There are moderate to severe stenoses in the right SFA in the mid to distal thigh with occlusion of the right popliteal artery at the level of the knee joint. 4. Very limited runoff on the right with occlusion/critical stenosis of the distal tibioperoneal trunk and occlusion of the anterior tibial artery at the ankle. Therefore, there is no continuous single in line flow on the right. 5. Limited three-vessel runoff on the left. 6. Punctate obstructing left inferior pole renal calyceal calculus. Dat Barlow MD Chest X-Ray 09/08/162151 Signed Impressions: Service Date/Time: Thursday, September 08, 2016 21:59 - CONCLUSION: No acute disease. Henri Thomas MD Foot MRI 09/08/16 0000 Signed Impressions: Service Date/Time: Thursday, September 08, 2016 23:35 - CONCLUSION: Soft tissue inflammation is around the fifth MTP joint. I don't see any evidence of marrow replacement to confirm osteomyelitis. No evidence of acute fracture or tendinous retraction. Plain film would be helpful to evaluate for foreign body and osteolysis. Claudio Colunga MD PE at Discharge GENERAL: Appears comfortable. Alert and oriented 3. SKIN: Warm and dry. HEAD: Normocephalic. EYES: No scleral icterus. No injection or drainage. NECK: Supple, trachea midline. No JVD. CARDIOVASCULAR: Regular rate and rhythm without murmurs, gallops, or rubs. RESPIRATORY: Breath sounds equal bilaterally. No accessory muscle use. GASTROINTESTINAL: Abdomen soft, non-tender, nondistended. MUSCULOSKELETAL: No cyanosis, or edema. right fifth ray amputation with wound VAC in place, BACK: Nontender without obvious deformity. No CVA tenderness. Hospital Course Hypertension. Still elevated. Hydrochlorothiazide started today. Continue lisinopril and Norvasc. Continue to monitor. DFI. Patient continues with wound VAC to right fifth ray amputation site. -inf disease. Continue Rocephin week started 09/14/16 via PICC as per infectious disease. -can discharge when IV abx and wd vac arranged pt has no payor source -Patient will need home health for IV antibiotics and wound VAC. S/p Sepsis due to above Diabetes. Aic 11.3. Glucose levels continue acceptable. Increase Levemir to 10 units in the morning for better control and continue it units at bedtime. Appreciate diabetic teaching assistance. Patient will need home diabetic supplies. DVT Prophylaxis: Heparin sq Pt Condition on Discharge: Stable Discharge Disposition: Disch w/ Home Health Serv Discharge Time: > 30 minutes Discharge Instructions DIET: Follow Instructions for: Heart Healthy Diet, Diabetic Diet Activities you can perform: Weight Bearing as Danielle Follow up Referrals: Infectious Disease - 1 Week PCP Follow-up - 1 Week Podiatry - 1 Week New Medications: Alcohol Swabs (Alcohol Prep Pads) 70 % Pad 1 PAD .ROUTE DIRECTED Aseptic process #1 Ref 0 BOX Blood Glucose Monitoring W/Device (Blood Glucose Monitoring W/Device) 1 Kit Kit 1 KIT .ROUTE DIRECTED Blood Sugar Management #1 Ref 0 KIT Blood Glucose Test Strips (Blood Glucose Test Strips) Strips Strip 1 EA .ROUTE DIRECTED Blood Sugar Management #1 Ref 0 BOX Insulin Syringe/Needle U-100 (Insulin Syringe/U-100/1Ml 28G X 1/2" 1 ml) 1 Mis Mis 1 EA .ROUTE DIRECTED Blood Sugar Management #1 BOX Lisinopril (Lisinopril) 20 Mg Tab 20 MG PO DAILY #30 Ref 0 TAB Amlodipine (Norvasc) 5 Mg Tab 5 MG PO DAILY Blood Pressure Management Days 30 TAB Clopidogrel (Plavix) 75 Mg Tab 75 MG PO DAILY Blood Clot Prevention Days 30 TAB Hydrochlorothiazide (Hydrochlorothiazide) 12.5 Mg Cap 12.5 MG PO DAILY Blood Pressure Management #30 CAP Insulin Aspart Inj (Novolog Inj) 100 Unit/Ml Inj 1 INJECTION SQ ACHS SLIDING SCALE Do not cover Fasting Sugar less than 200; Max dose at bedtime: 2 units; Max dose at 3am: 0 units; blood sugars less than 70: 0 units; blood sugars 150-199: 1 unit; blood sugars 200-249: 3 units; blood sugars 250-299: 5 units; blood sugars 300-349: 7 units; blood sugars greater than 349: 9 units. Blood Sugar Management Days 30 INJECTION Insulin Detemir Inj (Levemir Inj) 1,000 unit/ 10 ML Vial 8 UNITS SQ HS Blood Sugar Management #30 INJECTION Insulin Detemir Inj (Levemir Inj) 1,000 unit/ 10 ML Vial 10 UNITS SQ DAILYAC Blood Sugar Management #30 INJECTION Additional Information I spent 35 minutes [id number] with the patient or on the nieto discussing the patient's disposition, prognosis, and plan of care with patient's caregivers. Over half the time spent was devoted to counseling the patient regarding placement in coordinating care with caregivers and case management. Jamaal Fan MD Sep 17, 2016 10:26
--- NOTE | 2016-09-17 12:48 | HHI.FF ---
Infusion Therapy Location of Infusion Therapy: Home Health Care IV Infusion Order Patient Information Patient Weight 84 kg Diagnosis: Coded Allergies: Ampicillin (Verified Allergy, Unknown, 09/08/16) Administer Medication Ceftriaxone 2 grams IV q 24 hours Start Treatment: Sep 17, 2016 Stop Treatment: Oct 09, 2016 Additional Information Venous access: PICC Line Additional Instructions [x] Peripheral flush and dressing changes per protocol [x] Implanted port and central field pipelines supervisor: * Implanted port: 10 ml Normal Saline followed by 5 ml Heparin 100 units/ml Heparin flush after each use and monthly to maintain. [] May leave port accessed during therapy. [] May leave peripheral site accessed for duration of therapy. [x] If patient has SOB or respiratory distress, check oxygen saturation. If less than 90% or clinical signs of respiratory distress, administer oxygen at 2 L/min. via nasal cannula and notify physician. [x] Anaphylaxis/Reaction orders: * Stop infusion. * Keep IV line open with saline flush. * Notify physician. * Monitor vital signs every 15 minutes until symptoms resolve. * Check Oxygen saturation; Oxygen at 2 L/min. via nasal cannula if less than 90% or clinical signs of respiratory distress. * Administer diphenhydramine (Benadryl) 25 mg IV STAT, (unless patient has received as pre-med). May repeat once, if necessary. * Solu-Cortef 250 mg IVP over 30-60 seconds, use 100 mg vials for each dissolution. * Epinephrine (1mg/1 ml) 0.3 mg subcutaneously or IVP now with any signs of respiratory distress. * Check with physician for new additional pre-med orders if patient is re- challenged or re-treated. [x] May remove PICC line when treatment complete, after confirming with Physician. [x] If the patient is admitted to the hospital, the ED, or transferred via EVAC , complete transfer form including medication reconciliation order sheet. Laboratory Tests Weekly Labs: CBC w/diff, Creatinine, LFT's (Hepatic function test), SED Rate Claudia Poole MD Sep 17, 2016 12:48
[2016-09-17] MEDS: LORazepam 1 MG TAB PO PRN (15:23)
[2016-09-17] MEDS: cefTRIAXone INJ 2,000 MG in SODIUM CHLORIDE 0.9% INJ 100 ML IV SCH (15:25)
[2016-09-17] MEDS ORDERED: INSULIN DETEMIR 100 UNITS/ML VIAL SQ SCH (21:00)
[2016-09-18] MEDS ORDERED: INSULIN DETEMIR 100 UNITS/ML VIAL SQ SCH (08:00)
[2016-09-18] MEDS ORDERED: CEFT2INJ IV (14:41)
== END 2016-09-17 16:50 | disposition home health service (06) | DRG 854 ==
LOC: NEPD 19:46 → NEDA 23:39 → N04B 09-09 01:42 → HCIS 09-10 18:24 → HCIN 09-10 19:58
PROVIDERS: ADMIT Internal Medicine; ATTEND Internal Medicine
PROC: 047K34Z Dilation of Right Femoral Artery with Drug-eluting Intraluminal Device, Percutaneous Approach (ICD-10-PCS; 2016-09-10)
PROC: B41F1ZZ Fluoroscopy of Right Lower Extremity Arteries using Low Osmolar Contrast (ICD-10-PCS; 2016-09-10)
PROC: 047M341 Dilation of Right Popliteal Artery with Drug-eluting Intraluminal Device, using Drug-Coated Balloon, Percutaneous Approach (ICD-10-PCS; principal; 2016-09-10 16:39)
PROC: 0Y6X0Z3 Detachment at Right 5th Toe, Low, Open Approach (ICD-10-PCS; 2016-09-11)
DX: A41.9 Sepsis, unspecified organism (principal); E11.52 Type 2 diabetes mellitus with diabetic peripheral angiopathy with gangrene; E11.621 Type 2 diabetes mellitus with foot ulcer; I70.261 Atherosclerosis of native arteries of extremities with gangrene, right leg; E11.65 Type 2 diabetes mellitus with hyperglycemia; L03.115 Cellulitis of right lower limb; I10 Essential (primary) hypertension; E86.0 Dehydration; Z91.19 Patient's noncompliance with other medical treatment and regimen; Z83.3 Family history of diabetes mellitus; Z87.891 Personal history of nicotine dependence; B95.1 Streptococcus, group B, as the cause of diseases classified elsewhere; L97.509 Non-pressure chronic ulcer of other part of unspecified foot with unspecified severity; F41.9 Anxiety disorder, unspecified; E11.628 Type 2 diabetes mellitus with other skin complications
CPT/HCPCS: 36569; 37226; 37228; 71010; 73630; 73720; 75635; 75710; 76937; 80048; 80053; 80202; 82565; 82805; 82948; 83036; 83605; 85002; 85025; 85027; 85610; 86403; 86850; 86900; 86901; 87015; 87040; 87070; 87102; 87116; 87205; 87206; 88304; 88305; 88311; 93923; 93970; 93998; 96374; A9579; G0269; J0360; J0692; J0696; J1580; J1644; J1815; J2250; J2270; J2543; J3010; J3370; J7030; J7040; J7050; J7120; L3260; Q9967

== ENCOUNTER 2017-12-20 20:09 | Inpatient (IN) ==
[2017-12-20] MEDS ORDERED: Sod Chloride 0.9% Inj 1,000 ML IV.CONT SCH (22:15)
[2017-12-20 22:33] LABS: Baso # (Auto) 0.1 th/mm3 (0.0-0.2); Baso % (Auto) 0.7 % (0.0-2.0); Eos # (Auto) 0.3 th/mm3 (0.0-0.4); Eos % (Auto) 3.5 % (0.0-4.0); Hematocrit 31.6 % (39.0-51.0); Hemoglobin 10.5 gm/dL (13.0-17.0); Lymph # (Auto) 1.6 th/mm3 (1.0-4.8); Lymph % (Auto) 19.5 % (9.0-44.0); Mean Corpuscular HGB Conc 33.2 % (32.0-36.0); Mean Corpuscular Hemoglobin 27.8 pg (27.0-34.0); Mean Corpuscular Volume 83.7 fL (80.0-100.0); Mean Platelet Volume 8.1 fL (7.0-11.0); Mono # (Auto) 0.6 th/mm3 (0.0-0.9); Mono % (Auto) 7.2 % (0.0-8.0); Neut # (Auto) 5.8 th/mm3 (1.8-7.7); Neut % (Auto) 69.1 % (16.0-70.0); Platelet Count 249 th/mm3 (150-450); Red Blood Count 3.77 mil/mm3 (4.50-5.90); Red Cell Distribution Width 15.9 % (11.6-17.2); White Blood Count 8.4 th/mm3 (4.0-11.0)
[2017-12-20 23:05] LABS: Calcium 9.1 mg/dL (8.5-10.1); Carbon Dioxide 27.8 meq/L (21.0-32.0); Potassium 4.9 meq/L (3.5-5.1)
--- NOTE | 2017-12-20 23:56 | ED ---
HPI General Chief complaint: Medical Clearance Stated complaint: surgery [facility] for 12/21/17 Time Seen by Provider: 12/20/17 21:48 Source: patient Mode of arrival: ambulatory Limitations: no limitations History of Present Illness HPI narrative: 52-year-old male came to the emergency room with history of left BKA wound infection postop. Patient says that he had his surgery done almost a month ago. He fell and injured his stump 1 week ago. He had come to the emergency room since the surgical wound appeared to be erythematous. He was evaluated and discharged home. Patient is a diabetic. Patient says that the wound has continued to look worse and having a lot of copious drainage. He was seen at the orthopedist's office this afternoon and was recommended to come to the emergency room and be admitted. He was told that Dr. Hidalgo will take him to the OR in the morning and washout the wound. He was started on Bactrim today and he took his first dose at 3 PM. Patient denies any fever or chills. He says he took his blood sugar yesterday morning and it was 117. Vital signs were relatively stable upon arrival. Bedside blood sugar here was 327. Related Data Home Medications Medication Instructions Recorded Confirmed amlodipine 5 mg PO DAILY 12/12/17 12/20/17 lisinopril 20 mg PO DAILY 12/12/17 12/20/17 metformin 500 mg PO BID 12/12/17 12/20/17 Previous Rx's Medication Instructions Recorded cephalexin [Keflex] 500 mg PO BID 10 Days #20 cap 12/18/17 sulfamethoxazole-trimethoprim 1 tab PO DAILY 10 Days #10 tab 12/18/17 [Bactrim DS] Allergies Allergy/AdvReac Type Severity Reaction Status Date / Time ampicillin Allergy Severe Hives Verified 12/18/17 21:48 Penicillins Allergy Mild Hives Verified 12/18/17 21:48 vancomycin Allergy Mild Hives Verified 12/18/17 21:48 *MDRO Multi-Drug Resistant AdvReac Unknown NONE Uncoded 12/12/17 12:07 Organism Review of Systems ROS: all other systems reviewed are negative [facility] Medical History Medical History Amputated toe of right foot (Acute) DVT (deep venous thrombosis) (Acute) Diabetes (Acute) Hypertension (Acute) Kidney stone (Acute) Surgical History Surgical History Amputated below knee (Acute) Social History Social History Substance History: Active Abuse Second Hand Smoke Exposure: Yes Smoking Status: Former smoker Tobacco Type: Cigarettes How Often Do You Have a Drink Containing Alcohol: Never Recent Travel in [facility] within the Last 8 Weeks: No Recent Out of Country Travel within the Last 8 Weeks: No Substance Abuse Detail Marijuana: Route Used Substance Abuse: Inhalation Reason for Use: Calm Down Immunization History Tetanus Immunization: <5 Years Tetanus Immunization Year if Known: 2014 Exam Narrative Exam Narrative: GENERAL: Awake, alert, mild distress, emaciated SKIN: Focused skin assessment warm/dry. Pale HEAD: Atraumatic. Normocephalic. EYES: Pupils equal and round. No scleral icterus. No injection or drainage. ENT: No nasal bleeding or discharge. Dry mucous membrane and tongue NECK: Trachea midline. No JVD. CARDIOVASCULAR: Regular rate and rhythm. No murmur appreciated. RESPIRATORY: No accessory muscle use. Clear to auscultation. Breath sounds equal bilaterally. GASTROINTESTINAL: Abdomen soft, non-tender, nondistended. Hepatic and splenic margins not palpable. MUSCULOSKELETAL: No obvious deformities. No clubbing. No cyanosis. No edema. Left BKA. Surgical wound with cat. 5 cm of wound dehiscence in the central portion with serosanguineous drainage. NEUROLOGICAL: Awake and alert. No obvious cranial nerve deficits. Motor grossly within normal limits. Normal speech. PSYCHIATRIC: Appropriate mood and affect; insight and judgment normal. Course Initial Documented Vital Signs Temperature 98.3 F 12/20/17 20:31 Pulse Rate 100 H 12/20/17 20:31 Respiratory Rate 18 12/20/17 20:31 Blood Pressure 124/76 12/20/17 20:31 Pulse Oximetry 98 12/20/17 20:31 Last Documented Vital Signs Temperature 99 F 12/23/17 16:00 Pulse Rate 90 12/23/17 16:00 Respiratory Rate 16 12/23/17 16:00 Blood Pressure 153/74 H 12/23/17 16:00 Pulse Oximetry 99 12/23/17 16:00 Medical Decision Making MDM Narrative Medical decision making narrative: 12 AM patient was given 1 L of IV fluid bolus. Blood test results are back and patient has hyperglycemia. I discussed the case with Dr. Hidalgo and she recommended admission to the hospitalist. She was okay with not starting the patient on any IV antibiotics. I discussed the case with Dr. Wilson and she is accepted the patient. Medical Screen Exam Complete: Yes Emergency Medical Condition: Yes Differential Diagnosis Differential Diagnosis: Postop wound infection, wound dehiscence, MRSA infection Lab Data Result diagrams: 12/22/17 07:10 12/22/17 07:10 Lab Results 12/20/17 12/20/17 12/20/17 Range/Units 22:00 22:08 22:08 WBC 8.4 (4.0-11.0) th/mm3 RBC 3.77 L (4.50-5.90) mil/mm3 Hgb 10.5 L (13.0-17.0) gm/dL Hct 31.6 L (39.0-51.0) % MCV 83.7 (80.0-100.0) fL MCH 27.8 (27.0-34.0) pg MCHC 33.2 (32.0-36.0) % RDW 15.9 (11.6-17.2) % Plt Count 249 (150-450) th/mm3 MPV 8.1 (7.0-11.0) fL Neut % (Auto) 69.1 (16.0-70.0) % Lymph % (Auto) 19.5 (9.0-44.0) % [place] % (Auto) 7.2 (0.0-8.0) % Eos % (Auto) 3.5 (0.0-4.0) % Baso % (Auto) 0.7 (0.0-2.0) % Neut # (Auto) 5.8 (1.8-7.7) th/mm3 Lymph # (Auto) 1.6 (1.0-4.8) th/mm3 [place] # (Auto) 0.6 (0.0-0.9) th/mm3 Eos # (Auto) 0.3 (0.0-0.4) th/mm3 Baso # (Auto) 0.1 (0.0-0.2) th/mm3 WBC Differential . Differential Comment Auto diff final Sodium 135 L (136-145) meq/L Potassium 4.9 (3.5-5.1) meq/L Chloride 101 (98-107) meq/L Carbon Dioxide 27.8 (21.0-32.0) meq/L Anion Gap 6 (5-15) meq/L BUN 33 H (7-18) mg/dL Creatinine 1.35 H (0.60-1.30) mg/dL Estimated GFR 55 L (>89) mL/min POC Glucose 327 H (68-110) mg/dl Random Glucose 322 H (74-106) mg/dL Calcium 9.1 (8.5-10.1) mg/dL Total Bilirubin (0.2-1.0) mg/dL AST (15-37) U/L ALT (12-78) U/L Alkaline Phosphatase (45-117) U/L Total Protein (6.4-8.2) g/dL Albumin (3.4-5.0) g/dL 12/21/17 12/21/17 12/21/17 Range/Units 07:35 09:52 12:09 WBC (4.0-11.0) th/mm3 RBC (4.50-5.90) mil/mm3 Hgb (13.0-17.0) gm/dL Hct (39.0-51.0) % MCV (80.0-100.0) fL MCH (27.0-34.0) pg MCHC (32.0-36.0) % RDW (11.6-17.2) % Plt Count (150-450) th/mm3 MPV (7.0-11.0) fL Neut % (Auto) (16.0-70.0) % Lymph % (Auto) (9.0-44.0) % [place] % (Auto) (0.0-8.0) % Eos % (Auto) (0.0-4.0) % Baso % (Auto) (0.0-2.0) % Neut # (Auto) (1.8-7.7) th/mm3 Lymph # (Auto) (1.0-4.8) th/mm3 [place] # (Auto) (0.0-0.9) th/mm3 Eos # (Auto) (0.0-0.4) th/mm3 Baso # (Auto) (0.0-0.2) th/mm3 WBC Differential Differential Comment Sodium (136-145) meq/L Potassium (3.5-5.1) meq/L Chloride (98-107) meq/L Carbon Dioxide (21.0-32.0) meq/L Anion Gap (5-15) meq/L BUN (7-18) mg/dL Creatinine (0.60-1.30) mg/dL Estimated GFR (>89) mL/min POC Glucose 139 H 139 H 185 H (68-110) mg/dl Random Glucose (74-106) mg/dL Calcium (8.5-10.1) mg/dL Total Bilirubin (0.2-1.0) mg/dL AST (15-37) U/L ALT (12-78) U/L Alkaline Phosphatase (45-117) U/L Total Protein (6.4-8.2) g/dL Albumin (3.4-5.0) g/dL 12/21/17 12/21/17 12/22/17 Range/Units 16:41 19:58 07:10 WBC 8.9 (4.0-11.0) th/mm3 RBC 3.67 L (4.50-5.90) mil/mm3 Hgb 10.4 L (13.0-17.0) gm/dL Hct 30.9 L (39.0-51.0) % MCV 84.2 (80.0-100.0) fL MCH 28.2 (27.0-34.0) pg MCHC 33.5 (32.0-36.0) % RDW 15.7 (11.6-17.2) % Plt Count 223 (150-450) th/mm3 MPV 8.2 (7.0-11.0) fL Neut % (Auto) 73.4 H (16.0-70.0) % Lymph % (Auto) 14.4 (9.0-44.0) % [place] % (Auto) 8.3 H (0.0-8.0) % Eos % (Auto) 3.3 (0.0-4.0) % Baso % (Auto) 0.6 (0.0-2.0) % Neut # (Auto) 6.5 (1.8-7.7) th/mm3 Lymph # (Auto) 1.3 (1.0-4.8) th/mm3 [place] # (Auto) 0.7 (0.0-0.9) th/mm3 Eos # (Auto) 0.3 (0.0-0.4) th/mm3 Baso # (Auto) 0.1 (0.0-0.2) th/mm3 WBC Differential . Differential Comment Auto diff final Sodium (136-145) meq/L Potassium (3.5-5.1) meq/L Chloride (98-107) meq/L Carbon Dioxide (21.0-32.0) meq/L Anion Gap (5-15) meq/L BUN (7-18) mg/dL Creatinine (0.60-1.30) mg/dL Estimated GFR (>89) mL/min POC Glucose 153 H 190 H (68-110) mg/dl Random Glucose (74-106) mg/dL Calcium (8.5-10.1) mg/dL Total Bilirubin (0.2-1.0) mg/dL AST (15-37) U/L ALT (12-78) U/L Alkaline Phosphatase (45-117) U/L Total Protein (6.4-8.2) g/dL Albumin (3.4-5.0) g/dL 12/22/17 12/22/17 12/22/17 Range/Units 07:10 07:53 11:52 WBC (4.0-11.0) th/mm3 RBC (4.50-5.90) mil/mm3 Hgb (13.0-17.0) gm/dL Hct (39.0-51.0) % MCV (80.0-100.0) fL MCH (27.0-34.0) pg MCHC (32.0-36.0) % RDW (11.6-17.2) % Plt Count (150-450) th/mm3 MPV (7.0-11.0) fL Neut % (Auto) (16.0-70.0) % Lymph % (Auto) (9.0-44.0) % [place] % (Auto) (0.0-8.0) % Eos % (Auto) (0.0-4.0) % Baso % (Auto) (0.0-2.0) % Neut # (Auto) (1.8-7.7) th/mm3 Lymph # (Auto) (1.0-4.8) th/mm3 [place] # (Auto) (0.0-0.9) th/mm3 Eos # (Auto) (0.0-0.4) th/mm3 Baso # (Auto) (0.0-0.2) th/mm3 WBC Differential Differential Comment Sodium 136 (136-145) meq/L Potassium 4.1 D (3.5-5.1) meq/L Chloride 103 (98-107) meq/L Carbon Dioxide 26.6 (21.0-32.0) meq/L Anion Gap 6 (5-15) meq/L BUN 17 (7-18) mg/dL Creatinine 0.98 (0.60-1.30) mg/dL Estimated GFR 80 L (>89) mL/min POC Glucose 177 H 222 H (68-110) mg/dl Random Glucose 176 H D (74-106) mg/dL Calcium 8.0 L D (8.5-10.1) mg/dL Total Bilirubin 0.6 (0.2-1.0) mg/dL AST 24 (15-37) U/L ALT 34 (12-78) U/L Alkaline Phosphatase 201 H (45-117) U/L Total Protein 6.5 (6.4-8.2) g/dL Albumin 2.6 L (3.4-5.0) g/dL 12/22/17 12/22/17 12/23/17 Range/Units 17:32 21:42 08:08 WBC (4.0-11.0) th/mm3 RBC (4.50-5.90) mil/mm3 Hgb (13.0-17.0) gm/dL Hct (39.0-51.0) % MCV (80.0-100.0) fL MCH (27.0-34.0) pg MCHC (32.0-36.0) % RDW (11.6-17.2) % Plt Count (150-450) th/mm3 MPV (7.0-11.0) fL Neut % (Auto) (16.0-70.0) % Lymph % (Auto) (9.0-44.0) % [place] % (Auto) (0.0-8.0) % Eos % (Auto) (0.0-4.0) % Baso % (Auto) (0.0-2.0) % Neut # (Auto) (1.8-7.7) th/mm3 Lymph # (Auto) (1.0-4.8) th/mm3 [place] # (Auto) (0.0-0.9) th/mm3 Eos # (Auto) (0.0-0.4) th/mm3 Baso # (Auto) (0.0-0.2) th/mm3 WBC Differential Differential Comment Sodium (136-145) meq/L Potassium (3.5-5.1) meq/L Chloride (98-107) meq/L Carbon Dioxide (21.0-32.0) meq/L Anion Gap (5-15) meq/L BUN (7-18) mg/dL Creatinine (0.60-1.30) mg/dL Estimated GFR (>89) mL/min POC Glucose 180 H 180 H 139 H (68-110) mg/dl Random Glucose (74-106) mg/dL Calcium (8.5-10.1) mg/dL Total Bilirubin (0.2-1.0) mg/dL AST (15-37) U/L ALT (12-78) U/L Alkaline Phosphatase (45-117) U/L Total Protein (6.4-8.2) g/dL Albumin (3.4-5.0) g/dL 12/23/17 12/23/17 12/23/17 Range/Units 11:44 18:07 20:57 WBC (4.0-11.0) th/mm3 RBC (4.50-5.90) mil/mm3 Hgb (13.0-17.0) gm/dL Hct (39.0-51.0) % MCV (80.0-100.0) fL MCH (27.0-34.0) pg MCHC (32.0-36.0) % RDW (11.6-17.2) % Plt Count (150-450) th/mm3 MPV (7.0-11.0) fL Neut % (Auto) (16.0-70.0) % Lymph % (Auto) (9.0-44.0) % [place] % (Auto) (0.0-8.0) % Eos % (Auto) (0.0-4.0) % Baso % (Auto) (0.0-2.0) % Neut # (Auto) (1.8-7.7) th/mm3 Lymph # (Auto) (1.0-4.8) th/mm3 [place] # (Auto) (0.0-0.9) th/mm3 Eos # (Auto) (0.0-0.4) th/mm3 Baso # (Auto) (0.0-0.2) th/mm3 WBC Differential Differential Comment Sodium (136-145) meq/L Potassium (3.5-5.1) meq/L Chloride (98-107) meq/L Carbon Dioxide (21.0-32.0) meq/L Anion Gap (5-15) meq/L BUN (7-18) mg/dL Creatinine (0.60-1.30) mg/dL Estimated GFR (>89) mL/min POC Glucose 225 H 177 H 250 H (68-110) mg/dl Random Glucose (74-106) mg/dL Calcium (8.5-10.1) mg/dL Total Bilirubin (0.2-1.0) mg/dL AST (15-37) U/L ALT (12-78) U/L Alkaline Phosphatase (45-117) U/L Total Protein (6.4-8.2) g/dL Albumin (3.4-5.0) g/dL Discharge Plan Discharge Disposition Patient Disposition: 30 Still Patient Physicians Team ED Provider: Sourav Muro Primary Care Provider: Smiley Louie, Attending Provider: Travis Marina Other Providers: Krystina Hidalgo [place] Status ED Status: Left Department Discharge Information Discharge Date/Time: 12/21/17 01:00
[2017-12-21] MEDS ORDERED: Dextrose 50% in Water 50 ML Vial IV.PUSH PRN (00:03)
[2017-12-21] MEDS ORDERED: Bisacodyl 10 MG Supp RECTAL PRN (00:04)
[2017-12-21] MEDS ORDERED: Acetaminophen 325 MG Tablet PO PRN (00:04)
[2017-12-21] MEDS ORDERED: Morphine Sulfate Inj 2 MG/ML Vial IV.PUSH PRN (00:05)
[2017-12-21] MEDS: Sod Chloride 0.9% Inj 1,000 ML IV.CONT SCH ×3 (00:15→22:20)
[2017-12-21] MEDS: Morphine Inj 4 MG/ML Vial IV.PUSH PRN ×3 (00:48→22:40)
--- NOTE | 2017-12-21 00:54 | P.HPIM ---
History of Present Illness Primary Care Physician: Smiley Louie History of Present Illness: This is a 52-year-old male with a PMH of HTN, DM, PVD and h/o Left BKA who was sent to the ER by Orthopedist for admission and surgical intervention in am. Pt states he was admitted to the hospital in [place] for left foot infection, underwent multiple surgeries for non-healing foot infection and ultimately had Left BKA on . Returned to [facility] after surgery and was seen in ER on 12/12/17 after fall, states he thought his leg was still there and tried to step with it and which time he fell, wound noted to be intact and was d /c'd home. Had second fall and was seen in ER again on 12/18/17, noted to have some wound dehiscence but no purulent drainage and referred to Orthopedic Surgery as outpatient. Seen in office today and referred to the ER for admission and surgical intervention by Dr. Hidalgo in am. Was prescribed Bactrim and Keflex which he started today. Denies fever or chills. No significant pain complaints. On arrival, BP 124/76, HR 100, O2 sat 98% on RA, Afebrile. CBC unremarkable. Creatinine 1.35, no previous labs for comparison. - Diagnosis (1) Post op infection (2) DM (diabetes mellitus) (3) Renal insufficiency Inpatient Certification: I certify that the inpatient services were ordered in accordance with Medicare regulations governing the order. This includes certification that hospital inpatient services are reasonable and necessary and in the case of services not specified as inpatient-only under 42 CFR 419.22(n), that they are appropriately provided as inpatient services in accordance to with the 2-midnight benchmark under 43 CFR 412.3(e) Estimated Total Length of Stay (Days): 2 Plans for Post Hospital Care: Not yet determined Review of Systems PAST FAMILY HISTORY: Reviewed. No h/o DM or CAD All other systems reviewed negative except as stated in HPI PMFSH - History History Provided By: Patient - Medical History Medical History: Medical History (Last Reviewed 12/20/17 @ 23:58 by Sourav Muro MD) Amputated toe of right foot DVT (deep venous thrombosis) Diabetes Hypertension Kidney stone - Surgical History Surgical History: Surgical History (Last Reviewed 12/20/17 @ 23:58 by Sourav Muro MD) Amputated below knee - Tobacco History Second Hand Smoke Exposure: No Tobacco Use In Past 30 Days: No Smoking Status: Former smoker - Alcohol History How Often Do You Have a Drink Containing Alcohol: Never - Substance Use History Substance History: No History of Abuse - Substance Use Type Marijuana Route Used: Inhalation Reason for Use: Calm Down - Travel History Recent Travel in the [place] Within the Last 8 Weeks: No Recent Travel Out of the Country Within the Last 8 Weeks: No - Immunization History Tetanus Immunization: <5 Years Tetanus Immunization Year if Known: 2014 Medications and Allergies Active Medications: Active Medications Acetaminophen (Tylenol) 650 mg PO Q4H PRN PRN Reason: Temp > 100.4 Hydrocodone Bitart/Acetaminophen ([place] 5/325) 1 tab PO Q4H PRN PRN Reason: PAIN 3-5 Al Hydroxide/Mg Hydroxide (Milk Of Magnesia Liq) 30 ml PO Q12H PRN PRN Reason: Mild Constipation Amlodipine Besylate (Norvasc) 5 mg PO DAILY RENAN Bisacodyl (Dulcolax Supp) 10 mg RECTAL DAILY PRN PRN Reason: SEVERE CONSITIPATION Dextrose (D50w Vial) 50 ml IV.PUSH UNSCH PRN PRN Reason: PER HYPOGLYCEMIA PROTOCOL Glucagon (Glucagon Inj) 1 mg OTHER PRN PRN PRN Reason: for Hypoglycemia Protocol Clindamycin/Sodium Chloride (Cleocin 900 Mg/Ns Premix) 900 mg in 50 mls @ 100 mls/hr IV.SIG Q8H RENAN Sodium Chloride (Ns Inj) 1,000 mls @ 100 mls/hr IV.CONT .Q10H RENAN Last Admin: 12/21/17 00:15 Dose: 100 mls/hr Insulin Aspart (Novolog Insulin Correctional Sugar Inj) 0 unit SQ ACHS RENAN; Protocol Lactulose (Lactulose Liq) 30 ml PO DAILY PRN PRN Reason: SEVERE CONSITIPATION Morphine Sulfate (Morphine Inj) 2 mg IV.PUSH Q4H PRN PRN Reason: PAIN 6-10 Ondansetron HCl (Zofran Inj) 4 mg IV.PUSH Q6H PRN PRN Reason: NAUSEA OR VOMITING Senna/Docusate Sodium (Hailey-Colace) 1 tab PO BID RENAN Sennosides (Senokot) 17.2 mg PO Q12H PRN PRN Reason: Moderate Constipation Allergies Allergy/AdvReac Type Severity Reaction Status Date / Time ampicillin Allergy Severe Hives Verified 12/18/17 21:48 Penicillins Allergy Mild Hives Verified 12/18/17 21:48 vancomycin Allergy Mild Hives Verified 12/18/17 21:48 *MDRO Multi-Drug Resistant AdvReac Unknown NONE Uncoded 12/12/17 12:07 Organism Home Medications Medication Instructions Recorded Confirmed Type amlodipine 5 mg PO DAILY 12/12/17 12/20/17 History lisinopril 20 mg PO DAILY 12/12/17 12/20/17 History metformin 500 mg PO BID 12/12/17 12/20/17 History Exam Vital signs: Vital Signs 12/20/17 20:31 12/20/17 21:41 Temperature 98.3 F Pulse Rate 100 H 90 Respiratory Rate 18 18 Blood Pressure 124/76 115/67 Pulse Oximetry 98 100 Intake & Output 12/20/17 12/20/17 12/21/17 06:59 18:59 06:59 Intake Total 130 / 130 Balance 130 / 130 Weight 72.575 kg Intake: IV 130 / 130 NS Inj 1,000 ML @ 100 mls/hr IV 130 / 130 .CONT .Q10H [facility] Rx#:[id number] Narrative: PE: GENERAL: Pleasant middle-aged white male in no acute distress. SKIN: Focused skin assessment warm and dry. HEENT: PERRLA, EOMI. No scleral icterus or conjunctival pallor. No lid lag or facial droop. CARDIOVASCULAR: Regular rate and rhythm. No obvious murmurs to auscultation. No chest tenderness to palpation. RESPIRATORY: No obvious rhonchi or wheezing. Clear to auscultation. Breath sounds equal bilaterally. GASTROINTESTINAL: Abdomen soft, non-tender, nondistended. BS normal. MUSCULOSKELETAL: Extremities without clubbing, cyanosis, or edema. No obvious deformities. Left stump w/ cat, central wound dehiscence w/ some purulent drainage, mild erythema. NEUROLOGICAL: Awake, alert and oriented x4. No focal neurologic deficits. Moving both upper and lower extremities spontaneously. PSYCHIATRIC: Appropriate mood and affect. Insight and judgment normal. Results - Labs CBC & Chem 7: 12/20/17 22:08 12/20/17 22:08 Labs: Short CBC 12/20/17 Range/Units 22:08 WBC 8.4 (4.0-11.0) th/mm3 Hgb 10.5 L (13.0-17.0) gm/dL Hct 31.6 L (39.0-51.0) % Plt Count 249 (150-450) th/mm3 [facility] 12/20/17 22:08 Sodium 135 L Potassium 4.9 Chloride 101 Carbon Dioxide 27.8 BUN 33 H Creatinine 1.35 H Calcium 9.1 Caprini VTE Risk Assessment Caprini VTE Risk Assessment: No/Low Risk (score <= 1) VTE Mechanical Exception: LE injury/wound Caprini Risk Assessment Model: Point Value = 1 Point Value = 2 Point Value = 3 Point Value = 5 Age 41-60 Minor surgery BMI > 25 kg/m2 Swollen legs Varicose veins or History of unexplained or recurrent spontaneous Oral contraceptives or hormone replacement Sepsis (< 1 month) Serious lung disease, including pneumonia (< 1 month) Abnormal pulmonary function Acute myocardial infarction Congestive heart failure (< 1 month) History of inflammatory bowel disease Medical patient at bed rest Age 61-74 Arthroscopic surgery Major open surgery (> 45 min) Laparoscopic surgery (> 45 min) Malignancy Confined to bed (> 72 hours) Immobilizing plaster cast Central venous access Age >= 75 History of VTE Family history of VTE Factor V Leiden Prothrombin [id number] Lupus anticoagulant Anticardiolipin antibodies Elevated serum homocysteine Heparin-induced thrombocytopenia Other congenital or acquired thrombophilia Stroke (< 1 month) Elective arthroplasty Hip, pelvis, or leg fracture Acute spinal cord injury (< 1 month) Prophylaxis Regimen: Total Risk Factor Score Risk Level Prophylaxis Regimen 0-1 Low Early ambulation 2 Moderate Order ONE of the following: *Sequential Compression Device (SCD) *Heparin 5000 units SQ BID 3-4 Higher Order ONE of the following medications: *Heparin 5000 units SQ TID *Enoxaparin/Lovenox 40 mg SQ daily (WT < 150 kg, CrCl > 30 mL/min) *Enoxaparin/Lovenox 30 mg SQ daily (WT < 150 kg, CrCl > 10-29 mL/min) *Enoxaparin/Lovenox 30 mg SQ BID (WT < 150 kg, CrCl > 30 mL/min) AND/OR *Sequential Compression Device (SCD) 5 or more Highest Order ONE of the following medications: *Heparin 5000 units SQ TID (Preferred with Epidurals) *Enoxaparin/Lovenox 40 mg SQ daily (WT < 150 kg, CrCl > 30 mL/min) *Enoxaparin/Lovenox 30 mg SQ daily (WT < 150 kg, CrCl > 10-29 mL/min) *Enoxaparin/Lovenox 30 mg SQ BID (WT < 150 kg, CrCl > 30 mL/min) AND *Sequential Compression Device (SCD) Assessment and Plan - Assessment (1) Post op infection Code(s): T81.40XA - Infection following a procedure, unspecified, initial encounter Status: Acute (2) DM (diabetes mellitus) Code(s): E11.9 - Type 2 diabetes mellitus without complications Status: Acute (3) Renal insufficiency Code(s): N28.9 - Disorder of kidney and ureter, unspecified Status: Acute - Plan A/P: 1. Post Op Infection: s/p Left BKA in [place], s/p fall w/ injury to stump , +wound dehiscence and purulent drainage, seen in Orthopedic office today, referred to ER for admission and surgical intervention w/ Dr. Hidalgo in am. NPO , IVF, analgesics/antiemetics as needed. Clinda IV. Wound Management. 2. DM: Sliding scale w/ Accu-Cheks. Hold Metformin for now 3. WHIT: Creatinine 1.35, no previous labs for comparison, IVF for hydration, monitor I/O, repeat labs in am. 4. DVT Prophylaxis: Mechanical contraindication due to BKA 5. Social work for d/c planning as needed. 6. Case discussed w/ ER physician at length, labs/records/imaging reviewed by me.
[2017-12-21] MEDS: Clindamycin 900 mg/NS Premix 900 MG/50 ML PIGGYBACK IV.SIG SCH ×2 (02:03→08:26)
[2017-12-21] MEDS ORDERED: Lidocaine PF 1% Inj 5 ML Syringe OTHER ONE (08:15)
[2017-12-21] MEDS ORDERED: Ketorolac Inj 30 MG/ML (IVP) Vial IV.PUSH ONE (08:15)
--- NOTE | 2017-12-21 08:17 | P.CONOP ---
[facility] Orthopedics Consult Note - [facility] Consult date: 12/21/17 Chief complaint: status post Left BKA, postoperative wound infectio Narrative: This is a 52-year-old male with a PMH of HTN, DM, PVD and h/o Left BKA who presents to ED after wound dehiscence from a left BKA. Pt states he was admitted to the hospital in [place] for left foot infection, underwent multiple surgeries for non-healing foot infection and ultimately had Left BKA on . Returned to [facility] after surgery and was seen in ER on 12/12/17 after fall, states he thought his leg was still there and tried to step with it and which time he fell, wound noted to be intact and was d/c'd home. Had second fall and was seen in ER again on 12/18/17, noted to have some wound dehiscence but no purulent drainage and referred to Orthopedic Surgery as outpatient. Seen in office today and referred to the ER for admission and surgical intervention. He denies any significant drainage. He states the wound open after he fell on it. He denies any fevers, chills, nausea or vomiting. Denies any head trauma or other extremity injury Review of Systems Denies fevers, chills, nausea, vomiting, chest pain, cough, throat pain, blurry vision, shortness of breath, chest or abdominal pain, back pain, weakness, numbness or tingling, change in urination Reports left stump wound dehiscence but denies any significant drainage. PMFSH - History History Provided By: Patient - Medical History Medical History: Medical History (Last Reviewed 12/20/17 @ 23:58 by Sourav Muro MD) Amputated toe of right foot DVT (deep venous thrombosis) Diabetes Hypertension Kidney stone - Surgical History Surgical History: Surgical History (Last Reviewed 12/20/17 @ 23:58 by Sourav Muro MD) Amputated below knee - Tobacco History Second Hand Smoke Exposure: Yes Tobacco Use In Past 30 Days: No (quit 10 years ago) Smoking Status: Former smoker Tobacco Type: Cigarettes - Alcohol History How Often Do You Have a Drink Containing Alcohol: Never - Substance Use History Substance History: Active Abuse - Substance Use Type Marijuana Status: Active Route Used: Inhalation Frequency: daily Reason for Use: Calm Down - Travel History Recent Travel in the [facility] Within the Last 8 Weeks: No Recent Travel Out of the Country Within the Last 8 Weeks: No - Immunization History Tetanus Immunization: <5 Years Tetanus Immunization Year if Known: 2014 Medications and Allergies Active Medications: Active Medications Acetaminophen (Tylenol) 650 mg PO Q4H PRN PRN Reason: Temp > 100.4 Hydrocodone Bitart/Acetaminophen ([place] 5/325) 1 tab PO Q4H PRN PRN Reason: PAIN 3-5 Last Admin: 12/21/17 00:50 Dose: 1 tab Al Hydroxide/Mg Hydroxide (Milk Of Magnesia Liq) 30 ml PO Q12H PRN PRN Reason: Mild Constipation Amlodipine Besylate (Norvasc) 5 mg PO DAILY RENAN Bisacodyl (Dulcolax Supp) 10 mg RECTAL DAILY PRN PRN Reason: SEVERE CONSITIPATION Dextrose (D50w Vial) 50 ml IV.PUSH UNSCH PRN PRN Reason: PER HYPOGLYCEMIA PROTOCOL Glucagon (Glucagon Inj) 1 mg OTHER PRN PRN PRN Reason: for Hypoglycemia Protocol Clindamycin/Sodium Chloride (Cleocin 900 Mg/Ns Premix) 900 mg in 50 mls @ 100 mls/hr IV.SIG Q8H [facility] Last Infusion: 12/21/17 02:33 Dose: Infused Sodium Chloride (Ns Inj) 1,000 mls @ 100 mls/hr IV.CONT .Q10H [facility] Last Admin: 12/21/17 00:15 Dose: 100 mls/hr Insulin Aspart (Novolog Insulin Correctional Sugar Inj) 0 unit SQ ACHS [facility]; Protocol Lactulose (Lactulose Liq) 30 ml PO DAILY PRN PRN Reason: SEVERE CONSITIPATION Morphine Sulfate (Morphine Inj) 2 mg IV.PUSH Q4H PRN PRN Reason: PAIN 6-10 Last Admin: 12/21/17 00:48 Dose: 2 mg Ondansetron HCl (Zofran Inj) 4 mg IV.PUSH Q6H PRN PRN Reason: NAUSEA OR VOMITING Senna/Docusate Sodium (Hailey-Colace) 1 tab PO BID RENAN Sennosides (Senokot) 17.2 mg PO Q12H PRN PRN Reason: Moderate Constipation Allergies Allergy/AdvReac Type Severity Reaction Status Date / Time ampicillin Allergy Severe Hives Verified 12/18/17 21:48 Penicillins Allergy Mild Hives Verified 12/18/17 21:48 vancomycin Allergy Mild Hives Verified 12/18/17 21:48 *MDRO Multi-Drug Resistant AdvReac Unknown NONE Uncoded 12/12/17 12:07 Organism Home Medications Medication Instructions Recorded Confirmed Type amlodipine 5 mg PO DAILY 12/12/17 12/20/17 History lisinopril 20 mg PO DAILY 12/12/17 12/20/17 History metformin 500 mg PO BID 12/12/17 12/20/17 History Exam Vital signs: Vital Signs 12/20/17 20:31 12/20/17 21:41 12/21/17 01:10 Temperature 98.3 F 97.9 F Pulse Rate 100 H 90 80 Respiratory Rate 18 18 17 Blood Pressure 124/76 115/67 149/76 H Pulse Oximetry 98 100 98 Intake & Output 12/20/17 12/21/17 12/21/17 18:59 06:59 18:59 Intake Total 180 / 180 Output Total 250 / 250 Balance -70 / -70 Weight 72.6 kg Intake: IV 180 / 180 NS Inj 1,000 ML @ 100 mls/hr IV 130 / 130 .CONT .Q10H [facility] Rx#:[id number] Cleocin 900 mg/NS Premix 900 mg 50 / 50 In 50 ml @ 100 mls/hr IV.SIG Q8H [facility] Rx#:[id number] Oral 0 / 0 Output: Urine 250 / 250 Other: Weight On Admission 72.6 kg Narrative: Awake, alert, no acute distress Normocephalic Pupils equal No JVD Moist mucous membranes Soft nontender abdomen Regular rate Nonlabored respirations Left lower extremity: Low knee amputation stump with dressing in place. There is minimal erythema or edema noted. There is no significant foul odor. There is a large dehiscence in the central aspect of incision. Remaining cat remain in place. This does appear to probe to bone. There is some serosanguineous drainage, question of purulence. Bilateral upper extremities and right lower extremity: No significant tenderness to palpation, deformities or signs of infection. Full active range of motion and strength throughout. Brisk cap refill. Normal affect No rash Results - Labs Result Diagrams: 12/20/17 22:08 12/20/17 22:08 Labs: Laboratory Results - last 24 hr 12/20/17 12/20/17 12/20/17 22:00 22:08 22:08 WBC 8.4 RBC 3.77 L Hgb 10.5 L Hct 31.6 L MCV 83.7 MCH 27.8 MCHC 33.2 RDW 15.9 Plt Count 249 MPV 8.1 Neut % (Auto) 69.1 Lymph % (Auto) 19.5 Sac % (Auto) 7.2 Eos % (Auto) 3.5 Baso % (Auto) 0.7 Neut # (Auto) 5.8 Lymph # (Auto) 1.6 Sac # (Auto) 0.6 Eos # (Auto) 0.3 Baso # (Auto) 0.1 WBC Differential . Differential Comment Auto diff final Sodium 135 L Potassium 4.9 Chloride 101 Carbon Dioxide 27.8 Anion Gap 6 BUN 33 H Creatinine 1.35 H Estimated GFR 55 L POC Glucose 327 H Random Glucose 322 H Calcium 9.1 12/21/17 07:35 WBC RBC Hgb Hct MCV MCH MCHC RDW Plt Count MPV Neut % (Auto) Lymph % (Auto) Sac % (Auto) Eos % (Auto) Baso % (Auto) Neut # (Auto) Lymph # (Auto) Sac # (Auto) Eos # (Auto) Baso # (Auto) WBC Differential Differential Comment Sodium Potassium Chloride Carbon Dioxide Anion Gap BUN Creatinine Estimated GFR POC Glucose 139 H Random Glucose Calcium Assessment and Plan - Assessment and Plan 52-year-old gentleman now approximately 2 weeks status post left BKA at outside facility with wound dehiscence and question of purulence Options of management were discussed with the patient. Given the large area of wound dehiscence and concern for purulence, I would recommend surgical intervention in the form of irrigation and debridement of his left below-knee amputation with possible revision amputation. I discussed with the patient that should I not be able to fully close his tissues I may have to shorten his stump. I did also discuss that should the infection be deep and highly concerning, I may recommend a secondary surgery and at that time I would likely place a VAC instead of closure at today's surgery. I did discuss with the patient my concerns regarding using cat to close his incision and therefore I did discuss that should his incision be closed today it will be with sutures. I discussed with the patient fall prevention as he has fallen twice in the last 2 weeks after his amputation. Risks of surgery, including but not limited to: Persistent infection, recurrent wound issues and/or dehiscence, knee pain and/or stiffness, possible need for further surgery, neuroma or phantom limb pain, and other unforeseen comp occasions were all discussed with the patient. At this time he has consented to the above-mentioned procedure. Patient has been n.p.o. since midnight for plan for surgery today. Postoperative course was discussed with the patient. Given the wound dehiscence and concern for infection, I do believe it is important that the patient have at least a couple of days of IV antibiotics.
[2017-12-21] MEDS ORDERED: Post-op Orders (for Pharmacy) OTHER STA (09:35)
--- NOTE | 2017-12-21 09:35 | P.BOP ---
Date of procedure: 12/21/17 Procedure: 1. I&D left below-knee amputation wound dehiscence 2. Left below-knee amputation revision with closure of wound dehiscence Anesthesia: GETA Surgeon: Krystina Hidalgo MD Estimated blood loss (mL): 50 Pathology: other (Culture sent to microbiology) Condition: stable Disposition: PACU
[2017-12-21] MEDS ORDERED: *Meperidine Inj 25 MG/ML Vial PERIprocedural Use ONLY ONE (09:42)
[2017-12-21] MEDS ORDERED: fentaNYL Citrate Inj 100 MCG/2 ML Ampul ONE (09:47)
[2017-12-21] MEDS ORDERED: *morphine SULFATE 10 MG/ML PERIprocedure ONLY ONE (09:48)
[2017-12-21] MEDS ORDERED: *HYDROmorphone PF Inj 1 MG/ML Ampul PERIprocedural Use ONLY ONE (09:55)
[2017-12-21] MEDS ORDERED: *morphine SULFATE 4 MG/ML PERIprocedure ONLY ONE (10:11)
[2017-12-21] MEDS: amLODIPine 5 MG Tablet PO SCH (11:17)
[2017-12-21] MEDS: Senna/Docusate Sodium 8.6/50 MG Tablet PO SCH ×2 (11:17→20:07)
[2017-12-21] MEDS: Insulin NovoLOG Aspart Correctional Sugar Inj SQ SCH ×4 (11:20→20:07)
--- NOTE | 2017-12-21 12:46 | ECG ---
Date Performed: 12/21/2017 Time Performed: 08:04:06 PTAGE: 52 years EKG: Sinus rhythm NORMAL ECG NO PREVIOUS TRACING DOCTOR: Toi Loco Interpretating Date/Time 12/21/2017 12:45:18
--- NOTE | 2017-12-21 14:20 | P.PN ---
Subjective Interval history: Nursing denies any deterioration since last night. Patient looking forward to a quick discharge. Is currently postop. Physical Exam Vital signs: Vital Signs 12/20/17 20:31 12/20/17 21:41 12/21/17 01:10 Temperature 98.3 F 97.9 F Pulse Rate 100 H 90 80 Respiratory Rate 18 18 17 Blood Pressure 124/76 115/67 149/76 H Pulse Oximetry 98 100 98 12/21/17 08:00 12/21/17 09:41 12/21/17 09:45 Temperature 97.4 F L Pulse Rate 83 88 86 Respiratory Rate 17 22 12 Blood Pressure 150/81 H 159/74 H Pulse Oximetry 99 100 100 12/21/17 09:54 12/21/17 10:00 12/21/17 10:04 Temperature Pulse Rate 82 83 Respiratory Rate 15 22 19 Blood Pressure 166/79 H 156/69 H Pulse Oximetry 100 100 12/21/17 10:15 12/21/17 10:30 12/21/17 12:00 Temperature 97.3 F L Pulse Rate 84 76 82 Respiratory Rate 14 9 L 17 Blood Pressure 169/86 H 160/79 H 176/85 H Pulse Oximetry 100 100 100 Intake & Output 12/20/17 12/21/17 12/21/17 18:59 06:59 18:59 Intake Total 180 / 180 1050 / 1050 Output Total 250 / 250 Balance -70 / -70 1050 / 1050 Weight 72.6 kg Intake: IV 180 / 180 1050 / 1050 NS Inj 1,000 ML @ 100 mls/hr IV 130 / 130 1000 / 1000 .CONT .Q10H [facility] Rx#:[id number] Cleocin 900 mg/NS Premix 900 mg 50 / 50 50 / 50 In 50 ml @ 100 mls/hr IV.SIG Q8H [facility] Rx#:[id number] Oral 0 / 0 Output: Urine 250 / 250 Other: Weight On Admission 72.6 kg Narrative: Left lower extremity in AKA postop dressing with drain Unlabored breathing, no acute distress, awake and alert Results - Labs CBC & Chem 7: 12/20/17 22:08 12/20/17 22:08 Laboratory Results - last 24 hr 12/20/17 12/20/17 12/20/17 22:00 22:08 22:08 WBC 8.4 RBC 3.77 L Hgb 10.5 L Hct 31.6 L MCV 83.7 MCH 27.8 MCHC 33.2 RDW 15.9 Plt Count 249 MPV 8.1 Neut % (Auto) 69.1 Lymph % (Auto) 19.5 [place] % (Auto) 7.2 Eos % (Auto) 3.5 Baso % (Auto) 0.7 Neut # (Auto) 5.8 Lymph # (Auto) 1.6 [place] # (Auto) 0.6 Eos # (Auto) 0.3 Baso # (Auto) 0.1 WBC Differential . Differential Comment Auto diff final Sodium 135 L Potassium 4.9 Chloride 101 Carbon Dioxide 27.8 Anion Gap 6 BUN 33 H Creatinine 1.35 H Estimated GFR 55 L POC Glucose 327 H Random Glucose 322 H Calcium 9.1 12/21/17 12/21/17 12/21/17 07:35 09:52 12:09 WBC RBC Hgb Hct MCV MCH MCHC RDW Plt Count MPV Neut % (Auto) Lymph % (Auto) [place] % (Auto) Eos % (Auto) Baso % (Auto) Neut # (Auto) Lymph # (Auto) [place] # (Auto) Eos # (Auto) Baso # (Auto) WBC Differential Differential Comment Sodium Potassium Chloride Carbon Dioxide Anion Gap BUN Creatinine Estimated GFR POC Glucose 139 H 139 H 185 H Random Glucose Calcium Microbiology 12/20/17 22:44 Blood - Line Aerobic Blood Culture - Preliminary No growth in 1 day 12/20/17 22:44 Blood - Line Anaerobic Blood Culture - Preliminary No growth in 1 day 12/20/17 22:38 Blood - Line Aerobic Blood Culture - Preliminary No growth in 1 day 12/20/17 22:38 Blood - Line Anaerobic Blood Culture - Preliminary No growth in 1 day 12/20/17 22:08 Wound - Leg Gram Stain - Final Assessment and Plan - Assessment (1) Post op infection Code(s): T81.40XA - Infection following a procedure, unspecified, initial encounter Status: Acute (2) DM (diabetes mellitus) Code(s): E11.9 - Type 2 diabetes mellitus without complications Status: Acute (3) Renal insufficiency Code(s): N28.9 - Disorder of kidney and ureter, unspecified Status: Acute - Plan 52-year-old white male admitted for wound dehiscence of a left BKA 1. Post Op Infection: s/p Left BKA in [place], s/p fall w/ injury to stump , -now s/p I&D left below-knee amputation wound dehiscence and amputation revision with closure of wound dehiscence -Follow-up wound culture -Continue IV clindamycin 2. DM: Sliding scale w/ Accu-Cheks. Hold Metformin for now 3. WHIT: Continue IV fluids, recheck Lovenox when cleared w/ surgery
[2017-12-21] MEDS: Clindamycin 600 mg/NS Premix 600 MG/50 ML PIGGYBACK IV.SIG SCH ×2 (16:33→23:45)
[2017-12-21] MEDS ORDERED: oxyCODONE/Acetaminophen 10/325 Tablet PO ONE (19:45)
[2017-12-22] MEDS: Morphine Inj 4 MG/ML Vial IV.PUSH PRN ×4 (02:45→23:46)
[2017-12-22 07:46] LABS: Baso # (Auto) 0.1 th/mm3 (0.0-0.2); Baso % (Auto) 0.6 % (0.0-2.0); Eos # (Auto) 0.3 th/mm3 (0.0-0.4); Eos % (Auto) 3.3 % (0.0-4.0); Hematocrit 30.9 % (39.0-51.0); Hemoglobin 10.4 gm/dL (13.0-17.0); Lymph # (Auto) 1.3 th/mm3 (1.0-4.8); Lymph % (Auto) 14.4 % (9.0-44.0); Mean Corpuscular HGB Conc 33.5 % (32.0-36.0); Mean Corpuscular Hemoglobin 28.2 pg (27.0-34.0); Mean Corpuscular Volume 84.2 fL (80.0-100.0); Mean Platelet Volume 8.2 fL (7.0-11.0); Mono # (Auto) 0.7 th/mm3 (0.0-0.9); Mono % (Auto) 8.3 % (0.0-8.0); Neut # (Auto) 6.5 th/mm3 (1.8-7.7); Neut % (Auto) 73.4 % (16.0-70.0); Platelet Count 223 th/mm3 (150-450); Red Blood Count 3.67 mil/mm3 (4.50-5.90); Red Cell Distribution Width 15.7 % (11.6-17.2); White Blood Count 8.9 th/mm3 (4.0-11.0)
--- NOTE | 2017-12-22 08:00 | P.PNOP ---
Subjective Interval history: Resting comfortably. Pain well controlled Physical Exam Vital signs: Vital Signs 12/21/17 08:00 12/21/17 09:41 12/21/17 09:45 Temperature 97.4 F L Pulse Rate 83 88 86 Respiratory Rate 17 22 12 Blood Pressure 150/81 H 159/74 H Pulse Oximetry 99 100 100 12/21/17 09:54 12/21/17 10:00 12/21/17 10:04 Temperature Pulse Rate 82 83 Respiratory Rate 15 22 19 Blood Pressure 166/79 H 156/69 H Pulse Oximetry 100 100 12/21/17 10:15 12/21/17 10:30 12/21/17 12:00 Temperature 97.3 F L Pulse Rate 84 76 82 Respiratory Rate 14 9 L 17 Blood Pressure 169/86 H 160/79 H 176/85 H Pulse Oximetry 100 100 100 12/21/17 16:00 12/21/17 20:00 12/21/17 22:20 Temperature 97.3 F L 98.2 F Pulse Rate 80 98 H Respiratory Rate 17 20 18 Blood Pressure 139/70 196/95 H Pulse Oximetry 99 99 12/21/17 22:42 12/22/17 00:00 12/22/17 04:00 Temperature 98.7 F 99.0 F Pulse Rate 99 H 106 H Respiratory Rate 18 20 20 Blood Pressure 186/88 H 166/88 H Pulse Oximetry 97 96 Intake & Output 12/21/17 12/22/17 12/22/17 18:59 06:59 18:59 Intake Total 1999 / 1999 540 / 540 Output Total 50 / 50 800 / 800 Balance 1950 / 1950 -260 / -260 Weight 72.5 kg Intake: IV 1100 / 1100 100 / 100 NS Inj 1,000 ML @ 100 mls/hr IV 1000 / 1000 100 / 100 .CONT .Q10H [facility] Rx#:[id number] Cleocin 600 mg/NS Premix 600 mg 50 / 50 In 50 ml @ 100 mls/hr IV.SIG Q8H [facility] Rx#:[id number] Cleocin 900 mg/NS Premix 900 mg 50 / 50 In 50 ml @ 100 mls/hr IV.SIG Q8H [facility] Rx#:[id number] Oral 200 / 200 440 / 440 Anesthesia Amount 700 / 700 Output: Urine 800 / 800 Estimated Blood Loss 50 / 50 Other: # Voids 1 Date of Last Bowel Movement 12/20/17 Narrative: Awake, alert, NAD LLE: dressing in place, +HV, no significant drainage Results - Labs CBC & Chem 7: 12/22/17 07:10 12/20/17 22:08 Laboratory Results - last 24 hr 12/21/17 12/21/17 12/21/17 09:52 12:09 16:41 WBC RBC Hgb Hct MCV MCH MCHC RDW Plt Count MPV Neut % (Auto) Lymph % (Auto) [place] % (Auto) Eos % (Auto) Baso % (Auto) Neut # (Auto) Lymph # (Auto) [place] # (Auto) Eos # (Auto) Baso # (Auto) WBC Differential Differential Comment POC Glucose 139 H 185 H 153 H 12/21/17 12/22/17 12/22/17 19:58 07:10 07:53 WBC 8.9 RBC 3.67 L Hgb 10.4 L Hct 30.9 L MCV 84.2 MCH 28.2 MCHC 33.5 RDW 15.7 Plt Count 223 MPV 8.2 Neut % (Auto) 73.4 H Lymph % (Auto) 14.4 [place] % (Auto) 8.3 H Eos % (Auto) 3.3 Baso % (Auto) 0.6 Neut # (Auto) 6.5 Lymph # (Auto) 1.3 [place] # (Auto) 0.7 Eos # (Auto) 0.3 Baso # (Auto) 0.1 WBC Differential . Differential Comment Auto diff final POC Glucose 190 H 177 H Microbiology 12/20/17 22:44 Blood - Line Aerobic Blood Culture - Preliminary No growth in 1 day 12/20/17 22:44 Blood - Line Anaerobic Blood Culture - Preliminary No growth in 1 day 12/20/17 22:38 Blood - Line Aerobic Blood Culture - Preliminary No growth in 1 day 12/20/17 22:38 Blood - Line Anaerobic Blood Culture - Preliminary No growth in 1 day 12/20/17 22:08 Wound - Leg Gram Stain - Final Assessment and Plan - Assessment and Plan 52-year-old gentleman now approximately 2 weeks status post left BKA at outside facility, POD#1 s/p I&D, revision L BKA 1. NWB LLE. Dressing to remain in place until tomorrow. Then dressing and drain may be removed. No tape to be placed onto stump. 2. Cultures pending. Intraop, bone was exposed through wound dehiscence. Patient should have at least a couple of weeks of antibiotics. Would prefer patient remain in house until cultures return. 3. KI when in bed to prevent flexion contracture
[2017-12-22] MEDS: amLODIPine 5 MG Tablet PO SCH (08:27)
[2017-12-22] MEDS: Senna/Docusate Sodium 8.6/50 MG Tablet PO SCH ×2 (08:27→21:39)
[2017-12-22 08:28] LABS: Alanine Aminotransferase 34 U/L (12-78); Albumin 2.6 g/dL (3.4-5.0); Alkaline Phosphatase 201 U/L (45-117); Anion Gap 6 meq/L (5-15); Aspartate Aminotransferase 24 U/L (15-37); Blood Urea Nitrogen 17 mg/dL (7-18); Carbon Dioxide 26.6 meq/L (21.0-32.0); Chloride 103 meq/L (98-107); Glomerular Filtration Rate 80 mL/min (>89); Glucose,Random 176 mg/dL (74-106); Potassium 4.1 meq/L (3.5-5.1); Sodium 136 meq/L (136-145); Total Protein 6.5 g/dL (6.4-8.2)
[2017-12-22] MEDS: Clindamycin 600 mg/NS Premix 600 MG/50 ML PIGGYBACK IV.SIG SCH ×3 (08:28→23:45)
[2017-12-22] MEDS: Insulin NovoLOG Aspart Correctional Sugar Inj SQ SCH ×4 (08:40→21:49)
[2017-12-22] MEDS: Sod Chloride 0.9% Inj 1,000 ML IV.CONT SCH ×2 (09:56→21:50)
--- NOTE | 2017-12-22 12:42 | P.PN ---
Subjective Interval history: Nursing denies any deterioration since last night. Patient himself has no new complaints, is very eager to be discharged. Physical Exam Vital signs: Vital Signs 12/21/17 16:00 12/21/17 20:00 12/21/17 22:20 Temperature 97.3 F L 98.2 F Pulse Rate 80 98 H Respiratory Rate 17 20 18 Blood Pressure 139/70 196/95 H Pulse Oximetry 99 99 12/21/17 22:42 12/22/17 00:00 12/22/17 00:15 Temperature 98.7 F Pulse Rate 99 H Respiratory Rate 18 20 18 Blood Pressure 186/88 H Pulse Oximetry 97 12/22/17 02:47 12/22/17 04:00 12/22/17 04:20 Temperature 99.0 F Pulse Rate 106 H Respiratory Rate 17 20 17 Blood Pressure 166/88 H Pulse Oximetry 96 12/22/17 06:39 12/22/17 08:00 12/22/17 12:00 Temperature 97.9 F 98.2 F Pulse Rate 100 H 93 H Respiratory Rate 17 18 18 Blood Pressure 176/79 H 181/86 H Pulse Oximetry 98 98 Intake & Output 12/21/17 12/22/17 12/22/17 18:59 06:59 18:59 Intake Total 1999 / 1999 590 / 590 1050 / 1050 Output Total 50 / 50 2450 / 2450 Balance 1950 / 1950 -1860 / -1860 1050 / 1050 Weight 72.5 kg Intake: IV 1100 / 1100 150 / 150 1050 / 1050 NS Inj 1,000 ML @ 100 mls/hr IV 1000 / 1000 100 / 100 1000 / 1000 .CONT .Q10H [facility] Rx#:[id number] Cleocin 600 mg/NS Premix 600 mg 50 / 50 50 / 50 50 / 50 In 50 ml @ 100 mls/hr IV.SIG Q8H [facility] Rx#:[id number] Cleocin 900 mg/NS Premix 900 mg 50 / 50 In 50 ml @ 100 mls/hr IV.SIG Q8H [facility] Rx#:[id number] Oral 200 / 200 440 / 440 Anesthesia Amount 700 / 700 Output: Urine 2450 / 2450 Estimated Blood Loss 50 / 50 Other: # Voids 1 Date of Last Bowel Movement 12/20/17 Narrative: Left BKA stump in postoperative dressing, drain present No acute distress, unlabored breathing Clear lungs bilaterally Results - Labs CBC & Chem 7: 12/22/17 07:10 12/22/17 07:10 Laboratory Results - last 24 hr 12/21/17 12/21/17 12/22/17 16:41 19:58 07:10 WBC 8.9 RBC 3.67 L Hgb 10.4 L Hct 30.9 L MCV 84.2 MCH 28.2 MCHC 33.5 RDW 15.7 Plt Count 223 MPV 8.2 Neut % (Auto) 73.4 H Lymph % (Auto) 14.4 [place] % (Auto) 8.3 H Eos % (Auto) 3.3 Baso % (Auto) 0.6 Neut # (Auto) 6.5 Lymph # (Auto) 1.3 [place] # (Auto) 0.7 Eos # (Auto) 0.3 Baso # (Auto) 0.1 WBC Differential . Differential Comment Auto diff final Sodium Potassium Chloride Carbon Dioxide Anion Gap BUN Creatinine Estimated GFR POC Glucose 153 H 190 H Random Glucose Calcium Total Bilirubin AST ALT Alkaline Phosphatase Total Protein Albumin 12/22/17 12/22/17 12/22/17 07:10 07:53 11:52 WBC RBC Hgb Hct MCV MCH MCHC RDW Plt Count MPV Neut % (Auto) Lymph % (Auto) [place] % (Auto) Eos % (Auto) Baso % (Auto) Neut # (Auto) Lymph # (Auto) [place] # (Auto) Eos # (Auto) Baso # (Auto) WBC Differential Differential Comment Sodium 136 Potassium 4.1 D Chloride 103 Carbon Dioxide 26.6 Anion Gap 6 BUN 17 Creatinine 0.98 Estimated GFR 80 L POC Glucose 177 H 222 H Random Glucose 176 H D Calcium 8.0 L D Total Bilirubin 0.6 AST 24 ALT 34 Alkaline Phosphatase 201 H Total Protein 6.5 Albumin 2.6 L Microbiology 12/21/17 08:40 Wound - Other Fungal Smear - Final No fungal elements seen 12/21/17 08:40 Wound - Other Gram Stain - Final 12/20/17 22:44 Blood - Line Aerobic Blood Culture - Preliminary No growth in 2 days 12/20/17 22:44 Blood - Line Anaerobic Blood Culture - Preliminary No growth in 2 days 12/20/17 22:38 Blood - Line Aerobic Blood Culture - Preliminary No growth in 2 days 12/20/17 22:38 Blood - Line Anaerobic Blood Culture - Preliminary No growth in 2 days 12/20/17 22:08 Wound - Leg Gram Stain - Final Assessment and Plan - Assessment (1) Post op infection Code(s): T81.40XA - Infection following a procedure, unspecified, initial encounter Status: Acute (2) DM (diabetes mellitus) Code(s): E11.9 - Type 2 diabetes mellitus without complications Status: Acute (3) Renal insufficiency Code(s): N28.9 - Disorder of kidney and ureter, unspecified Status: Acute - Plan 52-year-old white male admitted for wound dehiscence of a left BKA. 1. Post Op Infection: s/p Left BKA in [place], s/p fall w/ injury to stump , -now s/p I&D left below-knee amputation wound dehiscence and amputation revision with closure of wound dehiscence -Follow-up wound culture -Continue IV clindamycin per orthopedics 2. DM: Sliding scale w/ Accu-Cheks. Hold Metformin for now 3. WHIT: Continue IV fluids, recheck Lovenox when cleared w/ surgery
[2017-12-22] MEDS: Enoxaparin Inj 30 MG/0.3 ML Syringe SQ SCH (15:08)
[2017-12-23] MEDS: Sod Chloride 0.9% Inj 1,000 ML IV.CONT SCH (07:00)
[2017-12-23] MEDS: Enoxaparin Inj 30 MG/0.3 ML Syringe SQ SCH (09:57)
[2017-12-23] MEDS: Clindamycin 600 mg/NS Premix 600 MG/50 ML PIGGYBACK IV.SIG SCH (09:57)
[2017-12-23] MEDS: amLODIPine 5 MG Tablet PO SCH (09:57)
[2017-12-23] MEDS: Senna/Docusate Sodium 8.6/50 MG Tablet PO SCH ×2 (09:58→20:47)
[2017-12-23] MEDS: Lisinopril 20 MG Tablet PO SCH (09:58)
[2017-12-23] MEDS: Insulin NovoLOG Aspart Correctional Sugar Inj SQ SCH ×4 (09:58→20:59)
--- NOTE | 2017-12-23 14:11 | P.PN ---
Subjective Interval history: Nursing denies any deterioration since last night. Patient himself has no complaints, wants to get out of here. Says he is trying to extend his leg stump as much as he can. Physical Exam Vital signs: Vital Signs 12/22/17 16:00 12/22/17 19:41 12/22/17 20:00 Temperature 98.0 F 98 F Pulse Rate 91 H 99 H Respiratory Rate 18 17 18 Blood Pressure 153/75 H 170/80 H Pulse Oximetry 98 99 12/22/17 22:09 12/22/17 23:48 12/23/17 00:00 Temperature 98.7 F Pulse Rate 17 L Respiratory Rate 17 18 Blood Pressure 178/85 H Pulse Oximetry 98 12/23/17 03:55 12/23/17 04:00 12/23/17 08:00 Temperature 98.3 F 97.8 F Pulse Rate 90 86 Respiratory Rate 18 17 18 Blood Pressure 167/81 H 170/81 H Pulse Oximetry 96 98 12/23/17 12:00 Temperature 99.4 F Pulse Rate 97 H Respiratory Rate 18 Blood Pressure 162/75 H Pulse Oximetry 99 Intake & Output 12/22/17 12/23/17 12/23/17 18:59 06:59 18:59 Intake Total 1460 / 1460 1050 / 1050 1050 / 1050 Output Total 1600 / 1600 550 / 550 Balance -140 / -140 1050 / 1050 500 / 500 Weight 105.2 kg Intake: IV 1100 / 1100 1050 / 1050 1050 / 1050 NS Inj 1,000 ML @ 100 mls/hr IV 1000 / 1000 1000 / 1000 1000 / 1000 .CONT .Q10H [facility] Rx#:[id number] Cleocin 600 mg/NS Premix 600 mg 100 / 100 50 / 50 50 / 50 In 50 ml @ 100 mls/hr IV.SIG Q8H [facility] Rx#:[id number] Oral 360 / 360 Output: Urine 1600 / 1600 550 / 550 Narrative: Left lower BKA stump in postoperative dressing with drain in place No acute distress, unlabored breathing Results - Labs CBC & Chem 7: 12/22/17 07:10 12/22/17 07:10 Laboratory Results - last 24 hr 12/22/17 12/22/17 12/23/17 17:32 21:42 08:08 POC Glucose 180 H 180 H 139 H 12/23/17 11:44 POC Glucose 225 H Microbiology 12/21/17 08:40 Wound - Other Gram Stain - Final 12/21/17 08:40 Wound - Other Wound Culture - Final Staphylococcus aureus Pseudomonas aeruginosa 12/20/17 22:08 Wound - Leg Gram Stain - Final 12/20/17 22:08 Wound - Leg Wound Culture - Final Staphylococcus aureus Pseudomonas aeruginosa 12/20/17 22:44 Blood - Line Aerobic Blood Culture - Preliminary No growth in 3 days 12/20/17 22:44 Blood - Line Anaerobic Blood Culture - Preliminary No growth in 3 days 12/20/17 22:38 Blood - Line Aerobic Blood Culture - Preliminary No growth in 3 days 12/20/17 22:38 Blood - Line Anaerobic Blood Culture - Preliminary No growth in 3 days 12/21/17 08:40 Wound - Other Fungal Smear - Final No fungal elements seen Assessment and Plan - Assessment (1) Post op infection Code(s): T81.40XA - Infection following a procedure, unspecified, initial encounter Status: Acute (2) DM (diabetes mellitus) Code(s): E11.9 - Type 2 diabetes mellitus without complications Status: Acute (3) Renal insufficiency Code(s): N28.9 - Disorder of kidney and ureter, unspecified Status: Acute - Plan 52-year-old white male admitted for wound dehiscence of a left BKA. 1. Post Op Infection: s/p Left BKA in [place] with wound dehiscence, s/p fall w/ injury to stump, -Wound cultures growing staph aureus and multidrug-resistant Pseudomonas, agree with infectious disease consult Follow-up wound culture -Continue clindamycin until adjusted by ID 2. DM: Sliding scale w/ Accu-Cheks. Hold Metformin for now 3. WHIT: Continue IV fluids, recheck Lovenox when cleared w/ surgery
--- NOTE | 2017-12-23 20:01 | P.PNOP ---
Subjective Interval history: Doing well. Anxious to be discharged but frustrated about having to stay for abx Physical Exam Vital signs: Vital Signs 12/22/17 20:00 12/22/17 22:09 12/22/17 23:48 Temperature 98 F Pulse Rate 99 H Respiratory Rate 18 17 18 Blood Pressure 170/80 H Pulse Oximetry 99 12/23/17 00:00 12/23/17 03:55 12/23/17 04:00 Temperature 98.7 F 98.3 F Pulse Rate 17 L 90 Respiratory Rate 18 17 Blood Pressure 178/85 H 167/81 H Pulse Oximetry 98 96 12/23/17 08:00 12/23/17 12:00 12/23/17 16:00 Temperature 97.8 F 99.4 F 99 F Pulse Rate 86 97 H 90 Respiratory Rate 18 18 16 Blood Pressure 170/81 H 162/75 H 153/74 H Pulse Oximetry 98 99 99 Intake & Output 12/23/17 12/23/17 12/24/17 06:59 18:59 06:59 Intake Total 1050 / 1050 1050 / 1050 Output Total 1750 / 1750 Balance 1050 / 1050 -700 / -700 Weight 105.2 kg Intake: IV 1050 / 1050 1050 / 1050 NS Inj 1,000 ML @ 100 mls/hr IV 1000 / 1000 1000 / 1000 .CONT .Q10H RENAN Rx#:[id number] Cleocin 600 mg/NS Premix 600 mg 50 / 50 50 / 50 In 50 ml @ 100 mls/hr IV.SIG Q8H RENAN Rx#:[id number] Output: Urine 1750 / 1750 Narrative: Awake, alert, NAD LLE: stump with fresh dressing. Drain has been removed. Incision intact. No significant erythema or drainage. Results - Labs CBC & Chem 7: 12/22/17 07:10 12/22/17 07:10 Laboratory Results - last 24 hr 12/22/17 12/23/17 12/23/17 21:42 08:08 11:44 POC Glucose 180 H 139 H 225 H 12/23/17 18:07 POC Glucose 177 H Microbiology 12/21/17 08:40 Wound - Other Acid Fast Bacilli Smear - Final No acid fast bacilli seen 12/21/17 08:40 Wound - Other Gram Stain - Final 12/21/17 08:40 Wound - Other Wound Culture - Final Staphylococcus aureus Pseudomonas aeruginosa 12/20/17 22:08 Wound - Leg Gram Stain - Final 12/20/17 22:08 Wound - Leg Wound Culture - Final Staphylococcus aureus Pseudomonas aeruginosa 12/20/17 22:44 Blood - Line Aerobic Blood Culture - Preliminary No growth in 3 days 12/20/17 22:44 Blood - Line Anaerobic Blood Culture - Preliminary No growth in 3 days 12/20/17 22:38 Blood - Line Aerobic Blood Culture - Preliminary No growth in 3 days 12/20/17 22:38 Blood - Line Anaerobic Blood Culture - Preliminary No growth in 3 days Assessment and Plan - Assessment and Plan 52-year-old gentleman now approximately 2 weeks status post left BKA at outside facility, POD#2 s/p I&D, revision L BKA 1. NWB LLE. Daily dressing changes as needed. No tape to be applied to stump. Soft dressings with xeroform, gauze, GUILLERMINA 2. Cultures with staph and pseudomonas. Intraop bone was exposed through wound dehiscence. Patient should have at least a couple of weeks of antibiotics. ID has been consulted. Continue abx per ID 3. KI when in bed to prevent flexion contracture 4. Ok to resume anticoagulation
--- NOTE | 2017-12-23 20:13 | MB ---
cc: Porter Murdock MD DATE: 12/23/2017 REQUESTING PHYSICIAN: Krystina Hidalgo MD REASON FOR CONSULTATION: The patient is status post BKA 2 weeks ago. Presented with wound dehiscence with exposed bone. Amputation revision. Staphylococcus and Pseudomonas on culture. HISTORY OF PRESENT ILLNESS: This is a 52-year-old white male who underwent BKA 2 weeks ago of the left leg. The patient fell and had dehiscence of the left afajw-byn-hgau stump. He was seen in the emergency room on 12/20/2017. The wound was noted to be erythematous and he was having a lot of copious drainage from the wound. He was sent to the emergency department from the orthopedics office. The patient underwent revision of the stump. A culture from 12/21/2017 had Staph aureus and Pseudomonas aeruginosa from surgery. Prior wound culture from the leg ulcer had the same organism on 12/20/2017. The patient is afebrile. He has no other complaints. He has very little pain in the stump. PAST MEDICAL HISTORY: Hypertension, kidney stone, diabetes mellitus, amputation of right fifth toe, history of DVT, left below-knee amputation. ALLERGIES: AMPICILLIN, PENICILLIN, VANCOMYCIN. MEDICATIONS: 1. Hodge 5. 2. Lovenox. 3. Prinivil. 4. Insulin. 5. Hailey-Colace. 6. Zofran. SOCIAL HISTORY: The patient is a former smoker. He no longer uses tobacco. No alcohol. The patient uses marijuana. FAMILY HISTORY: Noncontributory. REVIEW OF SYSTEMS: Negative on a 10-point review. PHYSICAL EXAMINATION: GENERAL: This is a slender male who is in no acute distress. He is awake and alert and oriented. VITAL SIGNS: Temperature 99.4, BP 162/75, respirations 18, heart rate 97. HEENT: The head is atraumatic. Extraocular movements grossly intact. Pupils reactive to light. No icterus. Oropharynx: Moist mucosa. No lesions. NECK: Supple, no adenopathy. LUNGS: Clear to auscultation. HEART: Regular rate and rhythm without murmurs, rubs or gallops. ABDOMEN: Bowel sounds present. Soft, nontender. RECTAL: Not performed. EXTREMITIES: Left ddbjz-tuj-okqy amputation stump appears clean. The incision is well apposed. SKIN: Light erythematous rash on the back and chest. NEUROLOGIC: Nonfocal. PSYCHIATRIC: The patient is calm and cooperative. LABORATORY DATA: WBC 8.9, platelets 223, hemoglobin 10.4, 73% neutrophils. Creatinine 0.98. Estimated GFR 80. IMPRESSION: 1. Dehisced wound with infection at the left stump postoperative. The patient is status post left below-knee amputation. Culture growing Pseudomonas and Staphylococcus aureus. 2. PENICILLIN AND VANCOMYCIN ALLERGY. 3. Diabetes mellitus. RECOMMENDATIONS: Give Bactrim p.o. for the Staph aureus and imipenem for the Pseudomonas, since THE PATIENT IS ALLERGIC TO PENICILLINS and the Pseudomonas is resistant to Levaqun. I recommend giving a total of 10 days of antibiotics. MD OPAL Suh/candy , 05:50 PM , 06:02 PM LEIGH
[2017-12-24] MEDS: amLODIPine 5 MG Tablet PO SCH (08:49)
[2017-12-24] MEDS: Senna/Docusate Sodium 8.6/50 MG Tablet PO SCH ×2 (08:50→20:51)
[2017-12-24] MEDS: Lisinopril 20 MG Tablet PO SCH (08:50)
[2017-12-24] MEDS: Enoxaparin Inj 30 MG/0.3 ML Syringe SQ SCH (08:50)
[2017-12-24] MEDS: Insulin NovoLOG Aspart Correctional Sugar Inj SQ SCH ×4 (10:54→21:18)
[2017-12-24] MEDS ORDERED: amLODIPine 5 MG Tablet PO SCH (12:05)
--- NOTE | 2017-12-24 12:16 | P.PN ---
Subjective Interval history: Follow up for stump infection: Patient seen and examined, having stump pain. No chest pain, no shortness of breath. No fever. Frustrated about having to remain in the hospital for antibiotics. No acute changes overnight. Temp max 99.6. Physical Exam Vital signs: Vital Signs 12/23/17 16:00 12/23/17 20:00 12/24/17 01:10 Temperature 99 F 99.6 F Pulse Rate 90 102 H 93 H Respiratory Rate 16 20 18 Blood Pressure 153/74 H 190/95 H 167/83 H Pulse Oximetry 99 98 12/24/17 08:00 Temperature 98.2 F Pulse Rate 84 Respiratory Rate 16 Blood Pressure 161/84 H Pulse Oximetry 99 Intake & Output 12/23/17 12/24/17 12/24/17 18:59 06:59 18:59 Intake Total 1050 / 1050 1200 / 1200 100 / 100 Output Total 1750 / 1750 300 / 300 Balance -700 / -700 900 / 900 100 / 100 Weight 75.6 kg Intake: IV 1050 / 1050 1200 / 1200 100 / 100 NS Inj 1,000 ML @ 100 mls/hr IV 1000 / 1000 .CONT .Q10H RENAN Rx#:[id number] Cleocin 600 mg/NS Premix 600 mg 50 / 50 In 50 ml @ 100 mls/hr IV.SIG Q8H RENAN Rx#:[id number] Primaxin Inj 500 MG In NS Inj 200 / 200 100 / 100 100 ML @ 200 mls/hr IV.SIG Q6H RENAN Rx#:[id number] Output: Urine 1750 / 1750 300 / 300 Other: Date of Last Bowel Movement 12/20/17 Narrative: GENERAL: Well-nourished, well-developed patient in no apparent distress. SKIN: His stump with dressing, intact. HEAD: Atraumatic. Normocephalic. EYES: Pupils equal and round. No scleral icterus. No injection or drainage. ENT: No nasal bleeding or discharge. Mucous membranes pink and moist. NECK: Trachea midline. No JVD. CARDIOVASCULAR: Regular rate and rhythm. RESPIRATORY: No accessory muscle use. Clear to auscultation. Breath sounds equal bilaterally. GASTROINTESTINAL: Abdomen soft, non-tender, nondistended. Hepatic and splenic margins not palpable. MUSCULOSKELETAL: Left stump with dressing dry and intact. No other joint abnormalities. NEUROLOGICAL: Awake and alert. No obvious cranial nerve deficits. Motor grossly within normal limits. Five out of 5 muscle strength in the arms and legs. Normal speech. PSYCHIATRIC: Appropriate mood and affect; insight and judgment normal. Results - Labs CBC & Chem 7: 12/25/17 13:30 12/25/17 13:30 Laboratory Results - last 24 hr 12/23/17 12/23/17 12/24/17 18:07 20:57 07:38 POC Glucose 177 H 250 H 163 H 12/24/17 11:06 POC Glucose 204 H Microbiology 12/20/17 22:44 Blood - Line Aerobic Blood Culture - Preliminary No growth in 4 days 12/20/17 22:44 Blood - Line Anaerobic Blood Culture - Preliminary No growth in 4 days 12/20/17 22:38 Blood - Line Aerobic Blood Culture - Preliminary No growth in 4 days 12/20/17 22:38 Blood - Line Anaerobic Blood Culture - Preliminary No growth in 4 days 12/21/17 08:40 Wound - Other Acid Fast Bacilli Smear - Final No acid fast bacilli seen 12/21/17 08:40 Wound - Other Gram Stain - Final 12/21/17 08:40 Wound - Other Wound Culture - Final Staphylococcus aureus Pseudomonas aeruginosa 12/20/17 22:08 Wound - Leg Gram Stain - Final 12/20/17 22:08 Wound - Leg Wound Culture - Final Staphylococcus aureus Pseudomonas aeruginosa Assessment and Plan - Assessment (1) Post op infection Code(s): T81.40XA - Infection following a procedure, unspecified, initial encounter Status: Acute (2) DM (diabetes mellitus) Code(s): E11.9 - Type 2 diabetes mellitus without complications Status: Acute (3) Renal insufficiency Code(s): N28.9 - Disorder of kidney and ureter, unspecified Status: Acute - Plan 52-year-old white male admitted for wound dehiscence of a left BKA. Post Op Infection: s/p Left B[place] in [place] with wound dehiscence, s/p fall w / injury to stump 12/21 S/P I&D left below-knee amputation wound dehiscence/Left below-knee amputation revision with closure of wound dehiscence -Appreciate orthopedic input, recommends to continue IV antibiotics, continue with wound care per orders. -Wound cultures growing staph aureus and multidrug-resistant Pseudomonas -ID following, input appreciated. -Continue on imipenem and Bactrim p.o. per ID recommendations. Recommend antibiotics for 10 days. DM II -Sliding scale w/ Accu-Cheks. Hold Metformin for now WHIT -Resolving, monitor renal function -Was given IV fluids Hypertension, remains elevated 160s-170s Continue Norvasc, increase to 10 mg p.o. daily Continue with Prinivil at 20 mg an hour Continue with clonidine as needed Case management consultation for discharge planning, patient is not able to come to infusion clinic for IV antibiotics therefore he will need to remain here to complete 10 days of antibiotics unless hospital is willing to provide home health care services.. Patient is a self-pay. Code Status: Full code Discussed Condition With: RN, pt, CM Discharge Planning: Needs to complete abx
[2017-12-25] MEDS: Senna/Docusate Sodium 8.6/50 MG Tablet PO SCH ×2 (08:39→20:15)
[2017-12-25] MEDS: Insulin NovoLOG Aspart Correctional Sugar Inj SQ SCH ×4 (08:39→20:18)
[2017-12-25] MEDS: Enoxaparin Inj 30 MG/0.3 ML Syringe SQ SCH (08:40)
[2017-12-25] MEDS: Lisinopril 20 MG Tablet PO SCH (08:40)
--- NOTE | 2017-12-25 12:00 | P.DCO ---
Post Hospital Infusion Therapy - Infusion Therapy Location of Infusion Therapy: Home Health Care IV Infusion Order - Patient Information Patient Weight: 72.8 kg - Diagnosis (1) Post op infection Code(s): T81.40XA - Infection following a procedure, unspecified, initial encounter - Administer Medication Primaxin Dose: 500 mg IV Directions: q 6 hours Stop Treatment: 01/03/18 - Additional Information Venous Access: PICC Line Additional Instructions: [x] Peripheral flush and dressing changes per protocol [x] Implanted port and central roll line operator: * Implanted port: 10 ml Normal Saline followed by 5 ml Heparin 100 units/ml Heparin flush after each use and monthly to maintain. [] May leave port accessed during therapy. [] May leave peripheral site accessed for duration of therapy. [x] If patient has SOB or respiratory distress, check oxygen saturation. If less than 90% or clinical signs of respiratory distress, administer oxygen at 2 L/min. via nasal cannula and notify physician. [x] Anaphylaxis/Reaction orders: * Stop infusion. * Keep IV line open with saline flush. * Notify physician. * Monitor vital signs every 15 minutes until symptoms resolve. * Check Oxygen saturation; Oxygen at 2 L/min. via nasal cannula if less than 90% or clinical signs of respiratory distress. * Administer diphenhydramine (Benadryl) 25 mg IV STAT, (unless patient has received as pre-med). May repeat once, if necessary. * Solu-Cortef 250 mg IVP over 30-60 seconds, use 100 mg vials for each dissolution. * Epinephrine (1mg/1 ml) 0.3 mg subcutaneously or IVP now with any signs of respiratory distress. * Check with physician for new additional pre-med orders if patient is re- challenged or re-treated. [x] May remove PICC line when treatment complete, after confirming with Physician. [x] If the patient is admitted to the hospital, the ED, or transferred via [facility] , complete transfer form including medication reconciliation order sheet. Weekly Labs: BMP - Patient Information Allergies ampicillin Allergy (Severe, Verified 12/18/17 21:48) Hives Penicillins Allergy (Mild, Verified 12/18/17 21:48) Hives vancomycin Allergy (Mild, Verified 12/18/17 21:48) Hives *MDRO Multi-Drug Resistant Organism Adverse Reaction (Unknown, Uncoded 12/12/17 12:07) NONE MRSA (foot) 10/01/16
--- NOTE | 2017-12-25 12:00 | P.PN ---
Subjective Interval history: Follow up for stump infection: Patient seen and examined, spasms on stump. No fever, no chest pain, no shortness of breath. No nausea, no vomiting. Asking about discharge plan. Informed that we are arranging home health care, patient is agreeable to learning how to do antibiotics if needed. Indicates he has had a PICC line in the past. Physical Exam Vital signs: Vital Signs 12/24/17 12:00 12/24/17 16:00 12/24/17 20:00 Temperature 98.2 F 98.2 F 98.4 F Pulse Rate 98 H 99 H 104 H Respiratory Rate 16 18 Blood Pressure 132/82 166/85 H 177/84 H Pulse Oximetry 99 98 100 12/25/17 00:00 12/25/17 04:00 12/25/17 08:00 Temperature 98.3 F 98.3 F 97.6 F Pulse Rate 99 H 99 H 94 H Respiratory Rate 18 Blood Pressure 170/82 H 158/84 H 150/80 H Pulse Oximetry 99 99 99 Intake & Output 12/24/17 12/25/17 12/25/17 18:59 06:59 18:59 Intake Total 1040 / 1040 620 / 620 100 / 100 Output Total 1000 / 1000 350 / 350 350 / 350 Balance 40 / 40 270 / 270 -250 / -250 Weight 72.8 kg Intake: IV 200 / 200 200 / 200 100 / 100 Primaxin Inj 500 MG In NS Inj 200 / 200 200 / 200 100 / 100 100 ML @ 200 mls/hr IV.SIG Q6H RENAN Rx#:[id number] Oral 840 / 840 420 / 420 Output: Urine 1000 / 1000 350 / 350 350 / 350 Other: Date of Last Bowel Movement 12/20/17 12/23/17 # Bowel Movements 0 Narrative: GENERAL: Well-nourished, well-developed patient in no apparent distress. SKIN: His stump with dressing, intact. HEAD: Atraumatic. Normocephalic. EYES: Pupils equal and round. No scleral icterus. No injection or drainage. ENT: No nasal bleeding or discharge. Mucous membranes pink and moist. NECK: Trachea midline. No JVD. CARDIOVASCULAR: Regular rate and rhythm. RESPIRATORY: No accessory muscle use. Clear to auscultation. Breath sounds equal bilaterally. GASTROINTESTINAL: Abdomen soft, non-tender, nondistended. Hepatic and splenic margins not palpable. MUSCULOSKELETAL: Left stump with dressing dry and intact. No other joint abnormalities. NEUROLOGICAL: Awake and alert. No obvious cranial nerve deficits. Motor grossly within normal limits. Five out of 5 muscle strength in the arms and legs. Normal speech. PSYCHIATRIC: Appropriate mood and affect; insight and judgment normal. Results - Labs CBC & Chem 7: 12/25/17 13:30 12/25/17 13:30 Laboratory Results - last 24 hr 12/24/17 12/24/17 12/25/17 17:30 20:57 07:30 POC Glucose 181 H 161 H 150 H 12/25/17 11:30 POC Glucose 194 H Microbiology 12/20/17 22:44 Blood - Line Aerobic Blood Culture - Final No growth in 5 days 12/20/17 22:44 Blood - Line Anaerobic Blood Culture - Final No growth in 5 days 12/20/17 22:38 Blood - Line Aerobic Blood Culture - Final No growth in 5 days 12/20/17 22:38 Blood - Line Anaerobic Blood Culture - Final No growth in 5 days Assessment and Plan - Assessment (1) Post op infection Code(s): T81.40XA - Infection following a procedure, unspecified, initial encounter Status: Acute (2) DM (diabetes mellitus) Code(s): E11.9 - Type 2 diabetes mellitus without complications Status: Acute (3) Renal insufficiency Code(s): N28.9 - Disorder of kidney and ureter, unspecified Status: Acute - Plan 52-year-old white male admitted for wound dehiscence of a left BKA. Post Op Infection: s/p Left BKA in [place] with wound dehiscence, s/p fall w / injury to stump 12/21 S/P I&D left below-knee amputation wound dehiscence/Left below-knee amputation revision with closure of wound dehiscence -Appreciate orthopedic input, recommends to continue IV antibiotics, continue with wound care per orders. -Wound cultures growing staph aureus and multidrug-resistant Pseudomonas -ID following, input appreciated. -Continue on imipenem and Bactrim p.o. per ID recommendations. Recommend antibiotics for 10 days. DM II -Sliding scale w/ Accu-Cheks. Hold Metformin for now WHIT -Resolving, monitor renal function -Was given IV fluids Hypertension, remains elevated 160s-170s Continue Norvasc, increased to 10 mg p.o. daily Continue with Prinivil at 20 mg an hour Continue with clonidine as needed Depression, pt. states he feels depressed about current health situation. When he was in [place] he was prescribed antidepressant, which he did not take. Was concerned with potential for abuse. Denies any suicidal ideation. Was on alprazolam in [place] as needed He does not want to start any medications while in the hospital, does not want any alprazolam in either. Prefers to follow-up as outpatient, at this time he is looking forward to going home and getting better. -Follow-up as outpatient CM arranging HHC for IV abx will order PICC D/W Dr. Murdock, he will order abx for OP Poss dc today when arrangements made F/U [facility] Diabetic diet Wound care per home care Code Status: Full code Discussed Condition With: RN, pt, CM Discharge Planning: poss dc today when HHC with abx arranged
--- NOTE | 2017-12-25 12:03 | P.DCO ---
- Diagnosis (1) Post op infection Status: Acute - Home Health Nursing Order: Medical education, Signs/symptoms of disease process, Wound care and dressing changes (Daily dressing changes as needed. No tape to be applied to stump. Soft dressings with xeroform, gauze, GUILLERMINA), IV medication administration ( teach and train for IV abx administration. ) - Case Management Consult Yes - Certification I have seen patient Oniel Miller on 12/25/17. My clinical findings support the need for the requested home health care services because: stump infection, unable to ambulate, needs iv abx Limited ability to care for self, Need for psychosocial assistance, Infection with risk of complications, Injectable medication education/administration I certify that my clinical findings support that this patient is homebound because: Non-ambulatory: confined to bed or chair
--- NOTE | 2017-12-25 13:19 | P.PNADD ---
Addendum to Inpatient Note Reason for Addendum: Additional Documentation Additional information: For infusion clinic: Please maintain PICC line care weekly and draw weekly labs
[2017-12-25 13:39] LABS: Hematocrit 32.7 % (39.0-51.0); Hemoglobin 10.7 gm/dL (13.0-17.0); Mean Corpuscular HGB Conc 32.8 % (32.0-36.0); Mean Corpuscular Hemoglobin 27.7 pg (27.0-34.0); Mean Corpuscular Volume 84.3 fL (80.0-100.0); Mean Platelet Volume 7.4 fL (7.0-11.0); Platelet Count 408 th/mm3 (150-450); Red Blood Count 3.88 mil/mm3 (4.50-5.90); Red Cell Distribution Width 15.4 % (11.6-17.2); White Blood Count 7.2 th/mm3 (4.0-11.0)
[2017-12-25 13:56] LABS: Calcium 8.7 mg/dL (8.5-10.1); Carbon Dioxide 28.2 meq/L (21.0-32.0)
[2017-12-25] MEDS ORDERED: Heparin Central Flush 100 UNIT/ML 5 ML Vial IV.FLUSH PRN (16:15)
--- NOTE | 2017-12-26 07:20 | P.OP ---
Date of procedure: 12/21/17 Procedure: 1. I&D left below-knee amputation wound dehiscence 2. Left below-knee amputation revision with closure of wound dehiscence Anesthesia: TUANA Surgeon: Krystina Hidalgo MD Estimated blood loss (mL): 50 Pathology: other (culture sent to microbiology) Operation and Findings: Indications for procedure: Patient is a 52-year-old gentleman who underwent left below-knee amputation for nonhealing diabetic foot wounds at the end of November in [place]. Patient presented with wound dehiscence and foul- smelling drainage from his amputation site. Recommendation for operative intervention in the form of irrigation and debridement with possible revision left below-knee amputation. Risks, benefits, alternatives were discussed with the patient. At this time he is consented for the above-mentioned procedure. Description of procedure: Patient was brought back to the operating room and placed supine on operating table with all bony prominences well padded. Tourniquet was placed on the patient's left thigh and patient was prepped and draped in standard sterile fashion. Preoperative antibiotics were given within 1 hour of incision. A timeout was performed to identify the correct patient, side, site and procedure then performed. [place] exsanguination was performed on the left leg and the tourniquet was inflated to 250 mmHg. I then turned my attention to the stump wound. Approximately 3 inch wound dehiscence was noted in the middle of the previous amputation incision. There was clearly exposed bone with foul-smelling drainage. The remaining incision was opened and cat removed. There was fascial dehiscence throughout the entire wound. Cultures were taken. At this time the skin was sharply debrided. The muscle and fascia was then debridement curettes and rongeurs. The wound was thoroughly irrigated with 3 L of normal saline with gentamicin. At this time, the bone cuts were assessed. The tibia appeared greater than 1 cm past the anterior skin flap. In addition, I was concerned given the bone had been exposed with an open wound dehiscence for greater than 3 days with possible osteomyelitis. At this time I felt appropriate to recut the tibia proximally 1/ 2 cm more proximally. The tibial edge was then beveled. The fibula was then trimmed approximately 170 proximal to the distal aspect of the tibia cut. The wound was thoroughly irrigated with 3 L of normal saline. At this time the tourniquet was deflated and hemostasis was achieved without electrocautery. An intramedullary attention to tenodesis in the gastrocsoleus to the anterior aspect of the tibia. 3 drill tunnels were made into the anterior aspect of the distal tibia. The gastrocsoleus muscle and fascia was then tenodesed with the use of PDS suture. A Hemovac drain was then placed deep. The remaining fascia was then closed with 0 PDS suture. The subcutaneous tissue was closed with 2-0 PDS suture and the skin closed with nylon. Sterile dressings were applied. Patient was then awoken from general anesthesia without consultation. Disposition: Patient be nonweightbearing to the left lower extremity. Patient will require antibiotics for at least a couple of weeks given his wound dehiscence with exposed bone and concern for infection. Cultures are pending at this time.
--- NOTE | 2017-12-26 07:27 | P.DS ---
Date of admission: 12/21/17 00:03 Primary care physician: Smiley Louie Attending physician on discharge: Travis Marina Anticipated date of discharge: 12/25/17 Brief History from admission: This is a 52-year-old male with a PMH of HTN, DM, PVD and h/o Left BKA who was sent to the ER by Orthopedist for admission and surgical intervention in am. Pt states he was admitted to the hospital in [place] for left foot infection, underwent multiple surgeries for non-healing foot infection and ultimately had Left BKA on . [facility] and was seen in ER on 12/12/17 after fall, states he thought his leg was still there and tried to step with it and which time he fell, wound noted to be intact and was d /c'd home. Had second fall and was seen in ER again on 12/18/17, noted to have some wound dehiscence but no purulent drainage and referred to Orthopedic Surgery as outpatient. Seen in office today and referred to the ER for admission and surgical intervention by Dr. Hidalgo in am. Was prescribed Bactrim and Keflex which he started today. Denies fever or chills. No significant pain complaints. On arrival, BP 124/76, HR 100, O2 sat 98% on RA, Afebrile. CBC unremarkable. Creatinine 1.35, no previous labs for comparison. DS: Diagnosis - Discharge Diagnosis (1) Post op infection Status: Acute (2) DM (diabetes mellitus) Status: Acute (3) Renal insufficiency Status: Acute DS: Medications - Discharge Medications Prescriptions: sulfamethoxazole-trimethoprim 1 tab PO Q12HR 10 Days #20 tab DS: Summary Hospital Course: 52-year-old white male admitted for wound dehiscence of a left BKA. Post Op Infection: s/p [place] B[place] with wound dehiscence, s/p fall w / injury to stump Ortho consulted, on 12/21 performed: 1. I&D left below-knee amputation wound dehiscence 2. Left below-knee amputation revision with closure of wound dehiscence ID on consult as well, abx recommended. Wound cultures growing staph aureus and multidrug-resistant Pseudomonas ID recommended imipenem and Bactrim p.o. for 10 days. Was noted in [facility], given IVF, resolved. Metformin was held CM consulted for dc planning, pt. was a self pay. Hospital arranged to provide HHC/wound care. Pt. had no fever, labs normalized. Cleared for discharge - Time Spent with Patient Total time spent providing and/or coordinating discharge services:35 minutes Greater than 30 minutes - Quality: VTE Deep Vein Thrombosis/Pulmonary Embolism Present on Admission: No Exam Vital signs: Vital Signs 12/25/17 08:00 12/25/17 12:00 12/25/17 16:00 Temperature 97.6 F 99.1 F 98.0 F Pulse Rate 94 H 101 H 107 H Respiratory Rate 18 18 Blood Pressure 150/80 H 141/60 H 157/80 H Pulse Oximetry 99 98 96 12/25/17 20:00 Temperature 98.6 F Pulse Rate 110 H Respiratory Rate 17 Blood Pressure 165/79 H Pulse Oximetry 98 Intake & Output 12/25/17 12/26/17 12/26/17 18:59 06:59 18:59 Intake Total 200 / 200 100 / 100 Output Total 850 / 850 Balance -650 / -650 100 / 100 Weight 72.8 kg Intake: IV 200 / 200 100 / 100 Primaxin Inj 500 MG In NS Inj 200 / 200 100 / 100 100 ML @ 200 mls/hr IV.SIG Q6H [facility] Rx#:[id number] Output: Urine 850 / 850 Other: Date of Last Bowel Movement 12/23/17 Results Procedures completed during hospitalization: Date of procedure: 12/21/17 Procedure: 1. I&D left below-knee amputation wound dehiscence 2. Left below-knee amputation revision with closure of wound dehiscence Labs on day of discharge: Labs from last 24 hours 12/25/17 12/25/17 12/25/17 20:11 16:15 13:30 WBC RBC Hgb Hct MCV MCH MCHC RDW Plt Count MPV Sodium 135 L Potassium 4.0 Chloride 101 Carbon Dioxide 28.2 Anion Gap 6 BUN 13 Creatinine 0.94 Estimated GFR 84 L POC Glucose 216 H 184 H Random Glucose 220 H Calcium 8.7 12/25/17 12/25/17 12/25/17 13:30 11:30 07:30 WBC 7.2 RBC 3.88 L Hgb 10.7 L Hct 32.7 L MCV 84.3 MCH 27.7 MCHC 32.8 RDW 15.4 Plt Count 408 D MPV 7.4 Sodium Potassium Chloride Carbon Dioxide Anion Gap BUN Creatinine Estimated GFR POC Glucose 194 H 150 H Random Glucose Calcium Discharge Plan - Discharge Disposition Patient Disposition: W/Home Health Service - Discharge Condition Condition: Stable - Discharge Order Discharge Orders: Discharge Order (Routine); Ordered 12/25/17 Ordered By: Margie Vo - Discharge Details Anticipated Discharge Date: 12/25/17 - Physicians Team Primary Care Provider: Smileyakin Louie, Attending Provider: Travis Marina Other Providers: Krystina Hidalgo MD ; Porter Murdock MD
[2017-12-26] MEDS ORDERED: Heparin Central Flush 100 UNIT/ML 5 ML Vial IV.FLUSH SCH (09:00)
== END 2017-12-25 21:43 | disposition home health service (06) ==
LOC: NEPC 20:09 → NEDA 12-21 00:03 → N07 12-21 01:10
PROVIDERS: ADMIT Hospitalist; ATTEND Hospitalist

== ENCOUNTER 2018-01-23 13:02 | Observation (INO) ==
[2018-01-23] MEDS ORDERED: Chlorhexidine Gluconate 2% 1 Pack (2 Cloths) TOPICAL ONE (13:40)
[2018-01-23] MEDS ORDERED: Metoprolol Tartrate 25 MG Tablet PO ONE (13:40)
[2018-01-23] MEDS ORDERED: Chlorhexidine 4% Topical 120 APPLIC/120 ML Bottle TOPICAL SCH (13:45)
[2018-01-23] MEDS ORDERED: Sodium Chlor 0.9% Inj 500 ML IV.SIG SCH (14:00)
[2018-01-23] MEDS ORDERED: Succinylcholine Inj 100 MG/5 ML Syringe IV.PUSH ONE (15:16)
[2018-01-23] MEDS ORDERED: Labetalol HCl Inj 100 MG/20 ML Vial IV.CONT ONE (15:16)
[2018-01-23] MEDS ORDERED: ceFAZolin Inj 500 MG Vial ONE (15:23)
[2018-01-23] MEDS ORDERED: Piperacil/Tazo 3.375 GM Premix 50 ML IV.SIG SCH (15:30)
[2018-01-23] MEDS ORDERED: Ketamine Inj 50 MG/5 ML Syringe IV.PUSH ONE (16:11)
[2018-01-23] MEDS ORDERED: fentaNYL Citrate Inj 100 MCG/2 ML Ampul ONE ×2 (16:19→16:41)
[2018-01-23] MEDS ORDERED: Post-op Orders (for Pharmacy) OTHER STA (16:56)
--- NOTE | 2018-01-23 16:56 | P.OP ---
Date of procedure: 01/23/18 Procedure: Left above-knee amputation Anesthesia: GETA Surgeon: Krystina Hidalgo MD Estimated blood loss (mL): 150 Pathology: none sent Operation and Findings: Indications for procedure: Patient is a 53-year-old gentleman who presented to my office with a left below-knee amputation wound dehiscence with infection. Patient initially underwent an irrigation and debridement with revision of his below-knee amputation. Patient subsequently developed recurrent wound dehiscence with recurrent infection. At this time, given his stump length was only 10 cm, I recommended irrigation and debridement with possible revision below-knee amputation versus left above-knee amputation. Risks, benefits, alternatives were discussed with the patient. At this time he has consented to the above-mentioned procedure. Description of procedure: Patient was brought back to the operating room and placed supine on operating room table with all bony promises well-padded. General anesthesia then ensued. A tourniquet was placed on the patient's upper left thigh. Patient was prepped and draped in standard sterile fashion. A timeout was performed to identify the correct patient, side, site and procedure to be performed. I turned my attention initially to the below-knee amputation wound dehiscence. There was a large wound dehiscence with bone exposed with gross purulence. At this time, given the short stump and recurrent osteomyelitis and wound dehiscence, I decided upon a left above-knee amputation. Antibiotics were given within 1 hour of incision. The tourniquet was inflated to 250 mmHg and a fishmouth incision was made over the distal aspect of the femur. Sharp dissection and electrocautery dissection was utilized through the skin, subcutaneous tissue and fascia. The muscle was then transected with electrocautery. The distal femur was freed of its soft tissue attachments and cut just proximal to the supracondylar region. The end of the bone was beveled. The neurovascular structures were identified and the vascular structures tied off with silk suture and transected. The sciatic nerve was pulled distally and transected sharply to allow it to retract back up into the wound. The wound was thoroughly irrigated with over 3 L of normal saline laden with gentamicin. The tourniquet was deflated and hemostasis was achieved with electrocautery. There is no significant bleeding at this time. I then turned my attention to the abductor tenodesis. 2 drill tunnels were made in the lateral aspect of the distal femur. The abductors were then sutured from medial to lateral to allow for appropriate tenodesis. A deep drain was then placed. The anterior and posterior muscle and fascia was then closed over the distal aspect of the femur. This was performed with #1 Vicryl sutures. The subcutaneous tissue was then closed with 2-0 Vicryl sutures and the skin closed with nylon. Patient was awoken from general anesthesia without complication. Disposition: Patient should be nonweightbearing to the left lower extremity stump. Dressing and drain should remain in place until postop day 2 at which time this can be removed.
[2018-01-23] MEDS ORDERED: *Meperidine Inj 25 MG/ML Vial PERIprocedural Use ONLY ONE (17:01)
[2018-01-23] MEDS ORDERED: *morphine SULFATE 10 MG/ML PERIprocedure ONLY ONE ×2 (17:04→17:13)
[2018-01-23] MEDS ORDERED: *HYDROmorphone PF Inj 1 MG/ML Ampul PERIprocedural Use ONLY ONE ×3 (17:25→17:49)
[2018-01-23] MEDS ORDERED: *Enalaprilat Inj 1.25 MG/ML Vial IV.PUSH ONE (17:48)
[2018-01-23] MEDS ORDERED: Labetalol HCl Inj 100 MG/20 ML Vial ONE (18:02)
[2018-01-23] MEDS ORDERED: hydrALAZINE HCl Inj 20 MG/ML Vial ONE (18:09)
[2018-01-23] MEDS ORDERED: *Ondansetron Inj 4 MG/2 ML Vial PERIprocedural Use ONLY ONE (18:09)
[2018-01-23] MEDS ORDERED: hydrALAZINE HCl Inj 20 MG/ML Vial IV.PUSH ONE (18:10)
[2018-01-23] MEDS: Insulin NovoLOG Aspart Correctional Sugar Inj SQ SCH ×2 (18:40→21:06)
[2018-01-23] MEDS: Morphine Inj 4 MG/ML Vial IV.PUSH PRN ×2 (19:52→23:49)
[2018-01-23] MEDS: Gabapentin 300 MG Capsule PO SCH (21:05)
[2018-01-23] MEDS: Senna/Docusate Sodium 8.6/50 MG Tablet PO SCH (21:06)
[2018-01-23] MEDS: ceFAZolin 1 GM Premix Inj 1 GM/50 ML PIGGYBACK IV.SIG SCH (23:55)
[2018-01-24] MEDS: Morphine Inj 4 MG/ML Vial IV.PUSH PRN ×3 (02:57→10:50)
[2018-01-24 06:05] LABS: Hematocrit 34.1 % (39.0-51.0); Hemoglobin 11.4 gm/dL (13.0-17.0)
[2018-01-24] MEDS: ceFAZolin 1 GM Premix Inj 1 GM/50 ML PIGGYBACK IV.SIG SCH ×2 (06:33→14:29)
[2018-01-24] MEDS: Insulin NovoLOG Aspart Correctional Sugar Inj SQ SCH ×6 (06:33→22:26)
--- NOTE | 2018-01-24 08:52 | P.CON ---
History of Present Illness Consult date: 01/24/18 Requesting Physician: Krystina Hidalgo Reason for Consult: Medical management. Primary Care Provider: [facility] Chief Complaint: Brought in for Above Knee amputation History of Present Illness: This is a pleasant 53 y/o male who was brought in by his Primary Orthopedic surgeon Doctor Krystina Hidalgo for Left Above Knee amputation, in a patient with diagnosis of Left Below Knee amputation wound dehiscence 01/23/18. patient with history of feet infection, has Hypertension, DM II, Non compliance history. Seen in his bedroom, stable. Review of Systems All other systems reviewed negative except as stated in HPI PMFSH - History History Provided By: Patient - Medical History Medical History: Medical History (Last Reviewed 01/23/18 @ 13:59 by Nova Posada) Amputated toe of right foot DVT (deep venous thrombosis) Diabetes Hypertension Kidney stone - Surgical History Surgical History: Surgical History (Last Reviewed 01/23/18 @ 14:00 by Nova Posada) Amputated below knee - Family History Family History: Family History (Last Updated 01/24/18 @ 16:48 by Jomar Jones MD) Mother Family history of diabetes mellitus - Tobacco History Second Hand Smoke Exposure: Yes Tobacco Use In Past 30 Days: No Smoking Status: Former smoker Tobacco Type: Cigarettes - Alcohol History How Often Do You Have a Drink Containing Alcohol: Monthly or less - Substance Use History Substance History: No History of Abuse - Substance Use Type Marijuana Status: Active Route Used: Inhalation - Travel History Recent Travel in the [place] Within the Last 8 Weeks: Yes Recent Travel Out of the Country Within the Last 8 Weeks: No - Immunization History Tetanus Immunization Year if Known: 2014 Medications and Allergies Active Medications: Active Medications Hydrocodone Bitart/Acetaminophen ([place] 10/325) 1 tab PO Q3H PRN PRN Reason: PAIN SCALE 6 TO 10 Last Admin: 01/24/18 05:15 Dose: 1 tab Hydrocodone Bitart/Acetaminophen ([place] 5/325) 1 tab PO Q3H PRN PRN Reason: PAIN SCALE 1 TO 5 Al Hydroxide/Mg Hydroxide (Milk Of [place]leslie Liq) 30 ml PO BID PRN PRN Reason: MILD CONSTIPATION Amlodipine Besylate (Norvasc) 5 mg PO DAILY [facility] Chlorhexidine Gluconate (Hibiclens 4% Topical) 1 applicatio TOPICAL ONCE [facility] Stop: 11/19/18 13:44 Diphenhydramine HCl (Benadryl) 25 mg PO Q6H PRN PRN Reason: ITCHING Enoxaparin Sodium (Lovenox Inj) 40 mg SQ DAILY [facility] Gabapentin (Neurontin) 300 mg PO TID [facility] Last Admin: 01/23/18 21:05 Dose: 300 mg Lactated Ringer's (Lr 1000 Ml Inj) 1,000 mls @ 30 mls/hr IV.SIG .Q24H [facility] Stop: 01/24/18 13:44 Last Admin: 01/23/18 13:52 Dose: 30 mls/hr Sodium Chloride (Ns Inj) 500 mls @ 30 mls/hr IV.SIG .Q10H [facility] Last Admin: 01/23/18 14:27 Dose: Not Given Piperacillin/Tazobactam/Dextrose (Zosyn 3.375 Gm Premix) 50 mls @ 100 mls/hr IV.SIG [employer] [facility] Stop: 01/24/18 15:29 Cefazolin Sodium/Dextrose (Ancef 1 Gm Premix Inj) 1 gm in 50 mls @ 100 mls/hr IV.SIG Q8H [facility] Stop: 01/24/18 15:29 Last Infusion: 01/24/18 07:37 Dose: Infused Insulin Aspart (Novolog Insulin Correctional Sugar Inj) 0 unit SQ 5 TIMES A DAY [facility]; Protocol Last Admin: 01/24/18 06:33 Dose: 7 unit Lisinopril (Prinivil) 20 mg PO DAILY [facility] Miscellaneous Information ([facility] Nursing Information) 1 each OTHER UNSCH PRN PRN Reason: SEE LABEL COMMENTS Stop: 01/24/18 18:57 Morphine Sulfate (Morphine Inj) 4 mg IV.PUSH Q3H PRN PRN Reason: BREAKTHROUGH PAIN Last Admin: 01/24/18 06:33 Dose: 4 mg Multivitamins/Minerals (Theragran-M) 1 tab PO DAILY [facility] Ondansetron HCl (Zofran Inj) 4 mg IV.PUSH Q6H PRN PRN Reason: NAUSEA OR VOMITING Last Admin: 01/24/18 06:37 Dose: 4 mg Quetiapine Fumarate (Seroquel) 12.5 mg PO AC DINNER [facility] Senna/Docusate Sodium (Hailey-Colace) 1 tab PO BID [facility] Last Admin: 01/23/18 21:06 Dose: 1 tab Sennosides (Senokot) 17.2 mg PO BID PRN PRN Reason: Moderate Constipation Sodium Chloride (Ns Flush) 2 ml IV.FLUSH PRN PRN PRN Reason: FLUSH AFTER USING IV ACCESS Sodium Chloride (Ns Flush) 2 ml IV.FLUSH BID [facility] Last Admin: 01/23/18 21:06 Dose: 2 ml Allergies Allergy/AdvReac Type Severity Reaction Status Date / Time ampicillin Allergy Severe Hives Verified 01/23/18 13:59 Penicillins Allergy Mild Hives Verified 01/23/18 13:59 vancomycin Allergy Mild Hives Verified 01/23/18 13:59 *MDRO Multi-Drug Resistant AdvReac Unknown NONE Uncoded 01/23/18 13:59 Organism Home Medications Medication Instructions Recorded Confirmed Type amlodipine 5 mg PO DAILY 12/12/17 01/23/18 History lisinopril 20 mg PO DAILY 12/12/17 01/23/18 History metformin 500 mg PO BID 12/12/17 01/23/18 History gabapentin 300 mg PO TID 12/31/17 01/23/18 History quetiapine 12.5 mg PO AC DINNER 12/31/17 01/23/18 History Physical Exam Vital signs: Vital Signs 01/23/18 14:08 01/23/18 16:55 01/23/18 17:00 Temperature 98.4 F 98.3 F Pulse Rate 100 H 92 H 96 H Respiratory Rate 16 22 15 Blood Pressure 121/81 167/89 H 169/93 H Pulse Oximetry 99 98 96 01/23/18 17:07 01/23/18 17:15 01/23/18 17:30 Temperature Pulse Rate 93 H 92 H Respiratory Rate 18 15 15 Blood Pressure 171/98 H 172/99 H Pulse Oximetry 97 97 01/23/18 17:45 01/23/18 18:00 01/23/18 18:15 Temperature Pulse Rate 92 H 93 H 99 H Respiratory Rate 16 16 16 Blood Pressure 180/99 H 185/93 H 182/93 H Pulse Oximetry 98 98 99 01/23/18 18:20 01/23/18 18:30 01/23/18 18:40 Temperature Pulse Rate 93 H 96 H 91 H Respiratory Rate 16 16 16 Blood Pressure 173/85 H 169/86 H 160/83 H Pulse Oximetry 99 99 99 01/23/18 18:50 01/23/18 18:54 01/23/18 20:00 Temperature 98 F 99 F Pulse Rate 98 H 101 H Respiratory Rate 16 20 Blood Pressure 157/80 H 163/74 H Pulse Oximetry 98 98 99 01/24/18 00:00 01/24/18 03:45 01/24/18 08:00 Temperature 97.6 F 97.5 F L 98.1 F Pulse Rate 105 H 103 H 107 H Respiratory Rate 20 20 16 Blood Pressure 165/78 H 144/75 H 144/67 H Pulse Oximetry 99 99 99 Intake & Output 01/23/18 01/24/18 01/24/18 18:59 06:59 18:59 Intake Total 700 / 700 410 / 410 50 / 50 Output Total 120 / 120 1390 / 1390 Balance 580 / 580 -980 / -980 50 / 50 Weight 72.5 kg 74.4 kg Intake: IV 50 / 50 50 / 50 Ancef 1 GM Premix Inj 1 gm In 50 / 50 50 / 50 50 ml @ 100 mls/hr IV.SIG Q8H [facility] Rx#:[id number] Oral 360 / 360 Anesthesia Amount 700 / 700 Output: Urine 1300 / 1300 Estimated Blood Loss 100 / 100 Wound Drainage 20 20 90 / 90 Left Thigh 20 / 20 90 / 90 Other: Weight On Admission 72.5 kg Narrative: GENERAL: No acute distress. HEENT: PERRLA, EOMI. No scleral icterus or conjunctival pallor. No lid lag or facial droop. CARDIOVASCULAR: Regular rate and rhythm. No obvious murmurs to auscultation. No chest tenderness to palpation. RESPIRATORY: No obvious rhonchi or wheezing. Clear to auscultation. Breath sounds equal bilaterally. GASTROINTESTINAL: Abdomen soft, non-tender, nondistended. BS normal. MUSCULOSKELETAL: Extremities without clubbing, cyanosis, Left Above Knee amputation. dressed and with Hemovac in place NEUROLOGICAL: Awake, alert and oriented x4. No focal neurologic deficits. Moving both upper and lower extremities spontaneously. Results - Labs CBC & Chem 7: 01/24/18 04:48 Labs: Laboratory Results - last 24 hr 01/23/18 01/23/18 01/23/18 13:52 17:04 19:58 Hgb Hct POC Glucose 177 H 372 H Blood Type O Positive Blood Type Recheck Not needed Antibody Screen Negative 01/23/18 01/24/18 01/24/18 19:59 04:48 05:19 Hgb 11.4 L Hct 34.1 L POC Glucose 364 H 429 H Blood Type Blood Type Recheck Antibody Screen 01/24/18 05:22 Hgb Hct POC Glucose 385 H Blood Type Blood Type Recheck Antibody Screen Assessment and Plan - Plan 1. non healing left BKA now converted to AKA and has been dressed and with Hemovac in place 2. Hypertension controlled continue home medicines 3. DM II Uncontrolled giving Levemir 20 units in am, 5 units pre meal and Medium sliding scale and following with Hemoglobin A1C. 4. Hyperlipidemia on high intensity statins 5. Medical non compliance 6. Marijuana abuse strongly recommended to stop this behavior. Follow laboratory DVT Prophylaxis: Heparin sq Social work for d/c planning as needed. Code Status: Full Code. Discussed Condition With: Patient and Nurse Miss Buchanan Discharge Planning: As per Attending physician.
[2018-01-24] MEDS: Enoxaparin Inj 40 MG/0.4 ML Syringe SQ SCH (08:59)
[2018-01-24] MEDS ORDERED: Insulin Detemir Inj 1,000 UNIT/10 ML Vial SQ SCH (09:00)
[2018-01-24] MEDS: Multivitamin/Minerals Therapeutic Tablet PO SCH (09:00)
[2018-01-24] MEDS: Gabapentin 300 MG Capsule PO SCH ×3 (09:00→18:06)
[2018-01-24] MEDS: Senna/Docusate Sodium 8.6/50 MG Tablet PO SCH ×3 (09:00→22:29)
[2018-01-24] MEDS: amLODIPine 5 MG Tablet PO SCH (09:00)
[2018-01-24] MEDS: Lisinopril 20 MG Tablet PO SCH (09:08)
[2018-01-24 10:41] LABS: Chol/HDL Ratio 3.75 Ratio
[2018-01-24 13:55] LABS: Hemoglobin A1c 6.8 % (4.3-6.0)
--- NOTE | 2018-01-24 14:28 | P.PNOP ---
Subjective Interval history: Resting comfortably. Pain relatively well controlled. Physical Exam Vital signs: Vital Signs 01/23/18 16:55 01/23/18 17:00 01/23/18 17:07 Temperature 98.3 F Pulse Rate 92 H 96 H Respiratory Rate 22 15 18 Blood Pressure 167/89 H 169/93 H Pulse Oximetry 98 96 01/23/18 17:15 01/23/18 17:30 01/23/18 17:45 Temperature Pulse Rate 93 H 92 H 92 H Respiratory Rate 15 15 16 Blood Pressure 171/98 H 172/99 H 180/99 H Pulse Oximetry 97 97 98 01/23/18 18:00 01/23/18 18:15 01/23/18 18:20 Temperature Pulse Rate 93 H 99 H 93 H Respiratory Rate 16 16 16 Blood Pressure 185/93 H 182/93 H 173/85 H Pulse Oximetry 98 99 99 01/23/18 18:30 01/23/18 18:40 01/23/18 18:50 Temperature 98 F Pulse Rate 96 H 91 H 98 H Respiratory Rate 16 16 16 Blood Pressure 169/86 H 160/83 H 157/80 H Pulse Oximetry 99 99 98 01/23/18 18:54 01/23/18 20:00 01/24/18 00:00 Temperature 99 F 97.6 F Pulse Rate 101 H 105 H Respiratory Rate 20 20 Blood Pressure 163/74 H 165/78 H Pulse Oximetry 98 99 99 01/24/18 03:45 01/24/18 08:00 01/24/18 12:00 Temperature 97.5 F L 98.1 F 98.5 F Pulse Rate 103 H 107 H 106 H Respiratory Rate 20 16 16 Blood Pressure 144/75 H 144/67 H 146/74 H Pulse Oximetry 99 99 99 Intake & Output 01/23/18 01/24/18 01/24/18 18:59 06:59 18:59 Intake Total 700 / 700 410 / 410 50 / 50 Output Total 120 / 120 1390 / 1390 Balance 580 / 580 -980 / -980 50 / 50 Weight 72.5 kg 74.4 kg Intake: IV 50 / 50 50 / 50 Ancef 1 GM Premix Inj 1 gm In 50 / 50 50 / 50 50 ml @ 100 mls/hr IV.SIG Q8H [facility] Rx#:[id number] Oral 360 / 360 Anesthesia Amount 700 / 700 Output: Urine 1300 / 1300 Estimated Blood Loss 100 / 100 Wound Drainage 90 / 90 Left Thigh 90 / 90 Other: Weight On Admission 72.5 kg Narrative: Awake, alert, NAD LLE: dressing and drain in place. No significant drainage on dressing. Results - Labs CBC & Chem 7: 01/24/18 04:48 Laboratory Results - last 24 hr 01/23/18 01/23/18 01/23/18 13:52 17:04 19:58 Hgb Hct POC Glucose 177 H 372 H Triglycerides Cholesterol LDL Cholesterol, Calc HDL Cholesterol Cholesterol/HDL Ratio TSH Blood Type O Positive Blood Type Recheck Not needed Antibody Screen Negative 01/23/18 01/24/18 01/24/18 19:59 04:48 05:19 Hgb 11.4 L Hct 34.1 L POC Glucose 364 H 429 H Triglycerides Cholesterol LDL Cholesterol, Calc HDL Cholesterol Cholesterol/HDL Ratio TSH Blood Type Blood Type Recheck Antibody Screen 01/24/18 01/24/18 01/24/18 05:22 10:00 10:00 Hgb Hct POC Glucose 385 H Triglycerides 151 H Cholesterol 210 H LDL Cholesterol, Calc 124 H HDL Cholesterol 56.0 Cholesterol/HDL Ratio 3.75 TSH 2.660 Blood Type Blood Type Recheck Antibody Screen 01/24/18 01/24/18 10:12 12:09 Hgb Hct POC Glucose 278 H 280 H Triglycerides Cholesterol LDL Cholesterol, Calc HDL Cholesterol Cholesterol/HDL Ratio TSH Blood Type Blood Type Recheck Antibody Screen Assessment and Plan - Assessment and Plan 53yo M, POD#1 s/p L AKA 1. NWB LLE 2. Dressing to be changed on POD#2 with xeroform, gauze and GUILLERMINA. NO TAPE ON STUMP. 3. Drain to be removed on POD#2 4. Patient likely will be discharged home Sat vs Sun. Follow-up with Dr. Hidalgo in 2 weeks. 5. HH for dressing changes, pending medicine clearance. Again, I stressed to patient the importance of glucose control and compliance with medications to ensure he has the best chance of healing his stump.
[2018-01-24] MEDS ORDERED: Insulin Detemir Inj 1,000 UNIT/10 ML Vial SQ ONE (16:51)
[2018-01-24] MEDS: QUEtiapine 25 MG Tablet PO SCH (18:07)
[2018-01-25] MEDS: Insulin NovoLOG Aspart Correctional Sugar Inj SQ SCH ×6 (04:44→20:16)
[2018-01-25] MEDS: Morphine Inj 4 MG/ML Vial IV.PUSH PRN ×4 (06:05→17:53)
[2018-01-25 08:01] LABS: Hemoglobin 11.4 gm/dL (13.0-17.0)
[2018-01-25] MEDS: Enoxaparin Inj 40 MG/0.4 ML Syringe SQ SCH (08:37)
[2018-01-25] MEDS: Lisinopril 20 MG Tablet PO SCH (08:37)
[2018-01-25] MEDS: Gabapentin 300 MG Capsule PO SCH ×3 (08:37→17:53)
[2018-01-25] MEDS: Multivitamin/Minerals Therapeutic Tablet PO SCH (08:37)
[2018-01-25] MEDS: Senna/Docusate Sodium 8.6/50 MG Tablet PO SCH ×2 (08:37→20:15)
[2018-01-25] MEDS: amLODIPine 5 MG Tablet PO SCH (08:37)
--- NOTE | 2018-01-25 09:05 | P.PNOP ---
Subjective Interval history: still painful Physical Exam Vital signs: Vital Signs 01/24/18 12:00 01/24/18 16:00 01/24/18 20:00 Temperature 98.5 F 98.5 F 98.4 F Pulse Rate 106 H 105 H 109 H Respiratory Rate 16 16 20 Blood Pressure 146/74 H 142/68 H 138/65 Pulse Oximetry 99 98 97 01/24/18 23:22 01/25/18 00:00 01/25/18 08:00 Temperature 98 F 97.8 F Pulse Rate 99 H 98 H Respiratory Rate 18 18 17 Blood Pressure 135/74 155/83 H Pulse Oximetry 98 98 Intake & Output 01/24/18 01/25/18 01/25/18 18:59 06:59 18:59 Intake Total 1260 / 1260 170 / 170 Output Total 250 / 250 960 / 960 Balance 1010 / 1010 -790 / -790 Weight 74.2 kg Intake: IV 50 / 50 50 / 50 LR 1000 mL Inj 1,000 ML @ 30 0 / 0 mls/hr IV.SIG .Q24H [facility] Rx#: [id number] Ancef 1 GM Premix Inj 1 gm In 50 / 50 50 / 50 50 ml @ 100 mls/hr IV.SIG Q8H [facility] Rx#:[id number] Oral 1210 / 1210 120 / 120 Output: Urine 250 / 250 950 / 950 Wound Drainage Left Thigh Other: # Voids 5 Date of Last Bowel Movement 01/23/18 # Bowel Movements 0 Narrative: in bed, nad dressing and drain intact thigh soft Results - Labs CBC & Chem 7: 01/25/18 05:52 Laboratory Results - last 24 hr 01/24/18 01/24/18 01/24/18 04:48 10:00 10:00 Hgb Hct POC Glucose Hemoglobin A1c 6.8 H Triglycerides 151 H Cholesterol 210 H LDL Cholesterol, Calc 124 H HDL Cholesterol 56.0 Cholesterol/HDL Ratio 3.75 TSH 2.660 01/24/18 01/24/18 01/24/18 10:12 12:09 17:28 Hgb Hct POC Glucose 278 H 280 H 77 Hemoglobin A1c Triglycerides Cholesterol LDL Cholesterol, Calc HDL Cholesterol Cholesterol/HDL Ratio TSH 01/24/18 01/25/18 01/25/18 22:23 04:40 05:52 Hgb 11.4 L Hct 34.0 L POC Glucose 186 H 123 H Hemoglobin A1c Triglycerides Cholesterol LDL Cholesterol, Calc HDL Cholesterol Cholesterol/HDL Ratio TSH Assessment and Plan - Ortho Post Op Day # 2 - Assessment and Plan 53yo M, POD#2 s/p L AKA 1. NWB LLE 2. Dressing to be changed on POD#2 with xeroform, gauze and GUILLERMINA. NO TAPE ON STUMP. 3. Drain to be removed on POD#2 4. Patient likely will be discharged home Sat vs Sun. Follow-up with Dr. Hidalgo in 2 weeks. 5. for dressing changes, pending medicine clearance. Again, I stressed to patient the importance of glucose control and compliance with medications to ensure he has the best chance of healing his stump.
--- NOTE | 2018-01-25 10:30 | P.PN ---
Subjective Interval history: This is a pleasant 53 y/o male who was brought in by his Primary Orthopedic surgeon Doctor Krystina Hidalgo for Left Above Knee amputation, in a patient with diagnosis of Left Below Knee amputation wound dehiscence 01/23/18. patient with history of feet infection, has Hypertension, DM II, Non compliance history. Seen in his bedroom, stable. 01/25: Stable no nausea, vomit or diarrhea, improving his blood sugars, removed his insulin pre meal to avoid Hypoglycemia, will continue Levemir and medium sliding scale and follow closely. no other complaint but wants to go home. Physical Exam Vital signs: Vital Signs 01/24/18 12:00 01/24/18 16:00 01/24/18 20:00 Temperature 98.5 F 98.5 F 98.4 F Pulse Rate 106 H 105 H 109 H Respiratory Rate 16 16 20 Blood Pressure 146/74 H 142/68 H 138/65 Pulse Oximetry 99 98 97 01/24/18 23:22 01/25/18 00:00 01/25/18 08:00 Temperature 98 F 97.8 F Pulse Rate 99 H 98 H Respiratory Rate 18 17 Blood Pressure 135/74 155/83 H Pulse Oximetry 98 98 Intake & Output 01/24/18 01/25/18 01/25/18 18:59 06:59 18:59 Intake Total 1260 / 1260 170 / 170 Output Total 250 / 250 960 / 960 Balance 1010 / 1010 -790 / -790 Weight 74.2 kg Intake: IV 50 / 50 50 / 50 LR 1000 mL Inj 1,000 ML @ 30 0 / 0 mls/hr IV.SIG .Q24H RENAN Rx#: [id number] Ancef 1 GM Premix Inj 1 gm In 50 / 50 50 / 50 50 ml @ 100 mls/hr IV.SIG Q8H RENAN Rx#:[id number] Oral 1210 / 1210 120 / 120 Output: Urine 250 / 250 950 / 950 Wound Drainage Left Thigh Other: # Voids 5 Date of Last Bowel Movement 01/23/18 # Bowel Movements 0 Narrative: GENERAL: No acute distress. HEENT: PERRLA, EOMI. No scleral icterus or conjunctival pallor. No lid lag or facial droop. CARDIOVASCULAR: Regular rate and rhythm. No obvious murmurs to auscultation. No chest tenderness to palpation. RESPIRATORY: No obvious rhonchi or wheezing. Clear to auscultation. Breath sounds equal bilaterally. GASTROINTESTINAL: Abdomen soft, non-tender, nondistended. BS normal. MUSCULOSKELETAL: Extremities without clubbing, cyanosis, Left Above Knee amputation. dressed and with Hemovac in place NEUROLOGICAL: Awake, alert and oriented x4. No focal neurologic deficits. Moving both upper and lower extremities spontaneously. Results - Labs CBC & Chem 7: 01/25/18 05:52 Laboratory Results - last 24 hr 01/24/18 01/24/18 01/24/18 04:48 10:00 10:00 Hgb Hct POC Glucose Hemoglobin A1c 6.8 H Triglycerides 151 H Cholesterol 210 H LDL Cholesterol, Calc 124 H HDL Cholesterol 56.0 Cholesterol/HDL Ratio 3.75 TSH 2.660 01/24/18 01/24/18 01/24/18 12:09 17:28 22:23 Hgb Hct POC Glucose 280 H 77 186 H Hemoglobin A1c Triglycerides Cholesterol LDL Cholesterol, Calc HDL Cholesterol Cholesterol/HDL Ratio TSH 01/25/18 01/25/18 04:40 05:52 Hgb 11.4 L Hct 34.0 L POC Glucose 123 H Hemoglobin A1c Triglycerides Cholesterol LDL Cholesterol, Calc HDL Cholesterol Cholesterol/HDL Ratio TSH - Procedures Date of procedure: 01/23/18 Procedure: Left above-knee amputation Anesthesia: GETA Surgeon: Krystina Hidalgo MD Assessment and Plan - Plan 1. non healing left BKA now converted to AKA and has been dressed and with Hemovac in place Probable will be removed later today. 2. Hypertension controlled continue home medicines 3. DM II Uncontrolled giving Levemir 30 units in am and Medium sliding scale and following with Hemoglobin A1C 6.8 Goal blood sugar below 180 gr/dl 4. Hyperlipidemia on high intensity statins 5. Medical non compliance 6. Marijuana abuse strongly recommended to stop this behavior. Follow laboratory DVT Prophylaxis: Heparin sq Social work for d/c planning as needed. Code Status: Full Code. Discussed Condition With: Patient and Nurse Miss Bhatt Discharge Planning: As per Attending physician.
[2018-01-25] MEDS: Insulin Detemir Inj 1,000 UNIT/10 ML Vial SQ SCH (10:51)
[2018-01-25] MEDS: QUEtiapine 25 MG Tablet PO SCH (15:40)
[2018-01-26] MEDS: Insulin NovoLOG Aspart Correctional Sugar Inj SQ SCH ×4 (03:20→16:55)
--- NOTE | 2018-01-26 09:26 | P.PN ---
Subjective Interval history: This is a pleasant 53 y/o male who was brought in by his Primary Orthopedic surgeon Doctor Krystina Hidalgo for Left Above Knee amputation, in a patient with diagnosis of Left Below Knee amputation wound dehiscence 01/23/18. patient with history of feet infection, has Hypertension, DM II, Non compliance history. Seen in his bedroom, stable. 01/25: Stable improving his blood sugars, removed his insulin pre meal to avoid Hypoglycemia, will continue Levemir and medium sliding scale and follow closely. no other complaint but wants to go home. 01/26: Seen in his bedroom, continue on Insulin to try to keep his blood sugar below 180 gr/dl. no complaint wants to go home, okay to discharge from Medicine standpoint and continue His Home medicine and follow by PCP. Physical Exam Vital signs: Vital Signs 01/25/18 12:00 01/25/18 12:04 01/25/18 15:39 Temperature 98.0 F Pulse Rate 95 H Respiratory Rate 18 20 8 L Blood Pressure 145/71 H Pulse Oximetry 99 01/25/18 16:00 01/25/18 20:00 01/26/18 00:00 Temperature 98.1 F 98.8 F 97.7 F Pulse Rate 105 H 117 H 98 H Respiratory Rate 18 20 18 Blood Pressure 137/80 132/62 148/72 H Pulse Oximetry 99 99 98 01/26/18 08:00 Temperature 97.8 F Pulse Rate 108 H Respiratory Rate 19 Blood Pressure 149/85 H Pulse Oximetry 98 Intake & Output 01/25/18 01/26/18 01/26/18 18:59 06:59 18:59 Intake Total 1800 / 1800 Output Total 1000 / 1000 850 / 850 Balance 800 / 800 -850 / -850 Weight 67.4 kg Intake: Oral 1800 / 1800 Output: Urine 1000 / 1000 850 / 850 Other: Date of Last Bowel Movement 01/23/18 Narrative: GENERAL: No acute distress. HEENT: PERRLA, EOMI. No scleral icterus or conjunctival pallor. No lid lag or facial droop. CARDIOVASCULAR: Regular rate and rhythm. No obvious murmurs to auscultation. No chest tenderness to palpation. RESPIRATORY: No obvious rhonchi or wheezing. Clear to auscultation. Breath sounds equal bilaterally. GASTROINTESTINAL: Abdomen soft, non-tender, nondistended. BS normal. MUSCULOSKELETAL: Extremities without clubbing, cyanosis, Left Above Knee amputation. dressed. NEUROLOGICAL: Awake, alert and oriented x4. No focal neurologic deficits. Moving both upper and lower extremities spontaneously. Results - Labs CBC & Chem 7: 01/25/18 05:52 Laboratory Results - last 24 hr 01/25/18 01/25/18 01/26/18 17:41 19:27 03:20 POC Glucose 76 151 H 126 H 01/26/18 07:47 POC Glucose 143 H - Procedures Date of procedure: 01/23/18 Procedure: Left above-knee amputation Anesthesia: GETA Surgeon: Krystina Hidalgo MD Assessment and Plan - Plan 1. non healing left BKA now converted to AKA and has been dressed and with Hemovac removed yesterday. 2. Hypertension controlled continue home medicines 3. DM II Uncontrolled giving Levemir 30 units in am and Medium sliding scale and following with Hemoglobin A1C 6.8 Goal blood sugar below 180 gr/dl 4. Hyperlipidemia on high intensity statins 5. Medical non compliance 6. Marijuana abuse strongly recommended to stop this behavior. Follow laboratory DVT Prophylaxis: Heparin sq Social work for d/c planning as needed. Signed off the case. Code Status: Full code. Discussed Condition With: Patient and Nurse Miss Merritt. Discharge Planning: Hospitalist clear for discharge.
[2018-01-26] MEDS ORDERED: Insulin Detemir Inj 1,000 UNIT/10 ML Vial SQ SCH (09:27)
[2018-01-26] MEDS: Insulin Detemir Inj 1,000 UNIT/10 ML Vial SQ SCH (09:34)
[2018-01-26] MEDS: Gabapentin 300 MG Capsule PO SCH ×3 (09:36→17:16)
[2018-01-26] MEDS: Senna/Docusate Sodium 8.6/50 MG Tablet PO SCH (09:36)
[2018-01-26] MEDS: Enoxaparin Inj 40 MG/0.4 ML Syringe SQ SCH (09:36)
[2018-01-26] MEDS: Multivitamin/Minerals Therapeutic Tablet PO SCH (09:37)
[2018-01-26] MEDS: Lisinopril 20 MG Tablet PO SCH (09:37)
[2018-01-26] MEDS: amLODIPine 5 MG Tablet PO SCH (09:37)
[2018-01-26 16:55] VITALS: BP 136/81; PULSE 112; TEMP 98.2; O2SAT 97
[2018-01-26] MEDS: QUEtiapine 25 MG Tablet PO SCH (17:16)
[2018-01-26 18:06] VITALS: RESP 18
[2018-01-27] MEDS ORDERED: Insulin Detemir Inj 1,000 UNIT/10 ML Vial SQ SCH (09:00)
--- NOTE | 2018-04-15 11:50 | P.DS ---
Date of admission: 01/23/18 16:56 Primary care physician: Smiley Louie Attending physician on discharge: Krystina Hidalgo Brief History from admission: 53-year-old gentleman who presented to my office with a left below-knee amputation wound dehiscence with infection. Patient initially underwent an irrigation and debridement with revision of his below-knee amputation. Patient subsequently developed recurrent wound dehiscence with recurrent infection. At this time, given his stump length was only 10 cm, I recommended irrigation and debridement with possible revision below-knee amputation versus left above-knee amputation. DS: Diagnosis - Discharge Diagnosis (1) Post op infection Status: Acute DS: Medications - Discharge Medications Prescriptions: hydrocodone-acetaminophen 1 - 2 tab PO Q4-6H PRN #45 tab PRN Reason: Pain DS: Summary Hospital Course: Patient underwent revision of left below knee amputation to above knee amputation due to chronic infection and wound issues. Postoperatively, patient' s pain was controlled with IV and oral pain medications and patient was transitioned to a regular diet as tolerated. Patient was mobilized with PT. On POD#2, his drain was removed and dressing changed. - Time Spent with Patient Total time spent providing and/or coordinating discharge services: Less than 30 minutes - Quality: VTE Deep Vein Thrombosis/Pulmonary Embolism Present on Admission: No Results Procedures completed during hospitalization: Left above-knee amputation Completed studies during hospitalization: Pending at discharge 01/23/18 16:37 Surgical [PTH] Routine Discharge Plan - Discharge Disposition Patient Disposition: 01 Discharge Home - Discharge Condition Condition: Good - Discharge Order Discharge Orders: Discharge Order (Routine); Ordered 01/26/18 Ordered By: Nitin Esteves Clear for Discharge (Routine); Ordered 01/26/18 Ordered By: Jomar Jones - Discharge Details Anticipated Discharge Date: 01/26/18 - Physicians Team Primary Care Provider: Smiley Louie, Attending Provider: Krystina Hidalgo Other Providers: Jomar Jones MD - Rxs /Orders / Referrals /Forms Prescriptions: New hydrocodone-acetaminophen 5-325 mg Tablet 1 - 2 tab PO Q4-6H PRN (Reason: Pain) Qty: 45 RF: 0 Continue amlodipine 5 mg Tablet 5 mg PO DAILY gabapentin 300 mg Capsule 300 mg PO TID lisinopril 20 mg Tablet 20 mg PO DAILY metformin 500 mg Tablet 500 mg PO BID quetiapine 25 mg Tablet 12.5 mg PO AC DINNER Referrals: [facility], [Primary Care Provider] - See Instructions - Discharge Instructions Patient Printed Instructions: Prevent Infections (GEN), Acute Wound Care (DC), Incision and Drainage (DC)
== END 2018-01-26 18:12 | disposition home or self-care (01) | DRG 476 ==
LOC: INTOOBSV 13:02 → HSDI 13:02 → N07 19:06
PROVIDERS: ADMIT Orthopaedic Surgery Orthopaedic Surgery of the Spine; ATTEND Orthopaedic Surgery Orthopaedic Surgery of the Spine
CPT/HCPCS: 80061; 82948; 82962; 83036; 84443; 85014; 85018; 86850; 86900; 86901; 88307; 88311; 94150; 96361; 96365; 96366; 96372; 96375; 96376; G0378; J0330; J0360; J0690; J1100; J1170; J1580; J1650; J1815; J2175; J2250; J2270; J2405; J2704; J3010; J7120